=== PATIENT | female | born 1960 | race Caucasian/White ===

== ENCOUNTER → 2020-03-18 10:47 | Outpatient (BNVA) | payer OTHER, SELFPAY | PROVIDERS: PCP Internal Medicine; Visit Provider Physician Assistant Medical | DX: M25.531 Pain in right wrist (principal) | CPT/HCPCS: 99203 ==

== ENCOUNTER → 2020-03-25 09:56 | Outpatient (BNVA) | payer OTHER, SELFPAY | PROVIDERS: PCP Internal Medicine; Visit Provider Physician Assistant Medical | DX: M65.4 Radial styloid tenosynovitis [de Quervain] (principal) | CPT/HCPCS: 99213 ==

== ENCOUNTER → 2020-04-07 09:35 | Outpatient (BNVA) | payer OTHER, SELFPAY | PROVIDERS: PCP Internal Medicine; Visit Provider Physician Assistant Medical | DX: M18.11 Unilateral primary osteoarthritis of first carpometacarpal joint, right hand (principal) | CPT/HCPCS: 73110; 73130; 99213 ==

== ENCOUNTER 2020-04-20 08:30 | Outpatient (RCR) | payer OTHER, SELFPAY ==
--- NOTE | 2020-04-20 09:23 | MHC.OT.DC ---
[address] [phone] F: [phone] Occupational Therapy Discharge Note Provider: JOO ESCUDERO Diagnosis: RIGHT DEQUERVAINS TENOSYNOVITIS Date of Surgery: Date of Evaluation: 03/22/20 Date of Discharge: 04/20/20 Treatments to Date: 11 Cancellations to Date: 0 No Shows to Date: 0 Discharge Status: Recommend MD Follow-up Discharge Summary: Pt seen for right Dequervains tenosynovitis due to strain at work with slow improvement in pain and strength. 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 Recent onset of thumb volar mcpj pain with mild thumb edema, no thickening of flexor tendon and no digit locking in flexion. Today she presents with inc in pain , dec strength and dec in dexterity on the Functional Dexterity Test. Pt to follow up with MD tomorrow. Skilled OT is not indicated at this time Electronically Signed By: Mandie Pagan OT CHT CLT Reviewed/agree with student documentation: N/A Therapist: LUCIEN CALVO OTR/L Please Sign and return to therapist, thank you for your referral.
== END 2020-05-05 07:28 | disposition other institution (70) ==
LOC: HO.OT 08:30
PROVIDERS: PCP Internal Medicine; Visit Provider Physician Assistant Medical
DX: M65.4 Radial styloid tenosynovitis [de Quervain] (principal)
CPT/HCPCS: 97033; 97035; 97110; 97140; 97165

== ENCOUNTER 2020-04-20 16:24 | Outpatient (REF) | payer OTHER, SELFPAY ==
--- NOTE | ~2020-04-20 | MM_ITS ---
EXAMINATION: MM SCREENING DIGITAL BREAST TOMOSYNTHESIS, BILATERAL CLINICAL INFORMATION: Screening. Asymptomatic. The lifetime risk of breast cancer based on the Tyrer-Cuzick Model is 8.5%. COMPARISON: Mammography: April 15, 2019 and studies dating back to March 11, 2013 TECHNIQUE: Digital breast tomosynthesis is performed in both the craniocaudal and mediolateral oblique views along with computer-aided detection (CAD). Synthesized 2D images are generated from the tomosynthesis. FINDINGS: The breasts are heterogeneously dense, which may obscure small masses (ACR BI-RADS breast composition Category c). There are no significant masses, abnormal calcifications, or other abnormalities. MM/MM tomosynthesis screening BI IMPRESSION: There are no significant changes from prior study. ASSESSMENT: BI-RADS 1: Negative RECOMMENDATION: Routine annual mammography screening. This patient's information was entered into a reminder system with a target due date for their next mammogram.
== END 2020-04-20 16:25 | disposition home or self-care (01) ==
LOC: HO.MAMMO 16:24
PROVIDERS: Visit Provider Internal Medicine
DX: Z12.31 Encounter for screening mammogram for malignant neoplasm of breast (principal)
CPT/HCPCS: 77063; 77067

== ENCOUNTER → 2020-04-21 09:07 | Outpatient (BNVA) | payer OTHER, SELFPAY | PROVIDERS: PCP Internal Medicine; Visit Provider Physician Assistant Medical | DX: M18.11 Unilateral primary osteoarthritis of first carpometacarpal joint, right hand (principal); M65.811 Other synovitis and tenosynovitis, right shoulder | CPT/HCPCS: 99213 ==

== ENCOUNTER → 2020-05-02 10:06 | Outpatient (BNVA) | payer OTHER, SELFPAY | PROVIDERS: PCP Internal Medicine; Visit Provider Physician Assistant | DX: S63.8X1D Sprain of other part of right wrist and hand, subsequent encounter (principal); X58.XXXD Exposure to other specified factors, subsequent encounter | CPT/HCPCS: 99213 ==

== ENCOUNTER 2020-05-09 17:12 | Outpatient (REF) | payer OTHER, SELFPAY | END 2020-05-09 17:13 | disposition home or self-care (01) | LOC: HO.HOSX 17:12 | PROVIDERS: Visit Provider Orthopaedic Surgery | DX: Z13.89 Encounter for screening for other disorder (principal) ==

== ENCOUNTER → 2020-05-10 10:49 | Outpatient (BNVA) | payer OTHER, SELFPAY | PROVIDERS: Visit Provider Orthopaedic Surgery | DX: M18.11 Unilateral primary osteoarthritis of first carpometacarpal joint, right hand (principal) | CPT/HCPCS: 20600; 99202; J1020 ==

== ENCOUNTER → 2020-05-16 10:12 | Outpatient (BNVA) | payer OTHER, SELFPAY | PROVIDERS: PCP Internal Medicine; Visit Provider Physician Assistant | DX: M79.644 Pain in right finger(s) (principal) | CPT/HCPCS: 99213 ==

== ENCOUNTER 2020-06-20 17:51 | Outpatient (REF) | payer OTHER, SELFPAY ==
--- NOTE | ~2020-06-20 | XR_ITS ---
EXAMINATION: XR WRIST, RIGHT CLINICAL INFORMATION: Pain right wrist. COMPARISON: None TECHNIQUE: PA, lateral, and oblique views of the right wrist. FINDINGS: The bones and soft tissues are normal. No fracture. Alignment is anatomic with normal joint spaces. No erosions or abnormal soft tissue calcifications. XR/XR wrist RT min 3V IMPRESSION: Unremarkable right wrist exam.
== END 2020-06-20 17:52 | disposition home or self-care (01) ==
LOC: HO.HOSX 17:51
PROVIDERS: Visit Provider Orthopaedic Surgery
DX: M25.531 Pain in right wrist (principal)
CPT/HCPCS: 73110

== ENCOUNTER → 2020-06-21 08:21 | Outpatient (BNVA) | payer OTHER, SELFPAY | PROVIDERS: PCP Internal Medicine; Visit Provider Orthopaedic Surgery | DX: M18.11 Unilateral primary osteoarthritis of first carpometacarpal joint, right hand (principal); R20.0 Anesthesia of skin; R20.2 Paresthesia of skin | CPT/HCPCS: 99212 ==

== ENCOUNTER 2020-07-18 11:58 | Outpatient (REF) | payer OTHER, SELFPAY ==
[2020-07-18 12:05] LABS: MANUAL DIFF FLAG NO
[2020-07-18 12:33] LABS: Basophils Percent Auto 0.2 % (0-2); Eosinophils Absolute Auto 0.4 X10*3/uL (0.0-0.4); Hemoglobin 14.3 g/dl (12.0-16.0); Imm Gran Abs Auto 0.04 X10*3/uL (0.00-0.03); Imm Gran Pct Auto 0.5 % (0.0-0.4); Lymphocytes Absolute Auto 2.5 X10*3/uL (1.2-4.9); Lymphocytes Percent Auto 29.3 % (20-40); Mean Corpuscular HGB Conc 33.3 g/dl (31.0-35.0); Mean Corpuscular Hemoglobin 31.6 pg (27.0-33.0); Mean Corpuscular Volume 95.1 fL (80-98); Mean Platelet Volume 12.9 fL (9.4-12.3); Monocytes Absolute Auto 0.8 X10*3/uL (0.1-1.2); Monocytes Percent Auto 8.7 % (2-11); Neutrophils Absolute Auto 4.9 X10*3/uL (2.0-8.3); Neutrophils Percent Auto 56.3 % (45-73); Platelet Count 239 X10*3/uL (160-400); Red Blood Count 4.52 X10*6/uL (4.20-5.50); Red Cell Distribution Width 12.8 % (11.0-16.0); White Blood Count 8.7 X10*3/uL (4.8-10.8)
[2020-07-18 12:53] LABS: Glucose Urine UA NEG (NEG); Leukocyte Esterase Urine NEG (NEG); Nitrite Urine NEG (NEG); Specific Gravity - Urine 1.025 (1.005-1.025); Urine Blood NEG (NEG); Urine Ketones NEG (NEG); Urine Protein 1+ MG/DL (NEG-TRACE)
[2020-07-18 13:00] LABS: Appearance Urine CLEAR; Color Urine YELLOW
[2020-07-18 13:12] LABS: Estimated Average Glucose 128 mg/dL; Hemoglobin A1c % 6.1 %
[2020-07-18 13:19] LABS: Bacteria Urine 1+ /LPF; Mucus Urine 3+ /LPF; RBC Urine 0-2 /HPF (0); Squamous Epithelial Cell Urine 2+ /LPF; WBC Urine 0 /HPF (0-4)
[2020-07-18 13:28] LABS: Alanine Aminotransferase 21 U/L (0-31); Albumin Level 4.4 g/dL (3.5-5.0); Alkaline Phosphatase 67 U/L (39-117); Anion Gap 16 (12-20); Aspartate Amino Transferase 15 U/L (5-31); Bilirubin Total 0.6 mg/dL (0.0-1.0); Blood Urea Nitrogen 18 mg/dL (9-16); Calcium 9.7 mg/dL (8.4-10.2); Carbon Dioxide 26 mmol/L (22-29); Chloride 104 mmol/L (96-108); Cholesterol 218 mg/dL; Estimated Glomerular Filt Rate > 60; Glucose Fasting 133 mg/dL (60-99); HDL Cholesterol 54 mg/dL; LDL Cholesterol Calculated 150 mg/dl; Potassium 3.7 mmol/L (3.3-5.1); Sodium 142 mmol/L (135-145); Total Protein 7.1 g/dL (6.5-8.0); Triglycerides 74 mg/dL
[2020-07-18 13:40] LABS: TSH reflex Free T4 1.57 uIU/mL (0.32-4.0); Vitamin D 25-OH Total 39.5 ng/mL (>30)
== END 2020-07-18 11:59 | disposition home or self-care (01) ==
LOC: HO.LNP 11:58
PROVIDERS: Visit Provider Internal Medicine
DX: Z00.00 Encounter for general adult medical examination without abnormal findings (principal); E03.9 Hypothyroidism, unspecified; R73.03 Prediabetes; I10 Essential (primary) hypertension; E78.00 Pure hypercholesterolemia, unspecified; E55.9 Vitamin D deficiency, unspecified
CPT/HCPCS: 80053; 80061; 81001; 81003; 82043; 82306; 83036; 84443; 85025

== ENCOUNTER 2020-08-11 08:41 | Outpatient (REF) | payer OTHER, SELFPAY ==
--- NOTE | 2020-08-11 08:44 | EMG_ITS ---
Right median and ulnar motor and sensory studies were performed. Right radial sensory study was performed and paraspinal muscles were tested with a needle. IMPRESSION: [id number] right median neuropathy across carpal tunnel. MD GENEVA Macias/KASSANDRA / [phone]
== END 2020-08-11 08:42 | disposition home or self-care (01) ==
LOC: HO.NEURO 08:41
PROVIDERS: PCP Internal Medicine; Visit Provider Orthopaedic Surgery
DX: R20.0 Anesthesia of skin (principal); R20.2 Paresthesia of skin
CPT/HCPCS: 95886; 95909

== ENCOUNTER → 2020-09-02 13:09 | Outpatient (BNVA) | payer OTHER, SELFPAY | PROVIDERS: PCP Internal Medicine; Visit Provider Physician Assistant Medical ==

== ENCOUNTER → 2020-09-21 13:24 | Outpatient (BNVA) | payer OTHER, SELFPAY | PROVIDERS: Visit Provider Orthopaedic Surgery | DX: G56.01 Carpal tunnel syndrome, right upper limb (principal); M18.11 Unilateral primary osteoarthritis of first carpometacarpal joint, right hand | CPT/HCPCS: 99212 ==

== ENCOUNTER 2020-10-25 09:25 | Day surgery (SDC) | payer OTHER, SELFPAY ==
[2020-10-25 10:00] VITALS: BP 168/77; PULSE 70; RESP 20; TEMP 36.7; O2SAT 97
[2020-10-25 11:45] VITALS: BP 148/77; PULSE 72; RESP 18; TEMP 36.3; O2SAT 95
--- NOTE | 2020-10-25 11:53 | MHC.SHP ---
Pre-Procedural Eval Section A Date of Service: 10/25/20 The patient is an INPATIENT: No Changes since office visit: No Cold of Flu in the past 2 weeks, No New Medical Problems, No Changes in Medication and No Patient answered all questions The History & Physical has been completed within 30 days and I have reviewed it.: Yes Section B Chief Complaint: carpal tinnel Allergies: Allergies Allergy/AdvReac Type Severity Reaction Status Date / Time amoxicillin [AMOXICILLIN] Allergy Severe HIVES/RASH, Verified 09/21/20 13:44 rash/hives ibuprofen Allergy Severe rash Verified 10/25/20 09:45 Sulfa (Sulfonamide Allergy Severe HIVES/RASH, Verified 09/21/20 13:44 Antibiotics) rash/hives [SULFA(SULFONAMIDE ANTIBIOTICS)] codeine [CODEINE] Allergy Mild VOMITING Verified 09/21/20 13:44 Plan I have reviewed the history and physical and performed a pertinent physical examination on my patient. No changes have occurred unless specified.
--- NOTE | 2020-10-25 11:53 | W.PM.OPN ---
Operative Note Operative Note Date of Service: 10/25/20 Narrative: Preop diagnosis: 1. Right Carpal tunnel syndrome Postop diagnosis: same Procedure: 1. Right Carpal tunnel release Surgeon: Michelle Cox MD Anesthesia: local block using 1% lidocaine with epinephrine Findings: Thickened transverse carpal ligament. EBL: Less than 5 mL Specimens: None Complications: None Disposition: Brought to recovery room in stable condition Plan: Follow-up for 7-10 days for wound check and suture removal Indications: The patient is 60 years old, with right carpal tunnel syndrome that has been unresponsive to nonoperative management. The risks and benefits of operative treatment including but not limited to risk of damage to blood vessels, nerves, tendons, infection, persistent pain, persistent symptoms, or possible need for additional surgery were discussed with the patient and the patient wishes to proceed with surgery. Procedure: Once consent was obtained a local block was performed using a combination of 1% lidocaine with epinephrine. The patient was then brought back to the operating suite and placed on the operative table in supine position. A tourniquet was applied to the proximal aspect of the right upper extremity and the limb was prepped and draped in a standard surgical fashion. Once assured that we had a good block, a 1.5 cm longitudinal incision was made centered over the carpal tunnel. The incision was made through the skin to the subcutaneous tissues using a #15 blade. Dissection was made down to the level of the transverse carpal ligament with care being taken to protect the palmar cutaneous nerve. Once the transverse carpal ligament was clearly visualized, a longitudinal incision was made in the transverse carpal ligament 1st using a #15 blade, then using tenotomy scissors under direct visualization. Care was taken to look for and protect the motor branch of the median nerve when seen in this area. Once satisfied with our carpal tunnel release the wound was copiously irrigated with normal saline and hemostasis was obtained with a brief period of local pressure. The skin edges were reapproximated with some 5.0 nylon suture material and a sterile dressing was applied. The patient appears to have tolerated the procedure well and with no complications. All digits were well vascularized at the conclusion of the case.
== END 2020-10-25 12:17 | disposition home or self-care (01) ==
PROVIDERS: PCP Internal Medicine; Visit Provider Orthopaedic Surgery
PROC: (CPT 64721; principal; 2020-10-25 10:50)
DX: G56.01 Carpal tunnel syndrome, right upper limb (principal); M18.11 Unilateral primary osteoarthritis of first carpometacarpal joint, right hand
CPT/HCPCS: 64721

== ENCOUNTER → 2020-11-07 12:27 | Outpatient (BNVA) | payer OTHER, SELFPAY | PROVIDERS: PCP Internal Medicine; Visit Provider Orthopaedic Surgery | DX: Z47.89 Encounter for other orthopedic aftercare (principal); Z86.69 Personal history of other diseases of the nervous system and sense organs | CPT/HCPCS: 99212 ==

== ENCOUNTER 2020-11-25 08:06 | Outpatient (REF) | payer OTHER, SELFPAY ==
--- NOTE | ~2020-11-25 | MM_ITS ---
EXAMINATION: BONE DENSITOMETRY CLINICAL INDICATION: Osteopenia. COMPARISON: Baseline BD dated 02/14/2018. TECHNIQUE: Using a [employer] DXA System (software version: 13.1) manufactured by [employer], dual-energy x-ray absorptiometry was performed of the lumbar spine and left hip. The images are of good technical quality. Summary results are attached. FINDINGS: AP SPINE L1-L4: Current: BMD 1.033 g/cm2, Z-score -0.8, T-score -1.2, osteopenia, 2.2% decrease from baseline (<5% change is not significant). Baseline: BMD 1.056 g/cm2. LEFT FEMUR, NECK: Current: BMD 0.925 g/cm2, Z-score -0.1, T-score -0.8, normal. Baseline: BMD 0.858 g/cm2. LEFT FEMUR, TOTAL: Current: BMD 1.024 g/cm2, Z-score 0.5, T-score 0.1, normal, 9.2% increase from baseline (<5% change is not significant). Baseline: BMD 0.938 g/cm2. IDENTIFIED RISK FACTORS: Menopause, family history (parent hip fracture), hyperthyroid, secondary osteoporosis, Thiazide. HISTORY OF FRACTURE: None listed. MEDICATIONS: Calcium, vitamin D. MM/XR DEXA axial skeleton IMPRESSION: 1. DIAGNOSIS: Osteopenia based on the lowest T-score value of -1.2 in the lumbar spine applying World Health Organization criteria. 2. 10-YEAR FRACTURE RISK PREDICTION, FRAX: Major osteoporotic fracture (clinical spine, forearm, hip or shoulder) 12.3%. Hip fracture 0.3%. 3. Treatment Recommendations: NOF guidelines recommend consideration for treatment in postmenopausal women and men age 50 and older presenting with the following: -A hip or vertebral (clinical or morphometric) fracture. -T-score less than or equal to -2.5 at the femoral neck or spine after appropriate evaluation to exclude secondary causes. -Low bone mass at the hip or spine and a 10-year fracture probability by FRAX of greater than or equal to 3% for hip fracture or greater than or equal to 20% for major osteoporotic fracture based on the [place] adapted WHO algorithm. 4. Other Recommendations: All treatment decisions require clinical judgment and consideration of individual patient factors, including patient preferences, comorbidities, previous drug use, risk factors not captured in the FRAX model (e.g. frailty, falls, vitamin D deficiency, increased bone turnover, interval significant decline in bone density) and possible under or overestimation of fracture risk by FRAX. Additional medical evaluation for secondary cause of low bone mineral density may be appropriate. FUTURE SCAN RECOMMENDATION: People with diagnosed cases of osteoporosis or at high risk for fracture should have regular bone mineral density tests. For patients eligible for Medicare, routine testing is allowed once every 2 years. The testing frequency can be increased to one year for patients who have rapidly progressing disease, those who are receiving or discontinuing medical therapy to restore bone mass, or have additional risk factors.
== END 2020-11-25 08:07 | disposition home or self-care (01) ==
LOC: HO.MAMMO 08:06
PROVIDERS: Visit Provider Internal Medicine
DX: Z13.820 Encounter for screening for osteoporosis (principal); M85.80 Other specified disorders of bone density and structure, unspecified site; Z78.0 Asymptomatic menopausal state; Z87.81 Personal history of (healed) traumatic fracture; Z79.899 Other long term (current) drug therapy
CPT/HCPCS: 77080

== ENCOUNTER → 2020-12-06 11:25 | Outpatient (BNVA) | payer OTHER, SELFPAY | PROVIDERS: Visit Provider Orthopaedic Surgery | DX: G56.01 Carpal tunnel syndrome, right upper limb (principal); M18.11 Unilateral primary osteoarthritis of first carpometacarpal joint, right hand; E03.9 Hypothyroidism, unspecified; Z87.891 Personal history of nicotine dependence | CPT/HCPCS: 99212 ==

== ENCOUNTER → 2021-01-10 11:25 | Outpatient (BNVA) | payer OTHER, SELFPAY | PROVIDERS: PCP Internal Medicine; Visit Provider Orthopaedic Surgery | DX: M18.11 Unilateral primary osteoarthritis of first carpometacarpal joint, right hand (principal); E03.9 Hypothyroidism, unspecified; G56.01 Carpal tunnel syndrome, right upper limb; Z88.6 Allergy status to analgesic agent; Z88.2 Allergy status to sulfonamides; Z88.8 Allergy status to other drugs, medicaments and biological substances; Z87.891 Personal history of nicotine dependence | CPT/HCPCS: 99212 ==

== ENCOUNTER 2021-01-13 11:00 | Outpatient (RCR) | payer OTHER, SELFPAY ==
--- NOTE | 2020-12-12 15:48 | MHC.OT.OEV ---
[address] [phone] F: [phone] Occupational Therapy Evaluation Diagnosis: CARPAL TUNNEL SYNDROME Date of Onset: 02/22/20 Date of Surgery: 10/25/20 Attending Provider: Michelle Benavides Prescribed Treatment: FRANCISCO SEARS Follow Up Appointment: 01/10/21 History of Current Condition: INJURY AT WORK WHERE SHE WAS PACKING ITEMS WITH NEED TO INCREASE PRESSURE/FORCE THROUGH HAND. SEEN IN OUTPATIENT OT FROM MARCH TO APRIL 2020. UNDERWENT R CTR WITH DR BENAVIDES ON 10/25/20. EMG 08/16/20 [id number] right median neuropathy across carpal tunnel. 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 REQUIRED TO LIFT ABOUT 20 POUNDS. HAS BEEN OUT OF WORK SINCE MID- JULY 2020. 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 OCCASIONAL TROUBLE WITH ZIPPERS. PICKING UP SMALLER ITEMS/ OBJECTS. Sleep: MILD DIFFICULTIES Driving: IMPROVING, USING RIGHT HAND MORE. Vision: EYE GLASSES Balance: WNL Pain Assessment Pain Score: 1-7/10 Pain Scale Used: Numeric (0 - 10) Pain Location and Description: 1-2/10 AT REST 4-7/10 WITH USE SHARP, THROBBING THENAR AND HYPOTHENAR EMINENCE OF RIGHT HAND Aggravating Factors: GRIPPING Alleviating Factors: TYLENOL 4-5 HOURS. HAS NOT USED HEAT/ ICE RECENTLY. USED ICE AFTER SURGERY. USING LEFT HAND FOR LIFTING TASKS OR PAINFUL ACTIVITIES. Skin and Soft Tissue Assessment Skin and Soft Tissue: Redness Swelling Scar Tissue Comments: HEALED VOLAR SCAR, EDEMA TO VOLAR PALM Sensory Assessment Temperature: Light Touch: WFL Proprioception: Vibration: Comments: SEMMES JOSSELIN - DIMINISHED LIGHT TOUCH TO VOLAR PALM AT SURGICAL SITE Edema Assessment Upper Extremity: Right Impaired Lower Extremity: Comments: MILD EDEMA TO VOLAR PALM AT SURGICAL SITE Dexterity Assessment Dexterity: Right Impaired Comments: 9 HOLE PEG TEST: RIGHT 33 SECONDS, LEFT 31 SECONDS Special Tests Comments: AROM(PROM) Strength Wrist Flexion: R 50, L 60 Extension: R 50, L 70 Ulnar Deviation: Radial Deviation: Comments: MILD DISCOMFORT WITH ULNAR DEVIATION ON RIGHT Flexion: Extension: Ulnar Deviation: Radial Deviation: Comments: Thumb Thumb CMC Flexion: Thumb MCP Flexion: Thumb IP Flexion: Radial Abduction: Palmar Abduction: Flora (Kapandji 0-10): R 9/10, L 10/10 Comments: Digits Index MCP: PIP: DIP: Long MCP: PIP: DIP: Ring MCP: PIP: DIP: Small MCP: PIP: DIP: Comments: Gross Grasp: R 15, L 58 Lateral Pinch: R 8, L 16 Two-Point Pinch: R 5, L 11 Three-Jaw Vinay: R 5, L 11 Comments: SUBMAX EFFORT RIGHT STRENGTH TESTING; PAIN WITH TWO POINT PINCH Patient Education Primary Language: Paraguayan Sub Prior Required: No Current Knowledge: Understands information with skills for self-management Teaching Method: Demonstration Handouts Verbal Education Needs Identified on Evaluation: ADL's Disease Information Equipment Use Exercise Pain Safety How did patient/family demonstrate learning? Patient demonstrates Patient verbalizes Barriers to Learning: None Readiness for Learning: Accepting Who was educated? Patient Comments: Plan of Care Assessment: CHRISTINE IS 8 WEEKS, 6 DAYS S/P RIGHT CTR WITH DR BENAVIDES. SHE REPORTS A 55% LIMITATION PER THE QUICK DASH ASSESSMENT. SHE REPORTS DIFFICULTIES WITH GRIPPING AND LIFTING, INCLUDING OPENING TIGHT JARS OR MEDICINE BOTTLES. SHE IS COMPENSATING AT TIMES AND USING NON-DOMINANT LEFT HAND FOR LIFTING AND GRIPPING TASKS, INCLUDING HOLDING STEERING WHEEL WHEN DRIVING AND CARRYING LAUNDRY BASKET. ONGOING SKILLED OT IS WARRANTED TO ACHIEVE OPTIMAL FUNCTIONAL LEVEL AND IMPROVE QOL FOR A SUCCESSFUL RETURN TO WORK AND HOBBIES. STG Duration: 3 WEEKS Short Term Goals: IND HEP IND SCAR MOBILIZATION IND EDEMA MANAGEMENT IND DESENSITIZATION STRATEGIES IND JOINT PROTECTION REPORT <4/10 PAIN WITH ADLs AND LIGHT IADLs R WRIST EXTENSION >60 DEGREES LTG Duration: 5 WEEKS Charge Out Clerk Goals: QUICK DASH <30% TOLERATE LIFTING > 20 POUNDS WITH <2/10 PAIN AND PROPER LIFTING TECHNIQUES GRASP > 35 POUNDS IND PROGRESSION OF HEP Frequency and Duration: The patient will be seen 2X/WEEK FOR 5 WEEKS Treatment Plan: Therapeutic Exercise Therapeutic Activity Home Exercise Program Splinting Neuro Re-ed Patient Education Desensitization/Sensory Re-ed Edema Control ADL Training Ultrasound NMES Iontophoresis Paraffin Fluidotherapy MHP Cold Packs Joint Mobilization Soft Tissue Mobilization Kinesiotaping Electronically Signed By: LUCIEN CALVO OTR/Zack Reviewed/agree with student documentation: N/A Therapist: Please sign and return to therapist, Thank you for your referral.
--- NOTE | 2021-02-14 13:27 | MHC.OT.DC ---
[address] [phone] F: [phone] Occupational Therapy Discharge Note Provider: Michelle Cox Diagnosis: CARPAL TUNNEL SYNDROME Date of Surgery: 10/25/20 Date of Evaluation: 12/12/20 Date of Discharge: 02/14/21 Treatments to Date: 7 Cancellations to Date: 1 No Shows to Date: 0 Discharge Status: Achieved Goals Improved Function Independent with HEP Patient Elected to Stop Discharge Summary: MS BEVERLY HAD OVERALL BEEN DOING WELL WITH A DECREASE IN PAIN, FATIGUE AND WRIST ROM. HER STRENGTH WAS IMPROVING AND SHE WAS IND WITH HER HEP. Pt WAS CLEARED TO RETURN TO WORK, WHERE IT REQUIRED LIFTING, MOVING AND PACKING BOXES USING REPETITIVE PINCHING AND GRIPPING. Pt HAS ELECTED TO STOP ADDITIONAL OT SESSIONS AND WILL BE TRANSITIONED TO A HOME BASED PROGRAM AT THIS TIME. D/C OT Electronically Signed By: LUCIEN CALVO OTR/L Reviewed/agree with student documentation: N/A Therapist: Please Sign and return to therapist, thank you for your referral.
== END 2021-02-14 13:25 | disposition home or self-care (01) ==
LOC: HO.OT 11:00
PROVIDERS: Visit Provider Orthopaedic Surgery
DX: G56.01 Carpal tunnel syndrome, right upper limb (principal); M18.11 Unilateral primary osteoarthritis of first carpometacarpal joint, right hand
CPT/HCPCS: 97033; 97035; 97110; 97166

== ENCOUNTER 2021-03-06 10:54 | Emergency (ER) | payer OTHER, MEDICAID, SELFPAY ==
--- NOTE | ~2021-03-06 | XR_ITS ---
EXAMINATION: XR CHEST CLINICAL INFORMATION: Shortness of breath COMPARISON: None TECHNIQUE: Frontal view of the chest was obtained. FINDINGS: No significant abnormality is noted involving the heart, lungs, mediastinum, bony thorax or soft tissues. XR/XR chest 1V IMPRESSION: Unremarkable chest examination.
[2021-03-06 10:57] VITALS: BP 152/80; BP 153/79; PULSE 67; PULSE 72; RESP 18; TEMP 36.9; O2SAT 96; O2SAT 99; BMI 34.5
--- NOTE | 2021-03-06 10:58 | ED.WEAKNESS ---
HPI - Weakness General Chief complaint: Upper Respiratory Symptoms Stated complaint: NAUSEA, NOT FEELING WELL,SOB, COVID EXPOSURE Time Seen by Provider: 03/06/21 10:58 Source: patient Mode of arrival: ambulatory Limitations: no limitations History of Present Illness HPI Narrative: Patient feeling weak and lightheaded for past 3 days, now with Nausea and vomiting. Patient was in contact with COVID positive patient nine days ago. MD Complaint: generalized weakness Onset (ago): day(s) Duration: constant Severity: mild Associated symptoms: nausea/vomiting Related Data Home Medications Medication Instructions Recorded Confirmed cholecalciferol (vitamin D3) 10 10 mcg PO DAILY 05/10/20 mcg (400 unit) capsule hydrochlorothiazide 25 mg tablet 25 mg PO DAILY 05/10/20 levothyroxine 100 mcg tablet 100 mcg PO DAILY 05/10/20 metoprolol succinate 50 mg 50 mg PO DAILY 05/10/20 tablet,extended release 24 hr omeprazole 20 mg capsule,delayed 20 mg PO DAILY 05/10/20 release potassium chloride 10 mEq 10 meq PO DAILY 05/10/20 tablet,extended release Previous Rx's Medication Instructions Recorded hydrocodone 5 mg-acetaminophen 325 1 tab PO Q4-6H PRN #5 tab 10/25/20 mg tablet ondansetron 4 mg disintegrating 4 mg PO Q8H 4 Days #12 tab 03/06/21 tablet Allergies Allergy/AdvReac Type Severity Reaction Status Date / Time amoxicillin [AMOXICILLIN] Allergy Severe HIVES/RASH, Verified 01/10/21 11:53 rash/hives ibuprofen Allergy Severe rash Verified 01/10/21 11:53 Sulfa (Sulfonamide Allergy Severe HIVES/RASH, Verified 01/10/21 11:53 Antibiotics) rash/hives [SULFA(SULFONAMIDE ANTIBIOTICS)] codeine [CODEINE] Allergy Mild VOMITING Verified 01/10/21 11:53 hydrocodone AdvReac Vomiting Verified 01/10/21 11:53 Review of Systems Constitutional: Constitutional: Reports no additional constitutional complaints Eyes: Eyes: Reports no additional eye complaints ENT: Denies dizziness Cardiovascular: Cardiovascular: Reports no additional cardiovascular complaints Respiratory: Respiratory: Reports as per HPI Gastrointestinal: Gastrointestinal: Reports no additional gastrointestinal complaints Genitourinary: Genitourinary: Reports no additional female genitourinary complaints Musculoskeletal: Musculoskeletal: Reports no additional musculoskeletal complaints Integumentary/Breasts: Skin/Breast: Denies rash Neurologic: Reports system reviewed and no additional complaints, except as documented, Denies dizziness and Denies Sensory deficit (Neuro) Psychiatric: Psychiatric: Denies anxiety PMFSH Past Medical History Medical History Hypothyroid Surgical History H/O endoscopy Family History Family History Mother No problems noted. Father No problems noted. 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 Physical Exam Vital Signs: Vital Signs: Last Vital Signs Temp 98.4 F 03/06/21 10:57 Pulse 67 03/06/21 10:57 Resp 18 03/06/21 10:57 BP 153/79 H 03/06/21 10:57 Pulse Ox 99 03/06/21 10:57 BMI result Body Mass Index 34.5 Const: Other: Patient moaning, feeling weak Nutritional Appearance: average body habitus Orientation/consciousness: oriented to person and patient oriented x3 Limitations: no limitations HENMT: Head: Yes normal to inspection Ears: external ears normal General nose exam: Normal external nose present Mouth: Normal oral and palatal mucosa present and oropharynx normal Throat: Yes posterior oropharynx normal Eyes: General: appearance normal, both eyes and all related structures Neck: Other: supple Neck: Yes normal visual inspection Chest: Chest palpation & inspection: normal inspection of the chest Resp: Auscultation: clear to auscultation bilaterally Cardio: Jugular venous distension: no JVD Rate: regular rate Rhythm: regular rhythm Heart sounds: S1 normal heart sound present and S2 normal heart sound present GI: Inspection: Yes normal to inspection Palpation (GI): Soft to palpation, nontender and No hepatosplenomegaly present Auscultation: normal bowel sounds : General: Yes no CVA tenderness Back/Spine/Pelvis: Back: no CVA tenderness Skin: General skin exam: no rashes or lesions noted Neuro: General: oriented to person and patient oriented x3 Cranial nerves: Yes CN's II-XII intact bilaterally Motor exam (neuro): 5/5 motor strength present throughout Sensory Exam: No Sensory deficit (Neuro) Extrem: General: Yes normal to inspection Psych: Appearance: grossly normal Course Reevaluation(s) Reevaluation #1: Patient is covid positive, discussed quarantine with patient to take zofran at home Time: 13:08 MDM - Weakness Lab Data Result diagrams: 03/06/21 11:54 03/06/21 11:54 Labs: Lab Results 03/06/21 03/06/21 03/06/21 Range/Units 11:50 11:54 11:54 WBC 3.4 L (4.8-10.8) X10*3/uL RBC 4.33 (4.20-5.50) X10*6/uL Hgb 14.0 (12.0-16.0) g/dl Hct 40.1 (37.0-47.0) % MCV 92.6 (80.0-98.0) fL MCH 32.3 (27.0-33.0) pg MCHC 34.9 (31.0-35.0) g/dl RDW 12.0 (11.0-16.0) % Plt Count 159 L (160-400) X10*3/uL MPV 12.3 (9.4-12.3) fL Immature Gran % (Auto) 0.3 (0.0-0.4) % Neut % (Auto) 68.6 (45-73) % Lymph % (Auto) 22.1 (20-40) % [place] % (Auto) 8.7 (2-11) % Eos % (Auto) 0.3 (0-4) % Baso % (Auto) 0.0 (0-2) % Lymph # (Auto) 0.7 L (1.2-4.9) X10*3/uL [place] # (Auto) 0.3 (0.1-1.2) X10*3/uL Eos # (Auto) 0.0 (0.0-0.4) X10*3/uL Baso # (Auto) 0.0 (0.0-0.2) X10*3/uL Abs Immat Gran (auto) 0.01 (0.00-0.03) X10*3/uL Absolute Neuts (auto) 2.3 (2.0-8.3) x10*3/uL Absolute Nucleated RBC 0.000 (0.0-0.012) X10*3/uL Nucleated RBC % (auto) 0.0 (0.0-0.2) /100WBC Sodium 138 (135-145) mmol/L Potassium 3.6 (3.3-5.1) mmol/L Chloride 100 (96-108) mmol/L Carbon Dioxide 24 (22-29) mmol/L Anion Gap 18 (12-20) BUN 17 H (9-16) mg/dL Creatinine 0.88 (0.5-1.4) mg/dL Estim Creat Clear Calc 73.4 Estimated GFR > 60 Random Glucose 176 H (60-115) mg/dL Calcium 9.4 (8.4-10.2) mg/dL COVID-19 (ILSA) Positive A (Negative) COVID-19 Clin Com See Note Imaging Data Chest x-ray: Radiologist's impression: FINDINGS: No significant abnormality is noted involving the heart, lungs, mediastinum, bony thorax or soft tissues. XR/XR chest 1V IMPRESSION: Unremarkable chest examination. ? Discharge Plan Discharge Clinical Impression: COVID-19 Patient Disposition: Home, Self-Care Instructions: COVID-19 (Coronavirus Disease 2019) (ED) Prescriptions: New ondansetron 4 mg tablet,disintegrating 4 mg PO Q8H 4 Days Qty: 12 RF: 0 No Action hydrocodone-acetaminophen 5-325 mg tablet 1 tab PO Q4-6H PRN (Reason: pain) Qty: 5 RF: 0 omeprazole 20 mg capsule,delayed release(DR/EC) 20 mg PO DAILY RF: 0 hydrochlorothiazide 25 mg tablet 25 mg PO DAILY RF: 0 levothyroxine 100 mcg tablet 100 mcg PO DAILY RF: 0 metoprolol succinate 50 mg tablet extended release 24 hr 50 mg PO DAILY RF: 0 potassium chloride 10 mEq tablet extended release 10 meq PO DAILY RF: 0 cholecalciferol (vitamin D3) 10 mcg (400 unit) capsule 10 mcg PO DAILY RF: 0 Referrals: Armond Lopez MD [Primary Care Provider] - 10 days
[2021-03-06 11:57] LABS: MANUAL DIFF FLAG NO
[2021-03-06 11:59] LABS: Eosinophils Percent Auto 0.3 % (0-4); Hematocrit 40.1 % (37.0-47.0); Imm Gran Abs Auto 0.01 X10*3/uL (0.00-0.03); Imm Gran Pct Auto 0.3 % (0.0-0.4); Lymphocytes Absolute Auto 0.7 X10*3/uL (1.2-4.9); Lymphocytes Percent Auto 22.1 % (20-40); Mean Corpuscular HGB Conc 34.9 g/dl (31.0-35.0); Mean Corpuscular Hemoglobin 32.3 pg (27.0-33.0); Mean Corpuscular Volume 92.6 fL (80.0-98.0); Mean Platelet Volume 12.3 fL (9.4-12.3); Monocytes Absolute Auto 0.3 X10*3/uL (0.1-1.2); Monocytes Percent Auto 8.7 % (2-11); Neutrophils Absolute Auto 2.3 x10*3/uL (2.0-8.3); Neutrophils Percent Auto 68.6 % (45-73); Platelet Count 159 X10*3/uL (160-400); Red Blood Count 4.33 X10*6/uL (4.20-5.50); White Blood Count 3.4 X10*3/uL (4.8-10.8)
[2021-03-06] MEDS: 0.9 % Sodium Chloride 1,000 ML 999 ML IVCONT ×2 (12:02→12:39)
[2021-03-06] MEDS: ondansetron HCL 4 MG/2 ML VIAL IVPUSH (12:02)
[2021-03-06 12:06] LABS: COVID-19 Test Positive (Negative)
[2021-03-06 12:18] LABS: Anion Gap 18 (12-20); Blood Urea Nitrogen 17 mg/dL (9-16); Calcium 9.4 mg/dL (8.4-10.2); Carbon Dioxide 24 mmol/L (22-29); Chloride 100 mmol/L (96-108); Creatinine Clr Calc Pharmacy 73.4; Estimated Glomerular Filt Rate > 60; Glucose Random 176 mg/dL (60-115); Potassium 3.6 mmol/L (3.3-5.1); Sodium 138 mmol/L (135-145)
== END 2021-03-06 13:45 | disposition home or self-care (01) ==
PROVIDERS: Emergency Provider Emergency Medicine; PCP Internal Medicine
DX: U07.1 COVID-19 (principal); R11.2 Nausea with vomiting, unspecified
CPT/HCPCS: 36415; 71045; 80048; 85025; 87635; 96361; 96374; 99283; 99284; J2405

== ENCOUNTER 2021-03-09 13:03 | Emergency (ER) | payer OTHER, MEDICAID, SELFPAY ==
[2021-03-09 13:10] VITALS: BP 148/98; PULSE 78; O2SAT 99
[2021-03-09 13:17] VITALS: BP 141/65; PULSE 67; RESP 16; TEMP 36.7; O2SAT 98; BMI 32.7
--- NOTE | 2021-03-09 13:49 | ED_ITS ---
HPI - Weakness General Chief complaint: Nausea/Vomiting/Diarrhea Stated complaint: GENERAL WEAKNESS, COVID + Time Seen by Provider: 03/09/21 13:04 Source: patient Mode of arrival: EMS Limitations: no limitations History of Present Illness HPI Narrative: Patient is a 60-year-old female with past medical history including hypertension, hypothyroidism, GERD, who is presenting to the emergency department for evaluation of a fatigue, weakness and poor p.o. intake. Reports 6 days ago she developed sinus congestion cough after exposed to someone with COVID-19 positive. She was evaluated in the emergency department 3 days ago was found to be COVID-19 positive, received IV fluid hydration discharge home with prescription. Currently, complaining of dizziness and she reports that due to her significant fatigue she has been unable to really eat or drink much at home. She is frequently falling asleep, therefore is only able to take a few sips of water or Gatorade before falling asleep and admits to avoiding food intake later in the evening she feels too weak to walk to the bathroom, and she feels too weak to walk to the kitchen during the day. She reports feeling significantly dehydrated. Denies fevers, chills, cough, chest pain, shortness of breath, palpitations. MD Complaint: generalized weakness and lack of energy Onset (ago): day(s) Duration: constant Exacerbating factors: movement and exertion Context: recent illness (COVID-19 infection) Associated symptoms: loss of appetite Related Data Home Medications Medication Instructions Recorded Confirmed cholecalciferol (vitamin D3) 10 10 mcg PO DAILY 05/10/20 mcg (400 unit) capsule hydrochlorothiazide 25 mg tablet 25 mg PO DAILY 05/10/20 levothyroxine 100 mcg tablet 100 mcg PO DAILY 05/10/20 metoprolol succinate 50 mg 50 mg PO DAILY 05/10/20 tablet,extended release 24 hr omeprazole 20 mg capsule,delayed 20 mg PO DAILY 05/10/20 release potassium chloride 10 mEq 10 meq PO DAILY 05/10/20 tablet,extended release Previous Rx's Medication Instructions Recorded hydrocodone 5 mg-acetaminophen 325 1 tab PO Q4-6H PRN #5 tab 10/25/20 mg tablet ondansetron 4 mg disintegrating 4 mg PO Q8H 4 Days #12 tab 03/06/21 tablet Allergies Allergy/AdvReac Type Severity Reaction Status Date / Time amoxicillin Allergy Severe HIVES/RASH, Verified 01/10/21 11:53 [AMOXICILLIN] rash/hives ibuprofen Allergy Severe rash Verified 01/10/21 11:53 Sulfa (Sulfonamide Allergy Severe HIVES/RASH, Verified 01/10/21 11:53 Antibiotics) rash/hives [SULFA(SULFONAMIDE ANTIBIOTICS)] codeine [CODEINE] Allergy Mild VOMITING Verified 01/10/21 11:53 hydrocodone AdvReac Vomiting Verified 01/10/21 11:53 Review of Systems Verdana 4l Review of Systems: Verdana 4d [place] 4Bd Constitutional: + weakness and fatigue. [place] 4d No weight loss, fever, chills [place] 4Bd HEENT: [place] 4d No visual loss, blurred vision, double vision or yellow sclera. No hearing loss, sneezing, congestion, runny nose or sore throat. [place]rialA[place] 4Bd Skin: No rash or itching. Cardiovascular: No chest pain, chest pressure or chest discomfort. No palpitations or pedal edema. Respiratory: No shortness of breath, cough or sputum production. Gastrointestinal: + Decreased appetite. No nausea, vomiting or diarrhea. No abdominal pain or blood in stool. Genitourinary: No burning micturition. No urinary frequency or incontinence. Neurologic: + dizziness. No headache, syncope, unilateral weakness, ataxia, numbness or tingling in the extremities. No change in bowel or bladder control. Musculoskeletal: No muscle pain, back pain, joint pain or stiffness. Hematologic: No bleeding or bruising. Lymphatics: No enlarged lymph nodes. Psychiatric:No depression or anxiety. Endocrine: No polyuria or polydipsia. [facility] Past Medical History Attestation statement: The following information was validated with the patient. Source: old records reviewed Medical History Hypothyroid Surgical History H/O endoscopy Family History Family History Mother No problems noted. Father No problems noted. 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 Blood pressure mildly elevated 141/65. Heart rate normal.? Respiration rate normal. Temperature normal.? Oxygen saturation normal. Appearance: Alert.?Oriented to person, place and time. No acute distress.?Normal affect. Eyes: Pupils equal, round and reactive to light.? ENT: Pharynx normal.?? Neck: Normal inspection.? Neck supple.?? CVS: Heart sounds normal. Normal heart rate and rhythm.? Pulses normal.?? Respiratory: No respiratory distress.? Lung sounds clear to auscultation bilaterally?? Abdomen: Soft and non-tender. Normoactive bowel sounds. No pulsatile mass.?? Skin: Skin warm and dry.? Normal skin color.? Normal skin turgor.?? Extremities: No lower extremity edema.? No calf ttp? Neuro: Moves all extremities spontaneously. Sensation intact bilaterally. No f ocal neuro deficits. Course Course Course Narrative: Patient is a 60-year-old with COVID-19 being evaluated for generalized weakness, fatigue, and poor appetite. Symptoms are most consistent with known COVID-19 infection, however, will obtain CBC and BMP to exclude anemia, dehydration improved acute kidney injury, electrolyte imbalance. 1L IV fluids ordered and patient encouraged oral fluid intake. Currently, patient unwilling to demonstrate ambulation ability and she is feeling too weak, will consider physical therapy evaluation if needed. Disposition pending results Reevaluation(s) Reevaluation #1: CBC and BMP unremarkable. She is afebrile, not tachycardic, ambulating with steady gait, is well-appearing. Tolerating p.o. fluids and food without vomiting. Has been awake the entire time while in the emergency department. Watching television at the time re-examination. Discussed keeping food and drink close by while at home, and perhaps setting an alarm every few hours so that if she is sleeping she may awake to have something to eat and drink. Patient to be discharged home, discussed return precautions, and follow-up with PCP in 1-3 days. All questions answered, patient agrees with plan. Time: 15:33 [facility] - Weakness Medical Records Attestation: I reviewed the patient's medical records. Lab Data Attestation: I reviewed the patient's lab results. Result diagrams: 03/09/21 14:26 03/09/21 14:26 Labs: Lab Results 03/09/21 03/09/21 Range/Units 14:26 14:26 WBC 3.1 L (4.8-10.8) X10*3/uL RBC 4.75 (4.20-5.50) X10*6/uL Hgb 14.8 (12.0-16.0) g/dl Hct 43.1 (37.0-47.0) % MCV 90.7 (80.0-98.0) fL MCH 31.2 (27.0-33.0) pg MCHC 34.3 (31.0-35.0) g/dl RDW 11.9 (11.0-16.0) % Plt Count 177 (160-400) X10*3/uL MPV 11.5 (9.4-12.3) fL Immature Gran % (Auto) 0.3 (0.0-0.4) % Neut % (Auto) 59.3 (45-73) % Lymph % (Auto) 25.5 (20-40) % Woodruff % (Auto) 14.3 H (2-11) % Eos % (Auto) 0.6 (0-4) % Baso % (Auto) 0.0 (0-2) % Lymph # (Auto) 0.8 L (1.2-4.9) X10*3/uL Woodruff # (Auto) 0.5 (0.1-1.2) X10*3/uL Eos # (Auto) 0.0 (0.0-0.4) X10*3/uL Baso # (Auto) 0.0 (0.0-0.2) X10*3/uL Abs Immat Gran (auto) 0.01 (0.00-0.03) X10*3/uL Absolute Neuts (auto) 1.9 L (2.0-8.3) x10*3/uL Absolute Nucleated RBC 0.000 (0.0-0.012) X10*3/uL Nucleated RBC % (auto) 0.0 (0.0-0.2) /100WBC Smear Tech's Comments VERIFIED Sodium 136 (135-145) mmol/L Potassium 3.3 (3.3-5.1) mmol/L Chloride 96 (96-108) mmol/L Carbon Dioxide 31 H (22-29) mmol/L Anion Gap 12 (12-20) BUN 13 (9-16) mg/dL Creatinine 0.87 (0.5-1.4) mg/dL Estim Creat Clear Calc 69.5 Estimated GFR > 60 Random Glucose 118 H (60-115) mg/dL Calcium 9.6 (8.4-10.2) mg/dL Discharge Plan Discharge Clinical Impression: COVID-19 Patient Disposition: Home, Self-Care Instructions: COVID-19 (Coronavirus Disease 2019) (ED) Additional Instructions: Please be sure to remain well hydrated, and eating small frequent meals while at home as we discussed. Please contact your primary care provider to schedule a follow-up visit in 1-3 days. In addition, please return to the emergency department with any new or worsening symptoms or concerns. Prescriptions: No Action hydrocodone-acetaminophen 5-325 mg tablet 1 tab PO Q4-6H PRN (Reason: pain) Qty: 5 0RF ondansetron 4 mg tablet,disintegrating 4 mg PO Q8H 4 Days Qty: 12 0RF omeprazole 20 mg capsule,delayed release(DR/EC) 20 mg PO DAILY 0RF hydrochlorothiazide 25 mg tablet 25 mg PO DAILY 0RF levothyroxine 100 mcg tablet 100 mcg PO DAILY 0RF metoprolol succinate 50 mg tablet extended release 24 hr 50 mg PO DAILY 0RF potassium chloride 10 mEq tablet extended release 10 meq PO DAILY 0RF cholecalciferol (vitamin D3) 10 mcg (400 unit) capsule 10 mcg PO DAILY 0RF Interventions: ED Discharge Assessment Last Done: 03/09/21 16:18
[2021-03-09] MEDS: 0.9 % Sodium Chloride 1,000 ML 999 ML IV (14:30)
[2021-03-09 14:32] VITALS: BP 145/91; PULSE 58; RESP 14; O2SAT 97
[2021-03-09 14:32] LABS: Eosinophils Percent Auto 0.6 % (0-4); Hematocrit 43.1 % (37.0-47.0); Hemoglobin 14.8 g/dl (12.0-16.0); Imm Gran Abs Auto 0.01 X10*3/uL (0.00-0.03); Imm Gran Pct Auto 0.3 % (0.0-0.4); Lymphocytes Absolute Auto 0.8 X10*3/uL (1.2-4.9); Lymphocytes Percent Auto 25.5 % (20-40); MANUAL DIFF FLAG SCAN; Mean Corpuscular HGB Conc 34.3 g/dl (31.0-35.0); Mean Corpuscular Hemoglobin 31.2 pg (27.0-33.0); Mean Corpuscular Volume 90.7 fL (80.0-98.0); Mean Platelet Volume 11.5 fL (9.4-12.3); Monocytes Absolute Auto 0.5 X10*3/uL (0.1-1.2); Monocytes Percent Auto 14.3 % (2-11); Neutrophils Absolute Auto 1.9 x10*3/uL (2.0-8.3); Neutrophils Percent Auto 59.3 % (45-73); Platelet Count 177 X10*3/uL (160-400); Red Blood Count 4.75 X10*6/uL (4.20-5.50); Red Cell Distribution Width 11.9 % (11.0-16.0); SCAN SMEAR FLAG 1; White Blood Count 3.1 X10*3/uL (4.8-10.8)
[2021-03-09 14:44] LABS: Anion Gap 12 (12-20); Blood Urea Nitrogen 13 mg/dL (9-16); Calcium 9.6 mg/dL (8.4-10.2); Carbon Dioxide 31 mmol/L (22-29); Chloride 96 mmol/L (96-108); Creatinine Clr Calc Pharmacy 69.5; Estimated Glomerular Filt Rate > 60; Glucose Random 118 mg/dL (60-115); Potassium 3.3 mmol/L (3.3-5.1); Sodium 136 mmol/L (135-145)
[2021-03-09 14:51] LABS: SLIDE REVIEW VERIFIED
== END 2021-03-09 16:23 | disposition home or self-care (01) ==
PROVIDERS: Nurse Practitioner Family; Emergency Provider Emergency Medicine Emergency Medical Services; PCP Internal Medicine
DX: U07.1 COVID-19 (principal); R42 Dizziness and giddiness; I10 Essential (primary) hypertension
CPT/HCPCS: 36415; 80048; 85025; 96360; 99282; 99284

== ENCOUNTER 2021-03-27 14:24 | Outpatient (REF) | payer OTHER, SELFPAY ==
[2021-03-27 14:27] LABS: MANUAL DIFF FLAG NO
[2021-03-27 14:32] LABS: Basophils Percent Auto 0.2 % (0-2); Eosinophils Absolute Auto 0.3 X10*3/uL (0.0-0.4); Eosinophils Percent Auto 5.2 % (0-4); Hematocrit 38.5 % (37.0-47.0); Hemoglobin 12.9 g/dl (12.0-16.0); Imm Gran Abs Auto 0.01 X10*3/uL (0.00-0.03); Imm Gran Pct Auto 0.2 % (0.0-0.4); Lymphocytes Percent Auto 33.6 % (20-40); Mean Corpuscular HGB Conc 33.5 g/dl (31.0-35.0); Mean Corpuscular Hemoglobin 31.5 pg (27.0-33.0); Mean Corpuscular Volume 93.9 fL (80.0-98.0); Mean Platelet Volume 13.5 fL (9.4-12.3); Monocytes Absolute Auto 0.7 X10*3/uL (0.1-1.2); Monocytes Percent Auto 11.7 % (2-11); Neutrophils Absolute Auto 2.9 x10*3/uL (2.0-8.3); Neutrophils Percent Auto 49.1 % (45-73); Platelet Count 226 X10*3/uL (160-400); Red Cell Distribution Width 12.6 % (11.0-16.0); White Blood Count 5.8 X10*3/uL (4.8-10.8)
== END 2021-03-27 14:25 | disposition home or self-care (01) ==
LOC: HO.LNP 14:24
PROVIDERS: PCP Internal Medicine; Visit Provider Internal Medicine
DX: D70.9 Neutropenia, unspecified (principal)
CPT/HCPCS: 85025

== ENCOUNTER 2021-04-21 16:19 | Outpatient (REF) | payer OTHER, SELFPAY ==
--- NOTE | ~2021-04-21 | MM_ITS ---
EXAMINATION: MM SCREENING DIGITAL BREAST TOMOSYNTHESIS, BILATERAL CLINICAL INFORMATION: Screening. Asymptomatic. The lifetime risk of breast cancer based on the Tyrer-Cuzick Model is 8%. COMPARISON: Mammography: 04/20/2020, 04/15/2019, 04/09/2018 TECHNIQUE: Digital breast tomosynthesis is performed in both the craniocaudal and mediolateral oblique views along with computer-aided detection (CAD). Synthesized 2D images are generated from the tomosynthesis. FINDINGS: There are scattered areas of fibroglandular density (ACR BI-RADS breast composition Category b). There are no significant masses, abnormal calcifications, or other abnormalities. Parenchymal pattern is similar to prior studies. There is no developing density or architectural abnormality. The axilla and skin contours are unremarkable. No significant changes. MM/MM tomosynthesis screening BI IMPRESSION: No mammographic evidence of malignancy. ASSESSMENT: BI-RADS 1: Negative RECOMMENDATION: Routine annual mammography screening. This patient's information was entered into a reminder system with a target due date for their next mammogram.
== END 2021-04-21 16:20 | disposition home or self-care (01) ==
LOC: HO.MAMMO 16:19
PROVIDERS: Visit Provider Internal Medicine
DX: Z12.31 Encounter for screening mammogram for malignant neoplasm of breast (principal)
CPT/HCPCS: 77063; 77067

== ENCOUNTER 2021-07-25 11:21 | Outpatient (REF) | payer OTHER, SELFPAY ==
[2021-07-25 11:29] LABS: MANUAL DIFF FLAG NO
[2021-07-25 12:04] LABS: Appearance Urine HAZY; Color Urine ORANGE; Glucose Urine UA NEG (NEG); Leukocyte Esterase Urine TRACE (NEG); Nitrite Urine NEG (NEG); Urine Blood NEG (NEG); Urine Ketones NEG (NEG); Urine Protein NEG (NEG-TRACE)
[2021-07-25 12:05] LABS: Basophils Percent Auto 0.3 % (0-2); Eosinophils Absolute Auto 0.4 X10*3/uL (0.0-0.4); Hematocrit 41.8 % (37.0-47.0); Hemoglobin 13.9 g/dl (12.0-16.0); Imm Gran Abs Auto 0.02 X10*3/uL (0.00-0.03); Imm Gran Pct Auto 0.3 % (0.0-0.4); Lymphocytes Absolute Auto 2.3 X10*3/uL (1.2-4.9); Lymphocytes Percent Auto 31.9 % (20-40); Mean Corpuscular HGB Conc 33.3 g/dl (31.0-35.0); Mean Corpuscular Hemoglobin 31.2 pg (27.0-33.0); Mean Corpuscular Volume 93.7 fL (80.0-98.0); Mean Platelet Volume 12.9 fL (9.4-12.3); Monocytes Absolute Auto 0.6 X10*3/uL (0.1-1.2); Monocytes Percent Auto 8.8 % (2-11); Neutrophils Absolute Auto 3.9 x10*3/uL (2.0-8.3); Neutrophils Percent Auto 53.7 % (45-73); Platelet Count 265 X10*3/uL (160-400); Red Blood Count 4.46 X10*6/uL (4.20-5.50); Red Cell Distribution Width 12.8 % (11.0-16.0); White Blood Count 7.2 X10*3/uL (4.8-10.8)
[2021-07-25 12:27] LABS: Creatinine Urine 88.41 mg/dL; Microalbum/Creatinine Ratio Ur 6.7 ug/mg cr
[2021-07-25 12:29] LABS: Alanine Aminotransferase 20 U/L (0-31); Albumin Level 4.2 g/dL (3.5-5.0); Alkaline Phosphatase 72 U/L (39-117); Anion Gap 15 (12-20); Aspartate Amino Transferase 14 U/L (5-31); Bilirubin Total 0.4 mg/dL (0.0-1.0); Blood Urea Nitrogen 17 mg/dL (9-16); Calcium 9.4 mg/dL (8.4-10.2); Carbon Dioxide 25 mmol/L (22-29); Chloride 104 mmol/L (96-108); Cholesterol 229 mg/dL; Estimated Glomerular Filt Rate > 60; Glucose Fasting 134 mg/dL (60-99); HDL Cholesterol 51 mg/dL; LDL Cholesterol Calculated 163 mg/dl; Potassium 3.7 mmol/L (3.3-5.1); Sodium 140 mmol/L (135-145); Total Protein 6.8 g/dL (6.5-8.0); Triglycerides 77 mg/dL
[2021-07-25 12:33] LABS: TSH reflex Free T4 0.39 uIU/mL (0.32-4.0); Vitamin D 25-OH Total 45.4 ng/mL (>30)
[2021-07-25 12:50] LABS: RBC Urine 0-2 /HPF (0); WBC Urine 0-2 /HPF (0-4)
[2021-07-25 13:08] LABS: Estimated Average Glucose 126 mg/dL
== END 2021-07-25 11:22 | disposition home or self-care (01) ==
LOC: HO.LNP 11:21
PROVIDERS: Visit Provider Internal Medicine
DX: E03.9 Hypothyroidism, unspecified (principal); R73.09 Other abnormal glucose; E78.00 Pure hypercholesterolemia, unspecified; E55.9 Vitamin D deficiency, unspecified; D70.9 Neutropenia, unspecified
CPT/HCPCS: 80053; 80061; 81001; 82043; 82306; 83036; 84443; 85025

== ENCOUNTER 2021-10-24 06:41 | Emergency (ER) | payer OTHER, SELFPAY ==
[2021-10-24 06:48] VITALS: BP 150/86; PULSE 73; RESP 18; TEMP 36.6; O2SAT 98; BMI 29.5
--- NOTE | 2021-10-24 06:54 | PC.NURSE ---
Dave Patel MD to bedside to administer Oxymetazoline nasal spray to pt. and clamp nose for 15 minutes. Bleeding is under control at this time. Plan to potentially cauterize the blood vessels in nose.
[2021-10-24 06:55] VITALS: BP 150/86; PULSE 80; RESP 18; TEMP 36.6; O2SAT 97
--- NOTE | 2021-10-24 06:56 | ED_ITS ---
History of Present Illness General Chief Complaint: Epistaxis Stated Complaint: nose bleed for 2x hours Time Seen by Provider: 10/24/21 06:55 Source: patient Mode of arrival: ambulatory Limitations: no limitations History of Present Illness Location: Yes left naris Onset/current episode: Yes hour(s) (2) Duration: Yes constant Pertinent past history: Yes hypertension and Yes history of previous nose bleed Context: Yes history of previous nose bleed Treatment prior to arrival: Yes stuff nose with tissue Related Data Home Medications Medication Instructions Recorded Confirmed cholecalciferol (vitamin D3) 10 10 mcg PO DAILY 05/10/20 mcg (400 unit) capsule hydrochlorothiazide 25 mg tablet 25 mg PO DAILY 05/10/20 levothyroxine 100 mcg tablet 100 mcg PO DAILY 05/10/20 metoprolol succinate 50 mg 50 mg PO DAILY 05/10/20 tablet,extended release 24 hr omeprazole 20 mg capsule,delayed 20 mg PO DAILY 05/10/20 release potassium chloride 10 mEq 10 meq PO DAILY 05/10/20 tablet,extended release Previous Rx's Medication Instructions Recorded hydrocodone 5 mg-acetaminophen 325 1 tab PO Q4-6H PRN pain #5 tabs 10/25/20 mg tablet ondansetron 4 mg disintegrating 4 mg PO Q8H 4 days #12 tabs 03/06/21 tablet Allergies Allergy/AdvReac Type Severity Reaction Status Date / Time amoxicillin [AMOXICILLIN] Allergy Severe HIVES/RASH, Verified 01/10/21 11:53 rash/hives ibuprofen Allergy Severe rash Verified 01/10/21 11:53 Sulfa (Sulfonamide Allergy Severe HIVES/RASH, Verified 01/10/21 11:53 Antibiotics) rash/hives [SULFA(SULFONAMIDE ANTIBIOTICS)] codeine [CODEINE] Allergy Mild VOMITING Verified 01/10/21 11:53 hydrocodone AdvReac Vomiting Verified 01/10/21 11:53 Review of Systems Review of Systems: Constitutional : No Fever, No Chills ENT/Mouth : No Ear Pain, No Nasal Congestion, positive nose bleed Eyes: No Eye Pain, No Swelling, No Redness Cardiovascular : No Chest Pain, No SOB Respiratory : No Cough, No Sputum Gastrointestinal : No Nausea, No Vomiting, No Diarrhea Genitourinary : No Dysuria, No Hematuria Musculoskeletal : No joint pain, No Myalgias Skin : No Skin Lesions, No rash Neuro : No Weakness, No Numbness, No headache Psych : No Anxiety/Panic, No Depression Heme/Lymph: positive Bleeding,No Lymphadenopathy All other systems reviewed and are negative [facility] Past Medical History Medical History HTN (hypertension) Hypothyroid Surgical History H/O endoscopy Family History Family History Mother No problems noted. Father No problems noted. 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 Oriented X3. Anxious mild acute distress. Eyes: Pupils equal, round and reactive to light. ENT: Pharynx normal. L nares packed with tissue slight bright ooze noted not brisk, blood noted no clots down throat scant Neck: Normal inspection. Neck supple. CVS: Normal heart rate and rhythm. Pulses normal. Respiratory: No respiratory distress. Breath sounds normal. Abdomen: Soft and nontender. Skin: Skin warm and dry. Normal skin color. Normal skin turgor. Extremities: No lower extremity edema. No calf ttp Neuro: Oriented X 3. No motor deficit. No sensory deficit. Course Course Course Narrative: nose bleed has stopped stable for DC MDM - Epistaxis MDM Narrative Medical decision making narrative: 61 yo female with hx of HTN, hypothyroidism, not on ASA or blood thinners comes in with c/o L sided nose bleed. Has had on and off bleeds this month but never this bad. At this time will try local measures and attempt to cauterize the area . Dispo per results and control. Procedures Epistaxis Control Time Out Performed: Yes Nostril: Yes left Nose prepped with: Yes oxymetazoline Direct inspection: Yes anterior source identified Direct inspection method: Yes nasal speculum Clots removed by: Yes manually Epistaxis treatment: Yes TXA soaked gauze and Yes silver nitrate cautery Results of treatment: Yes bleeding controlled and Yes treatment well tolerated Complications: Yes none Discharge Plan Discharge Clinical Impression: Epistaxis Patient Disposition: Home, Self-Care Instructions: Nosebleed (ED) Additional Instructions: return to ED for any worsening symptoms or concerns no nose blowing for 3 days please use moisturizing saline nasal spray twice a day for the next 7 days (over the counter) no aspirin products for 3 days Prescriptions: No Action hydrocodone-acetaminophen 5-325 mg tablet 1 tab PO Q4-6H PRN (Reason: pain) Qty: 5 0RF ondansetron 4 mg tablet,disintegrating 4 mg PO Q8H 4 Days Qty: 12 0RF omeprazole 20 mg capsule,delayed release(DR/EC) 20 mg PO DAILY hydrochlorothiazide 25 mg tablet 25 mg PO DAILY levothyroxine 100 mcg tablet 100 mcg PO DAILY metoprolol succinate 50 mg tablet extended release 24 hr 50 mg PO DAILY potassium chloride 10 mEq tablet extended release 10 meq PO DAILY cholecalciferol (vitamin D3) 10 mcg (400 unit) capsule 10 mcg PO DAILY Stand Alone Forms: Work/School Release
[2021-10-24] MEDS: Silver Nitrate Applicator STICK..EA. 1 APPL TOPICAL (07:18)
[2021-10-24] MEDS: Tranexamic Acid 1,000 MG/10 ML VIAL 500 MG INTRANASAL (07:18)
== END 2021-10-24 08:03 | disposition home or self-care (01) ==
PROVIDERS: Emergency Provider Emergency Medicine; PCP Internal Medicine
DX: R04.0 Epistaxis (principal); I10 Essential (primary) hypertension; Z87.891 Personal history of nicotine dependence; Z79.899 Other long term (current) drug therapy
CPT/HCPCS: 30901; 99284

== ENCOUNTER 2021-10-29 17:43 | Emergency (ER) | payer OTHER, SELFPAY ==
[2021-10-29 17:45] VITALS: BP 144/76; PULSE 80; RESP 18; TEMP 36.5; O2SAT 97; BMI 29.5
== END 2021-10-29 22:04 | disposition left against medical advice (07) ==
PROVIDERS: Emergency Provider Emergency Medicine; PCP Internal Medicine
DX: R04.0 Epistaxis (principal)
CPT/HCPCS: 99281

== ENCOUNTER 2022-02-06 08:35 | Outpatient (REF) | payer OTHER, SELFPAY ==
--- NOTE | ~2022-02-06 | CT_ITS ---
EXAMINATION: CT MAXILLOFACIAL WITHOUT CONTRAST CLINICAL INFORMATION: Polyp of nasal cavity. Episodic tension-type headaches. COMPARISON: None. TECHNIQUE: Multidetector helical imaging was performed in the axial plane with generation of coronal and sagittal reformatted images. This CT examination was performed using dose optimization techniques as appropriate, variously including the following: *Automated exposure control *Adjustment of mA and/or kV according to patient size (this includes techniques or standardized protocols for targeted exams where dose is matched to indication/reason for exam; i.e. extremities or head) *Use of iterative reconstruction technique DLP: 79 mGy-cm. FINDINGS: The frontal sinuses are clear. The ethmoid air cells are clear. The left sphenoid sinus is clear. A small polypoid opacity is seen within the right inferior sphenoid sinus with opacification of the sphenoethmoidal recess. There is a small mucosal retention cyst along the left maxillary sinus floor. Maxillary sinuses are otherwise clear. The bilateral ethmoidal infundibula are clear. The nasal septum is deviated towards the left anteriorly and towards the right posteriorly. No fluid levels are seen. The ethmoid roofs are symmetric. The lamina papyracea are intact. The carotid impressions are covered with thin bone. No maxillary periapical disease is seen. The mastoid air cells and visualized middle ear cavities are well aerated. The orbits are normal. The TMJs are unremarkable. The imaged portions of the brain demonstrate no acute abnormality. CT/CT sinus wo IV con IMPRESSION: Small polypoid opacity in the right inferior sphenoid sinus with opacification of the sphenoethmoidal recess. Small mucosal retention cyst along the left maxillary sinus floor. Paranasal sinuses are otherwise clear without fluid levels. Nasal septum deviated towards the left anteriorly and towards the right posteriorly.
== END 2022-02-06 08:36 | disposition home or self-care (01) ==
LOC: HO.CT 08:35
PROVIDERS: Visit Provider Internal Medicine
DX: J33.0 Polyp of nasal cavity (principal); G44.219 Episodic tension-type headache, not intractable
CPT/HCPCS: 70486

== ENCOUNTER 2022-05-03 15:38 | Outpatient (REF) | payer OTHER, SELFPAY ==
--- NOTE | ~2022-05-03 | MM_ITS ---
EXAMINATION: MM SCREENING DIGITAL BREAST TOMOSYNTHESIS, BILATERAL CLINICAL INFORMATION: Screening. Asymptomatic. The lifetime risk of breast cancer based on the Tyrer-Cuzick Model is 8.2%. COMPARISON: Mammography: April 21, 2021 and studies dating back to January 26, 2015 TECHNIQUE: Digital breast tomosynthesis is performed in both the craniocaudal and mediolateral oblique views along with computer-aided detection (CAD). Synthesized 2D images are generated from the tomosynthesis. FINDINGS: The breasts are heterogeneously dense, which may obscure small masses (ACR BI-RADS breast composition Category c). There are no new significant masses, abnormal calcifications, or other abnormalities. MM/MM tomosynthesis screening BI IMPRESSION: No significant changes ASSESSMENT: BI-RADS 1: Negative RECOMMENDATION: Routine annual mammography screening. This patient's information was entered into a reminder system with a target due date for their next mammogram.
== END 2022-05-03 15:39 | disposition home or self-care (01) ==
LOC: HO.MAMMO 15:38
PROVIDERS: PCP Internal Medicine; Visit Provider Internal Medicine
DX: Z12.31 Encounter for screening mammogram for malignant neoplasm of breast (principal)
CPT/HCPCS: 77063; 77067

== ENCOUNTER 2022-10-26 11:01 | Outpatient (REF) | payer OTHER, SELFPAY ==
[2022-10-26 11:06] LABS: MANUAL DIFF FLAG NO
[2022-10-26 12:44] LABS: Appearance Urine Clear; Color Urine Yellow; Glucose Urine UA Negative (Negative); Leukocyte Esterase Urine Small (1+) (Negative); Nitrite Urine Negative (Negative); Specific Gravity - Urine 1.015 (1.005-1.025); UMIC TRIGGER UACC YES; Urine Blood Negative (Negative); Urine Ketones Negative (Negative); Urine Protein Negative (Neg-Trace)
[2022-10-26 12:56] LABS: Basophils Percent Auto 0.4 % (0-2); Eosinophils Absolute Auto 0.5 X10*3/uL (0.0-0.4); Eosinophils Percent Auto 7.3 % (0-4); Hematocrit 40.4 % (37.0-47.0); Hemoglobin 13.4 g/dl (12.0-16.0); Imm Gran Abs Auto 0.02 X10*3/uL (0.00-0.03); Imm Gran Pct Auto 0.3 % (0.0-0.4); Lymphocytes Absolute Auto 2.5 X10*3/uL (1.2-4.9); Lymphocytes Percent Auto 36.2 % (20-40); Mean Corpuscular HGB Conc 33.2 g/dl (31.0-35.0); Mean Corpuscular Hemoglobin 31.5 pg (27.0-33.0); Mean Corpuscular Volume 94.8 fL (80.0-98.0); Mean Platelet Volume 13.3 fL (9.4-12.3); Monocytes Absolute Auto 0.8 X10*3/uL (0.1-1.2); Monocytes Percent Auto 11.4 % (2-11); Neutrophils Absolute Auto 3.1 x10*3/uL (2.0-8.3); Neutrophils Percent Auto 44.4 % (45-73); Platelet Count 215 X10*3/uL (160-400); Red Blood Count 4.26 X10*6/uL (4.20-5.50); White Blood Count 6.9 X10*3/uL (4.8-10.8)
[2022-10-26 12:58] LABS: Bacteria Urine None Seen (None Seen); Hyaline Casts Urine 0-2 /LPF (0-2); RBC Urine 0-2 /HPF (0-2); Squamous Epithelial Cell Urine 0-2 /HPF (0-2); UACC Culture Trigger YES; WBC Urine 0-5 /HPF (0-5)
[2022-10-26 14:25] LABS: Alanine Aminotransferase 27 U/L (0-31); Albumin Level 4.1 g/dL (3.5-5.0); Alkaline Phosphatase 58 U/L (39-117); Anion Gap 13 (12-20); Aspartate Amino Transferase 19 U/L (5-31); Bilirubin Total 0.6 mg/dL (0.0-1.0); Blood Urea Nitrogen 13 mg/dL (9-16); Calcium 9.5 mg/dL (8.4-10.2); Carbon Dioxide 28 mmol/L (22-29); Chloride 105 mmol/L (96-108); Cholesterol 202 mg/dL (<200); Estimated Glomerular Filt Rate > 60; Glucose Fasting 134 mg/dL (60-99); HDL Cholesterol 50 mg/dL (>40); LDL Cholesterol Calculated 137 mg/dL (<100); Potassium 3.5 mmol/L (3.3-5.1); Sodium 142 mmol/L (135-145); Total Protein 6.8 g/dL (6.5-8.0); Triglycerides 77 mg/dL (<150); Vitamin D 25-OH Total 59.7 ng/mL (>30)
[2022-10-26 15:04] LABS: Estimated Average Glucose 123 mg/dL; Hemoglobin A1c % 5.9 % (<6.0)
[2022-10-26 15:20] LABS: Creatinine Urine 145.12 mg/dL; Microalbum/Creatinine Ratio Ur 5.5 ug/mg cr (<30)
== END 2022-10-26 11:02 | disposition home or self-care (01) ==
LOC: HO.LNP 11:01
PROVIDERS: Visit Provider Internal Medicine
DX: Z00.00 Encounter for general adult medical examination without abnormal findings (principal); E03.9 Hypothyroidism, unspecified; R73.03 Prediabetes; E78.00 Pure hypercholesterolemia, unspecified; E55.9 Vitamin D deficiency, unspecified; D70.9 Neutropenia, unspecified
CPT/HCPCS: 80053; 80061; 81001; 82043; 82306; 82570; 83036; 85025; 87086

== ENCOUNTER 2022-11-02 11:36 | Outpatient (REF) | payer OTHER, SELFPAY ==
[2022-11-02 14:16] LABS: Free T4 (Free Thyroxine) 1.04 ng/dL (0.71-1.85)
== END 2022-11-02 11:37 | disposition home or self-care (01) ==
LOC: HO.LNP 11:36
PROVIDERS: Visit Provider Internal Medicine
DX: E03.9 Hypothyroidism, unspecified (principal)
CPT/HCPCS: 84439; 84443

== ENCOUNTER 2023-01-31 13:26 | Outpatient (REF) | payer OTHER, SELFPAY ==
[2023-01-31 14:14] LABS: TSH reflex Free T4 0.39 uIU/mL (0.32-4.0)
== END 2023-01-31 13:27 | disposition home or self-care (01) ==
LOC: HO.LNP 13:26
PROVIDERS: Visit Provider Internal Medicine
DX: E03.9 Hypothyroidism, unspecified (principal)
CPT/HCPCS: 84443

== ENCOUNTER 2023-05-09 15:47 | Outpatient (REF) | payer OTHER, SELFPAY | END 2023-05-09 15:48 | disposition home or self-care (01) | LOC: HO.MAMMO 15:47 | PROVIDERS: PCP Internal Medicine; Visit Provider Internal Medicine | DX: Z12.31 Encounter for screening mammogram for malignant neoplasm of breast (principal) | CPT/HCPCS: 77063; 77067 ==

== ENCOUNTER → 2023-05-09 16:00 | Outpatient (BNV) | payer OTHER, SELFPAY | PROVIDERS: PCP Internal Medicine; Visit Provider Radiology Diagnostic Radiology | DX: Z12.31 Encounter for screening mammogram for malignant neoplasm of breast (principal) | CPT/HCPCS: 77063; 77067 ==

== ENCOUNTER 2023-07-20 09:36 | Emergency (ER) | payer OTHER, SELFPAY ==
--- NOTE | ~2023-07-20 | XR_ITS ---
EXAMINATION: XR CHEST CLINICAL INFORMATION: Dizzy COMPARISON: Chest radiograph from 03/06/2021 TECHNIQUE: Frontal view of the chest was obtained. FINDINGS: No focal consolidation. No pneumothorax. Trachea is midline. Cardiac mediastinal silhouette is not enlarged. Aorta demonstrates atherosclerotic calcifications. No large pleural effusion. Osseous structures are intact. Soft tissues are unremarkable. XR/XR chest 1V IMPRESSION: No acute cardiopulmonary process.
--- NOTE | 2023-07-20 09:47 | ED_ITS ---
HPI - General Adult General Chief complaint: Weakness Stated complaint: FEELS OFF Time Seen by Provider: 07/20/23 09:47 History of Present Illness HPI narrative: The patient is a 63-year-old female. 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 She says that when she woke up this morning at around 05:00 she felt normal. 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 While at work she started to feel as if something was not quite right. She felt lightheaded and weak. 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 She then felt worse again. Her blood pressure was checked and it seemed somewhat high. They called an ambulance and she was brought to the hospital. At no point did she have any chest pain or abdominal pain. At no point did she have any shortness of breath. No headache. No visual symptoms. No room spinning. No lateralizing weakness. No difficulty speaking. No fever, sweats, chills. Related Data Home Medications ?Medication ?Instructions ?Recorded ?Confirmed cholecalciferol (vitamin D3) 10 10 mcg PO DAILY 05/10/20 mcg (400 unit) capsule hydrochlorothiazide 25 mg tablet 25 mg PO DAILY 05/10/20 levothyroxine 100 mcg tablet 100 mcg PO DAILY 05/10/20 metoprolol succinate 50 mg 50 mg PO DAILY 05/10/20 tablet,extended release 24 hr omeprazole 20 mg capsule,delayed 20 mg PO DAILY 05/10/20 release potassium chloride 10 mEq 10 meq PO DAILY 05/10/20 tablet,extended release Previous Rx's ?Medication ?Instructions ?Recorded hydrocodone 5 mg-acetaminophen 325 1 tab PO Q4-6H PRN pain #5 tabs 10/25/20 mg tablet ondansetron 4 mg disintegrating 4 mg PO Q8H 4 days #12 tabs 03/06/21 tablet Allergies Allergy/AdvReac Type Severity Reaction Status Date / Time amoxicillin [AMOXICILLIN] Allergy Severe HIVES/RASH, Verified 07/20/23 09:49 rash/hives ibuprofen Allergy Severe rash Verified 07/20/23 09:49 Sulfa (Sulfonamide Allergy Severe HIVES/RASH, Verified 07/20/23 09:49 Antibiotics) rash/hives [SULFA(SULFONAMIDE ANTIBIOTICS)] codeine [CODEINE] Allergy Mild VOMITING Verified 07/20/23 09:49 hydrocodone AdvReac Vomiting Verified 07/20/23 09:49 Review of Systems 2 Review of Systems: Yes all other systems are reviewed and are negative [facility] Past Medical History Medical History HTN (hypertension) Hypothyroid Surgical History H/O endoscopy Family History Family History Mother No problems noted. Father No problems noted. 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 She does not appear in any distress. She does not appear ill. HENMT Other: Face is symmetrical. Mucous membranes moist. Face is unremarkable. Eyes Other: Pupils are round equal, conjunctivae are clear, extraocular movements intact Neck Other: No JVD, neck is supple Resp Effort & Inspection: normal respiratory effort Auscultation: clear to auscultation bilaterally Cardio Rate: regular rate Rhythm: regular rhythm Heart sounds: S1 normal heart sound present and S2 normal heart sound present GI Other: Abdomen is soft and nontender Skin Other: Skin is dry and unremarkable Neuro Other: The patient is awake and alert with a normal mental status. Face is symmetrical. Speech is clear. Eye movements are normal. Strength is symmetrical. No pronator drift. Gait is normal. The patient is neurologically intact. Extrem Other: No swelling or tenderness, no asymmetry, no edema Medications Administered Discontinued Medications Generic Name Dose Route Start Last Admin Trade Name Temitope PRN Reason Stop Dose Admin Sodium Chloride 1,000 mls @ 999 mls/hr 07/20/23 11:45 07/20/23 12:06 Ns IV 07/20/23 12:45 999 mls/hr .Q1H1M ALEXX Administration Medical Decision Making Medical Decision Making [facility] Narrative: The patient presents with a very nonspecific complaint of weakness and lightheadedness that occurred while she was at work. When she is at work she is at a factory assembling defibrillator pads. She sits at a station with a lot of moving parts. She felt unwell follow up doing her work with the moving parts. There was no associated headache. No associated chest pain. No associated shortness of breath. No associated abdominal pain. No associated nausea or vomiting. There was no lateralizing weakness. There was no speech deficit. No facial asymmetry. The patient has an unremarkable, essentially normal EKG. She has no associated chest pain or shortness of breath or other anginal equivalents. She has no stroke findings on exam. Her complaint of feeling lightheaded and simply not quite right is very nonspecific. She was observed and given IV fluids. She had no recurrence of her symptoms. She was ambulatory without difficulty. I did not see an indication for a 2nd troponin (1st troponin undetectable). I think she may be discharged to follow up with the regular doctor or should return to the ER if she feels worse. Lab Data 07/20/23 10:06 07/20/23 10:06 Labs: Lab Results 07/20/23 07/20/23 Range/Units 10:06 12:38 WBC 7.2 (4.8-10.8) X10*3/uL RBC 4.43 (4.20-5.50) X10*6/uL Hgb 14.1 (12.0-16.0) g/dl Hct 41.0 (37.0-47.0) % MCV 92.6 (80.0-98.0) fL MCH 31.8 (27.0-33.0) pg MCHC 34.4 (31.0-35.0) g/dl RDW 12.8 (11.0-16.0) % Plt Count 218 (160-400) X10*3/uL MPV 12.6 H (9.4-12.3) fL Immature Gran % (Auto) 0.3 (0.0-0.4) % Neut % (Auto) 55.3 (45-73) % Lymph % (Auto) 28.9 (20-40) % [place] % (Auto) 9.6 (2-11) % Eos % (Auto) 5.6 H (0-4) % Baso % (Auto) 0.3 (0-2) % Lymph # (Auto) 2.1 (1.2-4.9) X10*3/uL [place] # (Auto) 0.7 (0.1-1.2) X10*3/uL Eos # (Auto) 0.4 (0.0-0.4) X10*3/uL Baso # (Auto) 0.0 (0.0-0.2) X10*3/uL Abs Immat Gran (auto) 0.02 (0.00-0.03) X10*3/uL Absolute Neuts (auto) 4.0 (2.0-8.3) x10*3/uL Absolute Nucleated RBC 0.000 (0.0-0.012) X10*3/uL Nucleated RBC % (auto) 0.0 (0.0-0.2) /100WBC Sodium 141 (135-145) mmol/L Potassium 3.7 (3.3-5.1) mmol/L Chloride 105 (96-108) mmol/L Carbon Dioxide 27 (22-29) mmol/L Anion Gap 13 (12-20) BUN 18 H (9-16) mg/dL Creatinine 0.86 (0.5-1.4) mg/dL Estim Creat Clear Calc 72.8 Estimated GFR > 60 Random Glucose 117 H (60-115) mg/dL Calcium 9.5 (8.4-10.2) mg/dL Total Bilirubin 0.3 (0.0-1.0) mg/dL AST 17 (5-31) U/L ALT 21 (0-31) U/L Alkaline Phosphatase 70 (39-117) U/L Troponin I High Sens < 2.7 (<3.5-17.0) ng/L Total Protein 7.1 (6.5-8.0) g/dL Albumin 4.3 (3.5-5.0) g/dL Urine Color Yellow Urine Appearance Clear Urine pH 7.0 (5.0-9.0) Ur Specific [place] 1.010 (1.005-1.025) Urine Protein Negative (Neg-Trace) mg/dL Urine Glucose (UA) Negative (Negative) mg/dL Urine Ketones Negative (Negative) mg/dL Urine Blood Negative (Negative) Urine Nitrite Negative (Negative) Ur Leukocyte Esterase Negative (Negative) Independent Interpretation I performed an independent interpretation of an: EKG Interpretation: EKG at 10:23 shows normal sinus rhythm at 61 beats per minute. No acute changes. No significant change from previous. Unremarkable EKG. Discharge Plan Discharge Clinical Impression: Light-headedness Patient Disposition: Home, Self-Care Additional Instructions: Your EKG and blood testing today seems very reassuring. I do not have a good explanation for the symptoms you experienced earlier today. Please rest and take it easy. Continue your regular medications. Contact your regular doctor on Saturday morning for a follow up appointment to discuss this episode further. Since it is not clear what might have been causing your symptoms today I would recommended returning to the emergency room if you feel significantly worse again. Prescriptions: No Action hydrocodone-acetaminophen 5-325 mg tablet 1 tab PO Q4-6H PRN (Reason: pain) Qty: 5 0RF ondansetron 4 mg tablet,disintegrating 4 mg PO Q8H 4 Days Qty: 12 0RF omeprazole 20 mg capsule,delayed release(DR/EC) 20 mg PO DAILY hydrochlorothiazide 25 mg tablet 25 mg PO DAILY levothyroxine 100 mcg tablet 100 mcg PO DAILY metoprolol succinate 50 mg tablet extended release 24 hr 50 mg PO DAILY potassium chloride 10 mEq tablet extended release 10 meq PO DAILY cholecalciferol (vitamin D3) 10 mcg (400 unit) capsule 10 mcg PO DAILY Interventions: ED Discharge Assessment Last Done: 07/20/23 13:47 Discharge Date/Time: 07/20/23 13:48 Print Language: Grenadian
[2023-07-20 09:49] VITALS: BP 157/78; BP 187/78; PULSE 60; PULSE 71; RESP 18; TEMP 36.7; O2SAT 98; O2SAT 99; BMI 32.5
--- NOTE | 2023-07-20 09:55 | ECG_ITS ---
Test Reason : DIZZY Blood Pressure : / mmHG Vent. Rate : 061 BPM Atrial Rate : 061 BPM P-R Int : 144 ms QRS Dur : 068 ms QT Int : 450 ms P-R-T Axes : 065 016 068 degrees QTc Int : 453 ms Normal sinus rhythm Normal ECG When compared with ECG of 13-JAN-2018 08:46, No significant change was found Referred By: Chance Ramirez Electronically Signed By:BERNARDO ESCALERA MD
[2023-07-20 10:11] LABS: MANUAL DIFF FLAG NO
[2023-07-20 10:12] LABS: Basophils Percent Auto 0.3 % (0-2); Eosinophils Absolute Auto 0.4 X10*3/uL (0.0-0.4); Eosinophils Percent Auto 5.6 % (0-4); Hemoglobin 14.1 g/dl (12.0-16.0); Imm Gran Abs Auto 0.02 X10*3/uL (0.00-0.03); Imm Gran Pct Auto 0.3 % (0.0-0.4); Lymphocytes Absolute Auto 2.1 X10*3/uL (1.2-4.9); Lymphocytes Percent Auto 28.9 % (20-40); Mean Corpuscular HGB Conc 34.4 g/dl (31.0-35.0); Mean Corpuscular Hemoglobin 31.8 pg (27.0-33.0); Mean Corpuscular Volume 92.6 fL (80.0-98.0); Mean Platelet Volume 12.6 fL (9.4-12.3); Monocytes Absolute Auto 0.7 X10*3/uL (0.1-1.2); Monocytes Percent Auto 9.6 % (2-11); Neutrophils Percent Auto 55.3 % (45-73); Platelet Count 218 X10*3/uL (160-400); Red Blood Count 4.43 X10*6/uL (4.20-5.50); Red Cell Distribution Width 12.8 % (11.0-16.0); White Blood Count 7.2 X10*3/uL (4.8-10.8)
--- NOTE | 2023-07-20 10:25 | PC.NURSE ---
coming in for two episodes of lightheaded and feeling off . states she was at work about to take her morning medications when this occurred. now feels as if this has resolved. IV established by EMS, resting quietly in room. awaiting results of xray and labs a this time.
[2023-07-20 10:28] LABS: Alanine Aminotransferase 21 U/L (0-31); Albumin Level 4.3 g/dL (3.5-5.0); Alkaline Phosphatase 70 U/L (39-117); Anion Gap 13 (12-20); Aspartate Amino Transferase 17 U/L (5-31); Bilirubin Total 0.3 mg/dL (0.0-1.0); Blood Urea Nitrogen 18 mg/dL (9-16); Calcium 9.5 mg/dL (8.4-10.2); Carbon Dioxide 27 mmol/L (22-29); Chloride 105 mmol/L (96-108); Creatinine Clr Calc Pharmacy 72.8; Estimated Glomerular Filt Rate > 60; Glucose Random 117 mg/dL (60-115); Potassium 3.7 mmol/L (3.3-5.1); Sodium 141 mmol/L (135-145); Total Protein 7.1 g/dL (6.5-8.0)
[2023-07-20] MEDS: 0.9 % Sodium Chloride 1,000 ML 999 ML IV (12:06)
[2023-07-20 12:34] VITALS: BP 145/56; PULSE 61; RESP 14; TEMP 36.1; O2SAT 96
[2023-07-20 12:47] LABS: Appearance Urine Clear; Color Urine Yellow; Glucose Urine UA Negative (Negative); Leukocyte Esterase Urine Negative (Negative); Nitrite Urine Negative (Negative); Urine Blood Negative (Negative); Urine Ketones Negative (Negative); Urine Protein Negative (Neg-Trace)
[2023-07-20 13:47] VITALS: BP 141/57; PULSE 60; RESP 16; TEMP 36.5; O2SAT 99
[2023-07-20 15:21] LABS: Troponin-I High Sensitivity < 2.7 ng/L (<3.5-17.0)
[2023-07-20 17:59] LABS: Thyroid Stimulating Hormone 0.52 uIU/mL (0.32-4.0)
== END 2023-07-20 13:48 | disposition home or self-care (01) ==
PROVIDERS: Emergency Provider Emergency Medicine; PCP Internal Medicine
DX: R42 Dizziness and giddiness (principal); I10 Essential (primary) hypertension; Z87.891 Personal history of nicotine dependence; Z79.899 Other long term (current) drug therapy
CPT/HCPCS: 36415; 71045; 80053; 81003; 84443; 84484; 85025; 93005; 96360; 99284; 99285

== ENCOUNTER → 2023-07-20 09:55 | Outpatient (BNV) | payer OTHER, SELFPAY | PROVIDERS: Emergency Provider Emergency Medicine; PCP Internal Medicine; Visit Provider Internal Medicine Cardiovascular Disease | DX: R42 Dizziness and giddiness (principal) | CPT/HCPCS: 93010 ==

== ENCOUNTER 2023-11-04 11:11 | Outpatient (REF) | payer OTHER, SELFPAY ==
[2023-11-04 11:20] LABS: MANUAL DIFF FLAG NO
[2023-11-04 11:54] LABS: Basophils Percent Auto 0.3 % (0-2); Eosinophils Absolute Auto 0.5 X10*3/uL (0.0-0.4); Eosinophils Percent Auto 6.1 % (0-4); Hematocrit 39.6 % (37.0-47.0); Hemoglobin 13.3 g/dl (12.0-16.0); Imm Gran Abs Auto 0.02 X10*3/uL (0.00-0.03); Imm Gran Pct Auto 0.3 % (0.0-0.4); Lymphocytes Absolute Auto 2.3 X10*3/uL (1.2-4.9); Lymphocytes Percent Auto 30.9 % (20-40); Mean Corpuscular HGB Conc 33.6 g/dl (31.0-35.0); Mean Corpuscular Volume 95.2 fL (80.0-98.0); Mean Platelet Volume 13.1 fL (9.4-12.3); Monocytes Absolute Auto 0.8 X10*3/uL (0.1-1.2); Monocytes Percent Auto 11.4 % (2-11); Neutrophils Absolute Auto 3.8 x10*3/uL (2.0-8.3); Platelet Count 243 X10*3/uL (160-400); Red Blood Count 4.16 X10*6/uL (4.20-5.50); Red Cell Distribution Width 13.2 % (11.0-16.0); White Blood Count 7.4 X10*3/uL (4.8-10.8)
[2023-11-04 11:59] LABS: Appearance Urine Clear; Color Urine Yellow; Glucose Urine UA Negative (Negative); Leukocyte Esterase Urine Negative (Negative); Nitrite Urine Negative (Negative); Specific Gravity - Urine 1.025 (1.005-1.025); Urine Blood Negative (Negative); Urine Ketones Negative (Negative); Urine Protein Negative (Neg-Trace)
[2023-11-04 12:06] LABS: Bacteria Urine None Seen (None Seen); Hyaline Casts Urine 0-2 /LPF (0-2); RBC Urine 0-2 /HPF (0-2); Squamous Epithelial Cell Urine 0-2 /HPF (0-2); WBC Urine 0-5 /HPF (0-5)
[2023-11-04 12:17] LABS: Alanine Aminotransferase 25 U/L (0-31); Albumin Level 4.2 g/dL (3.5-5.0); Alkaline Phosphatase 61 U/L (39-117); Anion Gap 14 (12-20); Aspartate Amino Transferase 16 U/L (5-31); Bilirubin Total 0.6 mg/dL (0.0-1.0); Blood Urea Nitrogen 17 mg/dL (9-16); Calcium 9.7 mg/dL (8.4-10.2); Carbon Dioxide 28 mmol/L (22-29); Chloride 105 mmol/L (96-108); Cholesterol 179 mg/dL (<200); Estimated Glomerular Filt Rate > 60; Glucose Fasting 131 mg/dL (60-99); HDL Cholesterol 48 mg/dL (>40); LDL Cholesterol Calculated 115 mg/dL (<100); Potassium 3.7 mmol/L (3.3-5.1); Sodium 143 mmol/L (135-145); Triglycerides 82 mg/dL (<150)
[2023-11-04 12:24] LABS: TSH reflex Free T4 0.35 uIU/mL (0.32-4.0); Vitamin D 25-OH Total 66.1 ng/mL (>30)
== END 2023-11-04 11:12 | disposition home or self-care (01) ==
LOC: HO.LNP 11:11
PROVIDERS: Visit Provider Internal Medicine
DX: Z00.00 Encounter for general adult medical examination without abnormal findings (principal); E03.9 Hypothyroidism, unspecified; I10 Essential (primary) hypertension; E78.00 Pure hypercholesterolemia, unspecified; E55.9 Vitamin D deficiency, unspecified; D70.9 Neutropenia, unspecified
CPT/HCPCS: 80053; 80061; 81001; 82306; 84443; 85025

== ENCOUNTER 2024-03-04 11:15 | Outpatient (REF) | payer BC, SELFPAY ==
--- NOTE | ~2024-03-04 | XR_ITS ---
EXAMINATION: Lumbar spine 4 views. CLINICAL INDICATION: Low back pain. No injury. COMPARISON: None. FINDINGS: There is mild levoscoliosis. Lumbar lordosis is maintained. There is grade 1 anterolisthesis L4-L5. Rest of the vertebral alignment is normal. There is loss of L4-5 and L5-S1 disc heights with mild ventral spondylosis from L3-4 through L5-S1 disc levels. No visible acute fracture, lytic or sclerotic process seen. SI joints are symmetrical and normal. No pars defect on oblique views. The paravertebral soft tissues are normal. XR/XR lumbar spine 4V min IMPRESSION: Mild levoscoliosis with grade 1 anterolisthesis L4 over L5. No aggressive lytic or sclerotic process seen. No visible acute fracture or dislocation seen. Electronically signed by: Tolu Dyer MD 03/04/2024 12:09 PM [facility]
--- OUTSIDE RECORDS SUMMARY | 2024-03-04 12:58 | XMS_ITS ---
Author Organization Armond Lopez MD Address [address] [facility] [address] [place] [phone] Care Team Providers Care Coordinator Of Rehabilitation Services Name Role Phone Armond Lopez Primary Care Provider [phone] REASON FOR VISIT [facility] Encounters Encounter Location Date Provider Diagnosis Armond Lopez MD [address] [place] [address] [place] [phone] 02/24/2024 Armond Lopez PLAN OF TREATMENT Next Appt Details Provider Name:Armond cheung, 03/06/2024 02:15:00 PM, [address] [place] [address], [address], [phone], Provider Name:Armond cheung, 05/11/2024 03:15:00 PM, [address] [place] [address], [address], [phone], Provider Name:Armond cheung, 11/10/2024 07:00:00 AM, [address] [place] [address], [address], [phone], Provider Name:Armond cheung, 11/16/2024 03:30:00 PM, [address] [place] [address], [phone],
--- OUTSIDE RECORDS SUMMARY | 2024-03-04 12:59 | XMS_ITS ---
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 Name Role Phone Armond Lopez Primary Care Provider ALLERGIES Allergen (clinical drug ingredient) Drug/Non Drug Allergy documented on EMR Reaction Allergy Type Onset Date Status ibuprofen Ibuprofen hives Drug Allergy Active amoxicillin amoxicillin (uncoded) not hives but an amoxicillin allergy Allergy Active codeine codeine (uncoded) nauseau Allergy Ac tive Substance with sulfonamide structure and antibacterial mechanism of action (substance) sulfa (uncoded) hives Allergy Active REASON FOR VISIT Sciatica 1 week 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, Patient would like to refill Dexamethasone MEDICATIONS Medication SIG (Take, Route, Frequency, Duration) Notes Start Date End Date Status hydroCHLOROthiazide 25 MG TAKE 1 TABLET EVERY MORNING for 90 Active ProAir RespiClick 108 (90 Base) MCG/ACT 2 puffs as needed Inhalation every 6 hrs for 30 days 01/21/2018 Not-Taking Benadryl Allergy 25 MG 1 tablet as neede d Orally three times a day Not-Taking Levothyroxine Sodium 100 MCG TAKE 1 TABL ET BY MOUTH EVERY MORNING ON EMPTY STOMACH Active dexAMETHasone 4 MG 1 tablet Orally 3 times a day for 7 days 02/14/2024 Active Potassium Chloride ER 10 MEQ TAKE 1 TABL ET BY MOUTH EVERY DAY WITH FOOD for 90 Active Vitamin D 50 MCG (1999 UT) 1 capsule Ora lly Once a day 07/20/2019 Active Metoprolol Succinate ER 50 MG TAKE 1 TABLET DAILY Active Diprolene AF 0.05 % 1 application to affected area Externally Once a day for 30 days 05/30/2017 Active Omeprazole 20 MG TAKE ONE CAPSULE EVERY 12 HOURS( 1 OF THE DOSES AT BEDTIME ) Oral for 30 Active VITAL SIGNS BMI 31.41 kg/m2 02/21/2024 Blood pressure systolic 152 mm Hg 02/20/19 25 Blood pressure diastolic 90 mm Hg 025 Height 64 in 02/21/2024 Weight 183 lbs 02/21/2024 Encounters Encounter Location Date Provider Diagnosis Armond Lopez MD [address] [place] [phone] 02/21/2024 Armond Lopez Sciatica of left side M54.32 ASSESSMENTS Encounter Date Diagnosis Assessment Notes Treatment Notes Treatment Clinical Notes 02/21/2024 Sciatica of left side (ICD-10 - M54.32) PLAN OF TREATMENT Medication Medication Name Sig Start Date Stop Date Notes dexAMETHasone 4 MG 1 tablet Orally 3 ti mes a day for 7 days 02/14/2024 Next Appt Details Provider Name:Armond cheung, 03/06/2024 02:15:00 PM, [address] [place] [address], [phone], Provider Name:Armond cheung, 05/11/2024 03:15:00 PM, [address] [place] [address], [phone], Provider Name:Armond cheung, 11/10/2024 07:00:00 AM, [address] [place] [address], [phone], Provider Name:Armond cheung, 11/16/2024 03:30:00 PM, [address] [place] [address], [phone], Progress Notes * Examination Category Sub-Category Detail Notes General Examination GENERAL APPEARANCE: well dev eloped, well nourished having trouble moving around NEUROLOGIC: hyper reactive dtr's on left and positve str leg raising.. no weakness
--- OUTSIDE RECORDS SUMMARY | 2024-03-04 12:59 | XMS_ITS ---
Author Organization Armond Lopez MD Address [address] [place], [place] [phone] Care Team Providers Care Project Director Name Role Phone Armond Lopez Primary Care [...] sulfa (uncoded) hives Allergy Active REASON FOR REFERRAL Reason SCIATICA OF LEFT MABEL E Diagnosis 1 Sciatica of left mabel e (M54.32) Referral Organization Armond Lopez MD Referring Provider First Name Armond Referring Provider Last Name Jessica Referring Provider Speciality Internal M edicine Referred Provider [facility] Referred Provider Specialty Pain Medicin e General Notes Ivet Odom 0 02/24/2024 09:36:09 AM >appt is in the [facility] office, patient is aware of appt Referral Priority Routine Referral Appointment Date 03/04/2024 REASON FOR VISIT Sciatica MEDICATIONS Medication SIG (Take, Route, Frequency, Duration) Notes Start Date End Date Status hydroCHLOROthiazide 25 MG TAKE 1 TABLET EVERY MORNING for 90 Active Levothyroxine Sodium 100 MCG TAKE 1 TABL ET BY MOUTH EVERY MORNING ON EMPTY STOMACH Active Vitamin D 50 MCG (1999 UT) 1 capsule Ora lly Once a day 07/20/2019 Active dexAMETHasone 4 MG 1 tablet Orally 3 times a day for 7 days 02/14/2024 Active Metoprolol Succinate ER 50 MG TAKE 1 TABLET DAILY Active Diprolene AF 0.05 % 1 application to affected area Externally Once a day for 30 days 05/30/2017 Active Omeprazole 20 MG TAKE ONE CAPSULE EVERY 12 HOURS( 1 OF THE DOSES AT BEDTIME ) Oral for 30 Active Benadryl Allergy 25 MG 1 tablet as neede d Orally three times a day Not-Taking ProAir RespiClick 108 (90 Base) MCG/ACT 2 puffs as needed Inhalation every 6 hrs for 30 days 01/21/2018 Not-Taking Potassium Chloride ER 10 MEQ TAKE 1 TABL ET BY MOUTH EVERY DAY WITH FOOD for 90 Active PROBLEMS Problem Type ICD Code Onset Dates Problem Status W/U Status Risk SNOMED Code Notes Problem Sciatica of left side (M54.32) Active confirmed [id number] VITAL SIGNS BMI 31.58 kg/m2 02/14/2024 Blood pressure systolic 122 mm Hg 02/13/19 25 Blood pressure diastolic 74 mm Hg 025 Height 64 in 02/14/2024 Weight 184 lbs 02/14/2024 weight is up 3 pounds since 11-11-23 Encounters Encounter Location Date Provider Diagnosis Armond Lopez MD [address] [place] [address] [address] [place], [place] [phone] 02/14/2024 Armond Lopez Sciatica of left side M54.32 ASSESSMENTS Encounter Date Diagnosis Assessment Notes Treatment Notes Treatment Clinical Notes 02/14/2024 Sciatica of left side (ICD-10 - M54.32) is intolerant of nsaids/ [facility], patient verbalized understanding of medication and directions for use 02/14/2024 Other THE REFERRAL CAMPO S BEEN FAXED TO [facility] PLAN OF TREATMENT Medication Medication Name Sig Start Date Stop Date Notes dexAMETHasone 4 MG 1 tablet Orally 3 ti mes a day for 7 days 02/14/2024 Treatment Notes Assessment Notes Sciatica of left side is intolerant of n saids/ referral [facility], patient verbalized understanding of medication and directions for use Other THE REFERRAL HAS BEE N FAXED TO [facility] Referrals Referral Date Details 03/04/2024 03/04/2024, SCIATICA OF LEFT SIDE , [facility] Next Appt Details Follow Up: 1 Week, Reason: Provider Name:Armond Shelley ier, 03/06/2024 02:15:00 PM, [address], [address], [place], [phone], Provider Name:Armond Shelley ier, 05/11/2024 03:15:00 PM, [address], [address], [place], [place], [phone], Provider Name:Armond Shelley ier, 11/10/2024 07:00:00 AM, [address], [address], [place], [place], [phone], Provider Name:Armond Shelley ier, 11/16/2024 03:30:00 PM, [address], [address], [place], [place], [phone], Progress Notes * Examination Category Sub-Category Detail Notes General Examination GENERAL APPEARANCE: well dev eloped, well nourished HEAD: normocephalic NEUROLOGIC: dtr's are equal in k nee juerk and normal strength dorsiflexion is normal. straight leg raising is normal SKIN: good turgor Consultation Request Notes Referral Date Referring Provider Referred Provider Not celeste 02/17/2024 Armond Lopez, [facility] SCIATICA OF LEFT SIDE
== END 2024-03-04 11:16 | disposition home or self-care (01) ==
LOC: HO.XRAY 11:15
PROVIDERS: PCP Internal Medicine; Visit Provider Physician Assistant
DX: M54.16 Radiculopathy, lumbar region (principal)
CPT/HCPCS: 72110

== ENCOUNTER → 2024-03-04 11:35 | Outpatient (BNV) | payer BC, SELFPAY | PROVIDERS: PCP Internal Medicine; Visit Provider Radiology Diagnostic Radiology | DX: M54.50 Low back pain, unspecified (principal) | CPT/HCPCS: 72110 ==

== ENCOUNTER 2024-05-11 15:47 | Outpatient (REF) | payer BC, SELFPAY ==
--- OUTSIDE RECORDS SUMMARY | 2024-05-11 17:41 | XMS_ITS ---
Author Organization Armond Lopez MD Address [address] [place], [place] [address] Care Team Providers Care Printing Machine Mechanic Name Role Phone Armond Lopez Primary Care Provider [phone] Allergies Allergen (clinical drug ingredient) Drug/Non Drug Allergy documented on EMR Reaction Allergy Type Onset Date Status ibuprofen Ibuprofen hives Drug Allergy Active amoxicillin amoxicillin (uncoded) not hives but an amoxicillin allergy Allergy Active codeine codeine (uncoded) nauseau Allergy Ac tive Substance with sulfonamide structure and antibacterial mechanism of action (substance) sulfa (uncoded) hives Allergy Active REASON FOR VISIT 4 week Medications Medication SIG (Take, Route, Frequency, Duration) Notes Start Date End Date Status Potassium Chloride ER 10 MEQ TAKE 1 TABL ET BY MOUTH EVERY DAY WITH FOOD for 90 Active Vitamin D 50 MCG (1999) 1 capsule Ora lly Once a day 07/20/2019 Active Omeprazole 20 MG TAKE ONE CAPSULE EVERY 12 HOURS( 1 OF THE DOSES AT BEDTIME ) Oral for 30 Active Diprolene AF 0.05 % 1 application to affected area Externally Once a day for 30 days 05/30/2017 Active Benadryl Allergy 25 MG 1 tablet as neede d Orally three times a day Not-Taking Levothyroxine Sodium 100 MCG TAKE 1 TABL ET BY MOUTH EVERY DAY IN THE MORNING ON EMPTY STOMACH for 90 Active dexAMETHasone 4 MG 1 tablet Orally 3 times a day for 7 days 02/14/2024 Not-Taking Metoprolol Succinate ER 50 MG TAKE 1 TABLET DAILY Active hydroCHLOROthiazide 25 MG TAKE 1 TABLET EVERY MORNING for 90 Active ProAir RespiClick 108 (90 Base) MCG/ACT 2 puffs as needed Inhalation every 6 hrs for 30 days 01/21/2018 Not-Taking Vital Signs Blood pressure systolic 132 mm Hg 04/06/19 25 Blood pressure diastolic 80 mm Hg 025 Height 64 in 04/06/2024 Weight 190 lbs 04/06/2024 BMI 32.61 kg/m2 04/06/2024 weight is up 5 pounds since Encounters Encounter Location Date Provider Diagnosis Armond Lopez MD [address] [place] [phone] 04/06/2024 Armond Lopez Sciatica of left side M54.32 Assessments Encounter Date Diagnosis (ICD Code) Assessment Notes Treatment Notes Treatment Clinical Notes Section Notes 04/06/2024 Sciatica of left side (ICD-10 - M54.32) was given gabapentin and was afraid to take it. hopefully will be injected next week/ clearly not able to work at this time and will need to be out at least another week Plan Of Treatment Treatment Notes Assessment Notes Sciatica of left side was given gabapent in and was afraid to take it. hopefully will be injected next week/ clearly not able to work at this time and will need to be out at least another week Next Appt Details Follow Up: 4 Weeks, Reason: Provider Name:Armond cheung, 11/10/2024 07:00:00 AM, [address] [place] [address], [place] [address], [place], [place], [phone], Provider Name:Armond cheung, 11/16/2024 03:30:00 PM, [address] [place] [address], [place] [address], [place], [place], [phone], Progress Notes * Davonte ROGERSOB:1960 ( 63 yo F)Acc No.[id number]:04/06/2024 Progress Notes Patient:?SUELea GUILLAUME Provider:?Armond Lopez MD :1960???Age:63 Y???Sex:Female D ate:04/06/2024 Address:[address] [place] [address] , [address], [id number] Subjective: * Chief Complaints: * ???4 week * HPI: ???Symptom(s):?patient is a 63 yo female here for 4 week follow up visit, going to therapy. not getting any better.. getting worse. pain moves around leg. foot flop not occurring. having meeting with physciatrist next week. * ROS:?General/Constitutional:?Denies?Chills.?Denies?Fatigue.?Denies?Fever.?Denies?Headache.?ENT:?Patient denies?decreased sense of smell, any loss of taste, sore throat.?Denies?Sore throat.?Respiratory:?Denies?Cough.?Denies?Shortness of breath at rest.?Denies?Shortness of breath with exertion.?Gastrointestinal:?Denies?Diarrhea.?Denies?Nausea.?Musculoskeletal:?Patient denies?muscle aches.?Peripheral Vascular:?Patient denies?red and blue toes.? * Medical History:? * Surgical History:? * Hospitalization/Major Diagno stic Procedure:? * Medications:?TakingOmeprazol e 20 MG Capsule Delayed Release TAKE ONE CAPSULE EVERY 12 HOURS( 1 OF THE DOSES AT BEDTIME ) Oral Diprolene AF 0.05 % Cream 1 application to affected area Externally Once a day Potassium Chloride ER 10 MEQ Tablet Extended Release TAKE 1 TABLET BY MOUTH EVERY DAY WITH FOOD Vitamin D 50 MCG (1999 UT) Capsule 1 capsule Orally Once a day Metoprolol Succinate ER 50 MG Tablet Extended Release 24 Hour TAKE 1 TABLET DAILY hydroCHLOROthiazide 25 MG Tablet TAKE 1 TABLET EVERY MORNING Levothyroxine Sodium 100 MCG Tablet TAKE 1 TABLET BY MOUTH EVERY DAY IN THE MORNING ON EMPTY STOMACH Taking Omeprazole 20 MG Capsule Delayed Release TAKE ONE CAPSULE EVERY 12 HOURS( 1 OF THE DOSES AT BEDTIME ) Oral Taking Diprolene AF 0.05 % Cream 1 application to affected area Externally Once a day Taking Potassium Chloride ER 10 MEQ Tablet Extended Release TAKE 1 TABLET BY MOUTH EVERY DAY WITH FOOD Taking Vitamin D 50 MCG (2000 UT) Capsule 1 capsule Orally Once a day Taking Metoprolol Succinate ER 50 MG Tablet Extended Release 24 Hour TAKE 1 TABLET DAILY Taking hydroCHLOROthiazide 25 MG Tablet TAKE 1 TABLET EVERY MORNING Taking Levothyroxine Sodium 100 MCG Tablet TAKE 1 TABLET BY MOUTH EVERY DAY IN THE MORNING ON EMPTY STOMACH Not-Taking/PRNdexAMETHasone 4 MG Tablet 1 tablet Orally 3 times a day ProAir RespiClick 108 (90 Base) MCG/ACT Aerosol Powder Breath Activated 2 puffs as needed Inhalation every 6 hrs Benadryl Allergy 25 MG Tablet 1 tablet as needed Orally three times a day Medication List reviewed and reconciled with the patientNot- Taking/PRN dexAMETHasone 4 MG Tablet 1 tablet Orally 3 times a day Not-Taking/PRN ProAir RespiClick 108 (90 Base) MCG/ACT Aerosol Powder Breath Activated 2 puffs as needed Inhalation every 6 hrs Not-Taking/PRN Benadryl Allergy 25 MG Tablet 1 tablet as needed Orally three times a day Medication List reviewed and reconciled with the patient * Allergies:?sulfa: hivescodei ne: nauseauamoxicillin: not hives but an amoxicillin allergyIbuprofen: hivesyes[Allergies Verified] Objective: * Vitals:?Ht: 64, Wt: 190, BMI :32.61, BP:132/80, Wt-k.18. weight is up 5 pounds since. * Examination: ???General Examination: ?GENERAL APPEARANCE:?alert, well hydrated, in no distress.?SKIN:?good turgor.?NEUROLOGIC:?abnormal with normal dtr's in legs and no weakness on dorsiflexion. has 1/6 strength on extension of leg. has positive str leg raising at 30degrees.? Assessment: * Assessment: 1.?Sciatica of left side - M 54.32 (Primary)??? Plan: * Treatment: * Procedure Codes:? * Follow Up:?4 Weeks * * Sign off status: Completed true * Provider:?Armond Lopez MD Date:?0 04/06/2024 Generated for Umm east/Butch/Vidyaitting on:?05/11/2024 05:40 PM EDT History and Physical Notes * HPI (History of Present Illness) Category Sub-Category Detail Notes Category Not es Symptom(s) patient is a 63 yo female here for 4 week follow up visit, going to therapy. not getting any better.. getting worse. pain moves around leg. foot flop not occurring. having meeting with physciatrist next week. Examination Category Sub-Category Detail Notes Category Not es General Examination GENERAL APPEARANCE: alert, w ell hydrated, in no distress NEUROLOGIC: abnormal with normal dtr's in legs and no weakness on dorsiflexion. has 1/6 strength on extension of leg. has positive str leg raising at 30degrees SKIN: good turgor
--- OUTSIDE RECORDS SUMMARY | 2024-05-11 17:41 | XMS_ITS ---
Author Organization Armond Lopez MD Address [address] [place], [place] [id number] Care Team Providers Care Small Machine Bindery Operator Name Role Phone Armond Lopez Primary Care Provider [phone] Allergies Allergen (clinical drug ingredient) Drug/Non Drug Allergy documented on EMR Reaction Allergy Type Onset Date Status ibuprofen Ibuprofen hives Drug Allergy Active amoxicillin amoxicillin (uncoded) not hives but an amoxicillin allergy Allergy Active codeine codeine (uncoded) nauseau Allergy Ac tive Substance with sulfonamide structure and antibacterial mechanism of action (substance) sulfa (uncoded) hives Allergy Active REASON FOR VISIT 6 MO F/U Audio [phone], c/o productive cough, runny congestion x 3 days did not test for Covid Medications Medication SIG (Take, Route, Frequency, Duration) Notes Start Date End Date Status hydroCHLOROthiazide 25 MG TAKE 1 TABLET EVERY MORNING for 90 Active Levothyroxine Sodium 100 MCG TAKE 1 TABL ET BY MOUTH EVERY DAY IN THE MORNING ON EMPTY STOMACH for 90 Active Vitamin D 50 MCG [...] d Orally three times a day Not-Taking Gabapentin 100 MG 2 caps at HS Orally Once a day Active dexAMETHasone 4 MG 1 tablet Orally 3 times a day for 7 days 02/14/2024 Not-Taking ProAir RespiClick 108 (90 Base) MCG/ACT 2 puffs as needed Inhalation every 6 hrs for 30 days 01/21/2018 Not-Taking Potassium Chloride ER 10 MEQ TAKE 1 TABL ET BY MOUTH EVERY DAY WITH FOOD for 90 Active Encounters Encounter Location Date Provider Diagnosis Armond Lopez MD [address] [place] [phone] 05/08/2024 Armond Lopez Lumbar disc disease with radiculopathy M51.16 and URI (upper respiratory infection) J06.9 Assessments Encounter Date Diagnosis (ICD Code) Assessment Notes Treatment Notes Treatment Clinical Notes Section Notes 05/08/2024 Lumbar disc disease with radiculopathy (ICD-10 - M51.16) need results of mri at [facility] 05/08/2024 URI (upper respiratory infection) (ICD-10 - J06.9) sounds like she has a cold. no need for any treatment 05/08/2024 Other RESULTS REQUESTED FOR MED RECORDS @ [facility] Plan Of Treatment Treatment Notes Assessment Notes Lumbar disc disease with radiculopathy n eed results of mri at [facility] URI (upper respiratory infection) sounds like she has a cold. no need for any treatment Other RESULTS REQUESTED FO R MED RECORDS @ [facility] Next Appt Details Follow Up: 6 Weeks, Reason: Provider Name:Armond cheung, 11/10/2024 07:00:00 AM, [address] [place] [address], [address], [phone], Provider Name:Armond cheung, 11/16/2024 03:30:00 PM, [address] [place] [address], [address], [phone], Progress Notes * Davonte ROGERSOB:1960 ( 63 yo F)Acc No.[id number]:05/08/2024 Patient:?Lea ROGERS Provider:?Armond Lopez MD :1960???Age:63 Y???Sex:Female D ate:05/08/2024 Address:[address] [place] [address] , [address], [id number] Subjective: * Chief Complaints: * ???1. 6 MO F/U Audio [phone]. 2. c/o productive cough, runny congestion x 3 days did not test for Covid. * HPI: ???Symptom(s):?Telehealth?Location of provider rendering services:?[address], [address],?Location of patient:?at address listed in demographics for today's visit,?Patient identification confirmed using:?Name, ,?Telehealth method:?Telephone only. Patient not visible to care provider.,?Consent:?Patient verbally consented to treatment, Patient verbally consented to billing insurance company, Patient informed of any privacy concerns related to method of visit,?Total time spend talking with patient (minutes)?18.?patient is a 63 yo female here for 6 month audio telehealth visit,? follow up visit/ has a cold and not very sick. back not doing well. made appt for injection. going to be end of may. still out of work. using heating pad and taking gabapentin. mostly pain in leg. * ROS:?General/Constitutional:?Denies?Chills.?Denies?Fatigue.?Denies?Fever.?Denies?Headache.?ENT:?Denies?Sore throat.?Respiratory:?Admits?Cough.?Denies?Shortness of breath at rest.?Denies?Shortness of breath with exertion.?Admits?Sputum production.?Gastrointestinal:?Denies?Diarrhea.?Denies?Nausea.? * Medical History:?03/31/2013 - Discussed colonoscopy and pap smear is going to do them 2015 and 2018 discussed again, 03/07/2018 - Colonoscopy by Dr. Peguero repeat due 02/2023, 03/07/2018 - Endo by Dr. Peguero, Can take aspirin. * Medications:?Taking Gabapent in 100 MG Capsule 2 caps at HS Orally Once a day , Taking Omeprazole 20 MG Capsule Delayed Release TAKE ONE CAPSULE EVERY 12 HOURS( 1 OF THE DOSES AT BEDTIME ) Oral , Taking Diprolene AF 0.05 % Cream 1 application to affected area Externally Once a day , Taking Vitamin D 50 MCG (2000 UT) Capsule 1 capsule Orally Once a day , Taking Metoprolol Succinate ER 50 MG Tablet Extended Release 24 Hour TAKE 1 TABLET DAILY , Taking hydroCHLOROthiazide 25 MG Tablet TAKE 1 TABLET EVERY MORNING , Taking Levothyroxine Sodium 100 MCG Tablet TAKE 1 TABLET BY MOUTH EVERY DAY IN THE MORNING ON EMPTY STOMACH , Taking Potassium Chloride ER 10 MEQ Tablet Extended Release TAKE 1 TABLET BY MOUTH EVERY DAY WITH FOOD , Not- Taking/PRN dexAMETHasone 4 MG Tablet 1 tablet Orally 3 times a day , Not-Taking/PRN ProAir RespiClick 108 (90 Base) MCG/ACT Aerosol Powder Breath Activated 2 puffs as needed Inhalation every 6 hrs , Not-Taking/PRN Benadryl Allergy 25 MG Tablet 1 tablet as needed Orally three times a day , Medication List reviewed and reconciled with the patient * Allergies:?sulfa: hives, cod eine: nauseau, amoxicillin: not hives but an amoxicillin allergy, Ibuprofen: hives. Objective: * Vitals:? Assessment: * Assessment: 1.?Lumbar disc disease with radiculopathy - M51.16???2.?URI (upper respiratory infection) - J06.9??? Plan: * Treatment: 2.?URI (upper respiratory in fection)? Notes: sounds like she has a cold. no need for any treatment?? 3.?Others? Notes: RESULTS REQUESTED FOR MED RECORDS @ [facility]?? * Follow Up:?6 Weeks * * The named appointment provid er may or may not be the originator of this progress note, and it is not deemed complete until electronically signed by the appointment provider. Sign off status: Pending * Provider:?Armond Lopez MD Date:?0 05/08/2024 Generated for Umm east/Butch/Alysha on:?05/11/2024 05:40 PM EDT History and Physical Notes * HPI (History of Present Illness) Category Sub-Category Detail Notes Category Not es Symptom(s) Telehealth [facility] ider rendering services:: [address], [address] patient is a 63 yo female here for 6 month audio telehealth visit, follow up visit/ has a cold and not very sick. back not doing well. made appt for injection. going to be end of may. still out of work. using heating pad and taking gabapentin. mostly pain in leg. Location of patient:: at address listed in demographics for today's visit Patient identification confirmed using:: Name, Telehealth method:: Telephone only. Nazia ent not visible to care provider. Consent:: Patient verbally c onsented to treatment, Patient verbally consented to billing insurance company, Patient informed of any privacy concerns related to method of visit Total time spend talking with patient (m inutes): 18
--- OUTSIDE RECORDS SUMMARY | 2024-05-11 17:41 | XMS_ITS ---
Author Organization Armond Lopez MD Address [address] [place] [phone] Care Team Providers Care Press Clippings Cutter And Paster Name Role Phone Armond Lopez Primary Care Provider [phone] REASON FOR VISIT RF Potassium Medications Medication SIG (Take, Route, Frequency, Duration) Notes Start Date End Date Status Potassium Chloride ER 10 MEQ TAKE 1 TABLET BY MOUTH EVERY DAY WITH FOOD for 90 Activ e Encounters Encounter Location Date Provider Diagnosis Armond Lopez MD [address] [facility] [address] [place] [phone] 04/16/2024 Armond Lopez Plan Of Treatment Medication Medication Name Sig Start Date Stop Date Notes Potassium Chloride ER 10 MEQ TAKE 1 TABL ET BY MOUTH EVERY DAY WITH FOOD for 90 Next Appt Details Provider Name:Armond cheung, 11/10/2024 07:00:00 AM, [address] [facility], [address] [place] [address], [phone], Provider Name:Armond cheung, 11/16/2024 03:30:00 PM, [address] [place] [address], [address] [place] [address], [phone], Progress Notes * Yohannes ROGERS:1960 ( 63 yo F)Acc No.[id number]:04/16/2024 Patient:?Lea ROGERS :1960???Age:63 Y???Sex:Female Address:[address] [place] [address] , [address], [place] [address] * Refills? Refill Potassium Chloride ER Tablet Extended Release, 10 MEQ, 90 Tablet, TAKE 1 TABLET BY MOUTH EVERY DAY WITH FOOD, 90, Refills=4 * true * Date:? Generated for Umm east/Butch/eTransmitting on:?05/11/2024 05:40 PM EDT
== END 2024-05-11 15:48 | disposition home or self-care (01) ==
LOC: HO.MAMMO 15:47
PROVIDERS: PCP Internal Medicine; Visit Provider Internal Medicine
DX: Z12.31 Encounter for screening mammogram for malignant neoplasm of breast (principal)
CPT/HCPCS: 77063; 77067

== ENCOUNTER → 2024-05-11 16:00 | Outpatient (BNV) | payer BC, SELFPAY | PROVIDERS: PCP Internal Medicine; Visit Provider Internal Medicine | DX: Z12.31 Encounter for screening mammogram for malignant neoplasm of breast (principal) | CPT/HCPCS: 77063; 77067 ==

== ENCOUNTER 2024-06-10 09:46 | Outpatient (REF) | payer BC, SELFPAY ==
--- NOTE | ~2024-06-10 | US_ITS ---
EXAMINATION: MM DIAGNOSTIC DIGITAL BREAST TOMOSYNTHESIS, RIGHT Right limited ultrasound. CLINICAL INFORMATION: Call back from screening for asymmetry in the low axillary upper outer right breast. COMPARISON: Mammography: [facility] on PACS. TECHNIQUE: Digital breast tomosynthesis is performed in both the craniocaudal and mediolateral oblique views along with computer-aided detection (CAD). Synthesized 2D images are generated from the tomosynthesis. FINDINGS: There are scattered areas of fibroglandular density (ACR BI-RADS breast composition Category b). Oval mass in the low axillary region appears as a probable normal-appearing intramammary lymph node. There are no significant masses, abnormal calcifications, or other abnormalities. Targeted color Doppler ultrasound scanning in the upper outer breast from 8-12 o'clock demonstrates a normal-appearing intramammary lymph node at 10:00 10 cm from the nipple which correlates with the mammographic asymmetry and is benign. US/US breast RT limited mamm only IMPRESSION: Normal low axillary upper outer quadrant intramammary lymph node. Benign. ASSESSMENT: BI-RADS BI-RADS 2 - Benign Findings RECOMMENDATION: 1 year F/U Results were provided to the patient at time of visit by the technologist. This patient's information was entered into a reminder system with a target due date for their next mammogram. Electronically signed by: Roula Urena DO 06/10/2024 12:37 PM EDT
== END 2024-06-10 09:47 | disposition home or self-care (01) ==
LOC: HO.MAMMO 09:46
PROVIDERS: PCP Internal Medicine; Visit Provider Internal Medicine
DX: N64.89 Other specified disorders of breast (principal)
CPT/HCPCS: 76642; 77061; 77065

== ENCOUNTER → 2024-06-10 10:00 | Outpatient (BNV) | payer BC, SELFPAY | PROVIDERS: PCP Internal Medicine; Visit Provider Internal Medicine | DX: R92.8 Other abnormal and inconclusive findings on diagnostic imaging of breast (principal) | CPT/HCPCS: 76642; 77061; 77065 ==

== ENCOUNTER 2024-06-22 09:58 | Outpatient (AMB) | payer BC, SELFPAY ==
[2024-06-22 10:12] VITALS: BMI 32.6
--- NOTE | 2024-06-22 10:12 | HO.SPINEOV ---
Vital Signs 06/22/24 10:12 Height 5 ft 4 in Weight 190 lb BMI 32.6 Intake Visit Reasons: LBP Intake Note: Ms. Rogers is here today c/o low back pain. Silver Buffer Required: No Allergies amoxicillin [AMOXICILLIN] Allergy (Severe, Verified 07/20/23 09:49) HIVES/RASH, rash/hives ibuprofen Allergy (Severe, Verified 06/22/24 10:12) rash Sulfa (Sulfonamide Antibiotics) [SULFA(SULFONAMIDE ANTIBIOTICS)] Allergy (Severe, Verified 06/22/24 10:12) HIVES/RASH, rash/hives codeine [CODEINE] Allergy (Mild, Verified 07/20/23 09:49) VOMITING hydrocodone Adverse Reaction (Verified 06/22/24 10:12) Vomiting Physical Exam Vital Signs: BMI result Body Mass Index 32.6 Assessment & Plan Assessment & Plan (1) Lumbar radiculopathy: Code(s): M54.16 - Radiculopathy, lumbar region Category: Medical Plan Dear KENA Melendez, Thank you for referring Lea to our office today. She is a pleasant 64-year-old female who comes in today with a chief complaint of low back pain and shooting pains into her left lower extremity. She states that this began without inciting incident around of 2023. She reports that her pain 1st began as left leg pain, then eventually began to include severe low back pain about 1-2 months after the leg pain began. When describing her leg pain she runs her hand across her low back down her left posterior buttocks over the left lateral thigh across the top of the left knee and down the anterior tibialis terminating near the inside of her left foot. She reports some weakness of her left lower extremity and feels she can not engage full strength on this side. She reports numbness / tingling /burning which accompany the pain. She states that her severity varies in pain throughout the day, but usually is about an 8-9/10. She reports that her pain is now to the point where it wakes her up throughout the night. She has to sleep in her recliner she can not tolerate lying flat in bed to try and sleep. 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 She has tried to utilize a plethora of qfmo-joj-wxdvken medications including Tylenol and NSAIDs to help mitigate the pain. She is currently taking tramadol daily to help relieve some of the pain. She has attempted physical therapy but states that it only caused her additional pain. She reports she has a history of previous cortisone injections with our colleagues at [email or web address]. she had a left-sided L5 transforaminal epidural steroid injections and reported complete relief for pain for 2 days after the injection. Unfortunately her pain subsequently returned. PMH: Hypothyroidism, vitamin-D deficiency, high blood pressure, GERD. Social hx: The patient does not smoke, reports no substance use. Medications: see [employer] list, no blood thinners or pulmonary medications. Allergies: amoxicillin, ibuprofen, sulfa, codeine, hydrocodone. Physical exam: The patient has 4/5 strength with left-sided plantar flexion, knee flexion, and knee extension, and iliopsoas testing. Her left-sided dorsiflexion and EHL is 5/5. The rest of her strength is 5/5 in the upper and lower extremities. She ambulates with a notably antalgic gait favoring the right hand side. She needs to brace herself on the chair and the examination table in order to get up. She reports diffuse hypoesthesia over the left lower extremity compared to the right. Her reflexes remain 2+ intact. (+) Left-sided straight leg raise. (-) Snider's, (-) clonus. Imaging review: MRI of the lumbar spine completed at [facility] 04/20/24 shows a grade 1 spondylolisthesis of L4-5 with significant disc degeneration and severe bilateral foraminal stenosis. There is also a notable disc bulge at L4-5 which does appear to be contacting the foramen and causing some degree of central canal effacement superior to the endplate at L4. Impression: Lea is a pleasant 64-year-old female who comes in today with a chief complaint of low back pain and shooting pain to her left lower extremity. The pain she describes in her left lower extremity is in a fairly classic left-sided L4 dermatomal distribution. Her imaging shows a posterior disc bulge at L4-5, likely contributing to her severe left leg pain. There is also a notable spondylolisthesis at L4-5. In cases such as Lea's, typically we try to treat our patient's symptomatically. One train of thought would be to address her disc herniation only, and attempt a microlumbar diskectomy at L4-5, however the data shows that attempting decompression at the level of the listhesis significantly increases re-operation rate, and leads to poor patient reported outcome measures postoperatively. Therefore, I am more inclined to consider recommending minimally invasive lumbar fusion at L4-5. We extensively discussed both possibilities during this encounter today. I would like to send the patient for a set of dynamic lumbar spine x-rays to ensure that her listhesis is not worsening with movement. I will review her case with Dr. Peterson later this week and call her with a updated surgical recommendation. Thank you for allowing us to care for your patient. The total time spent with this visit with this patient was 45 minutes reviewing history, physical exam, mri imaging review, and implementation of treatment plan or further diagnostic testing Dorian Peterson MD,PhD [facility] Orders: Orders XR lumbar spine 4V min Today M54.16 - Radiculopathy, lumbar region Coding Level of Care Code New Pt Level 4 (46952) Diagnoses Lumbar radiculopathy M54.16
--- OUTSIDE RECORDS SUMMARY | 2024-06-22 10:29 | XMS_ITS ---
Author Organization Armond Lopez MD Address [address] [place], [place] [id number] Care Team Providers Care Verification Specialist Name Role Phone Armond Lopez Primary Care Provider Allergies Allergen (clinical drug ingredient) Drug/Non Drug Allergy documented on EMR Reaction Allergy Type Onset Date Status ibuprofen Ibuprofen hives Drug Allergy Active amoxicillin amoxicillin (uncoded) not hives but an amoxicillin allergy Allergy Active codeine codeine (uncoded) nauseau Allergy Ac tive Substance with sulfonamide structure and antibacterial mechanism of action (substance) sulfa (uncoded) hives Allergy Active REASON FOR VISIT needs letter for her [facility] Medications Medication SIG (Take, Route, Frequency, Duration) Notes Start Date End Date Status ProAir RespiClick 108 (90 Base) MCG/ACT 2 puffs as needed Inhalation every 6 hrs for 30 days 01/21/2018 Not-Taking Benadryl Allergy 25 MG 1 tablet as neede d Orally three times a day Not-Taking Diprolene AF 0.05 % 1 application to affected area Externally Once a day for 30 days 05/30/2017 Active Gabapentin 100 MG 2 caps at HS Orally Once a day Not-Taking Omeprazole 20 MG TAKE ONE CAPSULE EVERY 12 HOURS( 1 OF THE DOSES AT BEDTIME ) Oral for 30 Active Metoprolol Succinate ER 50 MG TAKE 1 TABLET DAILY Active hydroCHLOROthiazide 25 MG TAKE 1 TABLET EVERY MORNING for 90 Active Levothyroxine Sodium 100 MCG TAKE 1 TABL ET BY MOUTH EVERY DAY IN THE MORNING ON EMPTY STOMACH for 90 Active Potassium Chloride ER 10 MEQ TAKE 1 TABL ET BY MOUTH EVERY DAY WITH FOOD for 90 Active dexAMETHasone 4 MG 1 tablet Orally 3 times a day for 7 days 02/14/2024 Not-Taking Vitamin D 50 MCG (1999) 1 capsule Ora lly Once a day 07/20/2019 Active Problems Problem Type SNOMED Code ICD Code Onset Dates Problem Status W/U Status Risk Notes Problem Disorder of lumbar disc (327211976) Lumbar disc disease (M51.9) Active confirmed Vital Signs Blood pressure systolic 128 mm Hg 05/29/19 25 Blood pressure diastolic 80 mm Hg 025 Height 64 in 05/28/2024 Weight 192 lbs 05/28/2024 BMI 32.95 kg/m2 05/28/2024 weight is up 2 pounds since 04-06-24 Encounters Encounter Location Date Provider Diagnosis Armond Lopez MD [address] [place], [place] [id number] 05/28/2024 Armond Lopez Psoriasis L40.9 and Lumbar disc disease M51.9 Assessments Encounter Date Diagnosis (ICD Code) Assessment Notes Treatment Notes Treatment Clinical Notes Section Notes 05/28/2024 Psoriasis (ICD-10 - L40.9) stable, will cntonue current regiment 05/28/2024 Lumbar disc disease (ICD-10 - M51.9) is going to get an injectio at [facility] 06/01 and wants an extension of her fmla. / needs extension from 04/13 until june 22 Plan Of Treatment Medication Medication Name Sig Start Date Stop Date Notes Diprolene AF 0.05 % 1 application to aff ected area Externally Once a day for 30 days 05/30/2017 Treatment Notes Assessment Notes Psoriasis stable, will cntonue current regiment Lumbar disc disease is going to get an i njectio at [facility] 06/01 and wants an extension of her fmla. / needs extension from 04/13 until june 22 Next Appt Details Follow Up: 4 Weeks, Reason: Provider Name:Armond cheung, 07/24/2024 10:45:00 AM, [address], [address], [place], [place], [id number], Provider Name:Armond Shelley ier, 11/10/2024 07:00:00 AM, [address], [address], [place], [id number], Provider Name:Armond Shelley ier, 11/16/2024 03:30:00 PM, [address], [address], [place], [id number], Progress Notes * Davonte ROGERSOB:1960 ( 64 yo F)Acc No.[id number]:05/28/2024 Progress Notes Patient:?Lea ROGERS Provider:?Armond Lopez MD :1960???Age:64 Y???Sex:Female D ate:05/28/2024 Address:[address] [place] [address], , [facility] Subjective: * Chief Complaints: * ???needs letter for her [facility] * HPI: ???Symptom(s):?patient is a 64 yo female here for follow up. mostly needs? paper work./ left leg and knee hurts. spends most of the day sitting in recliner. hurts in thigh and knee and sometimes to her foot. * ROS:?General/Constitutional:?Denies?Chills.?Denies?Fatigue.?Denies?Fever.?Denies?Headache.?ENT:?Denies?Sore throat.?Respiratory:?Denies?Cough.?Denies?Shortness of breath at rest.?Denies?Shortness of breath with exertion.?Gastrointestinal:?Denies?Diarrhea.?Denies?Nausea.? * Medical History:? * Surgical History:? * Hospitalization/Major Diagno stic Procedure:? * Medications:?TakingOmeprazol e 20 MG Capsule Delayed Release TAKE ONE CAPSULE EVERY 12 HOURS( 1 OF THE DOSES AT BEDTIME ) Oral Diprolene AF 0.05 % Cream 1 application to affected area Externally Once a day Vitamin D 50 MCG (1999 UT) Capsule 1 capsule Orally Once a day Metoprolol Succinate ER 50 MG Tablet Extended Release 24 Hour TAKE 1 TABLET DAILY hydroCHLOROthiazide 25 MG Tablet TAKE 1 TABLET EVERY MORNING Levothyroxine Sodium 100 MCG Tablet TAKE 1 TABLET BY MOUTH EVERY DAY IN THE MORNING ON EMPTY STOMACH Potassium Chloride ER 10 MEQ Tablet Extended Release TAKE 1 TABLET BY MOUTH EVERY DAY WITH FOOD Taking Omeprazole 20 MG Capsule Delayed Release TAKE ONE CAPSULE EVERY 12 HOURS( 1 OF THE DOSES AT BEDTIME ) Oral Taking Diprolene AF 0.05 % Cream 1 application to affected area Externally Once a day Taking Vitamin D 50 MCG (1999 UT) Capsule 1 capsule Orally Once a day Taking Metoprolol Succinate ER 50 MG Tablet Extended Release 24 Hour TAKE 1 TABLET DAILY Taking hydroCHLOROthiazide 25 MG Tablet TAKE 1 TABLET EVERY MORNING Taking Levothyroxine Sodium 100 MCG Tablet TAKE 1 TABLET BY MOUTH EVERY DAY IN THE MORNING ON EMPTY STOMACH Taking Potassium Chloride ER 10 MEQ Tablet Extended Release TAKE 1 TABLET BY MOUTH EVERY DAY WITH FOOD Not-Taking/PRNGabapentin 100 MG Capsule 2 caps at HS Orally Once a day dexAMETHasone 4 MG Tablet 1 tablet Orally 3 times a day ProAir RespiClick 108 (90 Base) MCG/ACT Aerosol Powder Breath Activated 2 puffs as needed Inhalation every 6 hrs Benadryl Allergy 25 MG Tablet 1 tablet as needed Orally three times a day Medication List reviewed and reconciled with the patientNot-Taking/PRN Gabapentin 100 MG Capsule 2 caps at HS Orally Once a day Not-Taking/PRN dexAMETHasone 4 MG Tablet 1 tablet Orally [...] hivesyes[Allergies Verified] Objective: * Vitals:?Ht: 64, Wt: 192, BMI :32.95, BP:128/80, Wt-k.09. weight is up 2 pounds since 04-06-24. * Examination: ???General Examination: ?GENERAL APPEARANCE:?alert, well hydrated, in no distress.?HEAD:?normocephalic.?SKIN:?good turgor.?HEART:?no murmurs, rubs, gallops, regular rate and rhythm.?LUNGS:?no wheezes, rales, rhonchi, good air movement, clear to auscultation bilaterally.?NEUROLOGIC:?normal dtr's? in lower extremeites but 50%dorsiflexion and postive straight legs.? Assessment: * Assessment: 1.?Lumbar disc disease - M51 .9 (Primary)???2.?Psoriasis - L40.9??? Plan: * Treatment: 2.?Psoriasis? Refill Diprolene AF Cream, 0.05 %, 1 application to affected area, Externally, Once a day, 30 days, 60, Refills 3.?? Notes: stable, will cntonue current regiment?? * Procedure Codes:? * Follow Up:?4 Weeks * * Sign off status: Completed true * Provider:?Armond Lopez MD Date:?0 05/28/2024 Generated for Umm east/Butch/Vidyaitting on:?06/22/2024 10:29 AM EDT History and Physical Notes * HPI (History of Present Illness) Category Sub-Category Detail Notes Category Not es Symptom(s) patient is a 64 yo female here for follow up. mostly needs paper work./ left leg and knee hurts. spends most of the day sitting in recliner. hurts in thigh and knee and sometimes to her foot. Examination Category Sub-Category Detail Notes Category Not es General Examination GENERAL APPEARANCE: alert, w ell hydrated, in no distress HEAD: normocephalic HEART: no murmurs, rubs, ga llops, regular rate and rhythm LUNGS: no wheezes, rales, r honchi, good air movement, clear to auscultation bilaterally NEUROLOGIC: normal dtr's in lowe r extremeites but 50%dorsiflexion and postive straight legs SKIN: good turgor
--- OUTSIDE RECORDS SUMMARY | 2024-06-22 10:30 | XMS_ITS | Patient Health Record ---
Author Organization Armond Lopez MD Address [address] [place], [place] [id number] Care Team Providers Care [employer]orer [employer] Name Role Phone Armond Lopez Primary Care [...] action (substance) sulfa (uncoded) hives Allergy Active Results Component Value Reference Range Notes Hemoglobin A1c Reviewed date:11/11/2023 04:14:17 PM Interpretation: Performing Lab: Notes/Report: Hemoglobin A1c 6.0 Complete Blood Count Auto Di ff Reviewed date:11/04/2023 12:36:56 PM Interpretation: Performing Lab:[facility], [address] [place] [phone] Notes/Report: White Blood Count 7.4 4.8-10.8 X10*3/uL Red Blood Count 4.16 4.20-5.50 X10*6/uL Hemoglobin 13.3 12.0-16.0 g/dl Hematocrit 39.6 37.0-47.0 % Mean Corpuscular Volume 95.2 80.0-98.0 fL Mean Corpuscular Hemoglobin 32.0 27.0-33.0 pg Mean Corpuscular HGB Conc 33.6 31.0-35.0 g/dl Red Cell Distribution Width 13.2 11.0-16.0 % Platelet Count 243 160-400 X10*3/uL Mean Platelet Volume 13.1 9.4-12.3 fL Neutrophils Percent Auto 51.0 45-73 % Imm Gran Pct Auto 0.3 0.0-0.4 % Lymphocytes Percent Auto 30.9 20-40 % Monocytes Percent Auto 11.4 2-11 % Eosinophils Percent Auto 6.1 0-4 % Basophils Percent Auto 0.3 0-2 % NRBC Pct Auto 0.0 0.0-0.2 /100WBC Neutrophils Absolute Auto 3.8 2.0-8.3 x10*3/uL Imm Gran Abs Auto 0.02 0.00-0.03 X10*3/uL Lymphocytes Absolute Auto 2.3 1.2-4.9 X10*3/uL Monocytes Absolute Auto 0.8 0.1-1.2 X10*3/uL Eosinophils Absolute Auto 0.5 0.0-0.4 X10*3/uL Basophils Absolute Auto 0.0 0.0-0.2 X10*3/uL NRBC Abs Auto 0.000 0.0-0.012 X10*3/uL Comprehensive [place]. Panel Fa st Reviewed date:11/04/2023 12:57:12 PM Interpretation: Performing Lab:[facility], [address] [place] [phone] Notes/Report: Sodium 143 135-145 mmol/L Potassium 3.7 3.3-5.1 mmol/L Chloride 105 96-108 mmol/L Carbon Dioxide 28 22-29 mmol/L Anion Gap 14 12-20 Blood Urea Nitrogen 17 9-16 mg/dL Creatinine 0.86 0.5-1.4 mg/dL Estimated Glomerular Filt Rate > 60 NOTE: For -[place] individuals, multiply the result by 1.210. Chronic Kidney Disease: Estimated GFR < 60 mL/min/1.73m2 Severe Kidney Disease: Estimated GFR < 15 mL/min/1.73m2 Glucose Fasting 131 60-99 mg/dL A fasting glucose of 126 mg/dl or greater on more than one occasion is considered diagnostic of diabetes. Calcium 9.7 8.4-10.2 mg/dL Bilirubin Total 0.6 0.0-1.0 mg/dL Aspartate Amino Transferase 16 5-31 U/L Alanine Aminotransferase 25 0-31 U/L Total Protein 7.0 6.5-8.0 g/dL Albumin Level 4.2 3.5-5.0 g/dL Alkaline Phosphatase 61 39-117 U/L Lipid Panel Reviewed date:11/04/2023 12:36:30 PM Interpretation: Performing Lab:[address] [phone] Notes/Report: Triglycerides 82 <150 mg/dL Desirable Triglyceride: less than 150 mg/dL Borderline High Triglyceride 150-199 mg/dL High Triglyceride: 200-499 mg/dL Very High Triglyceride: greater than or equal to 5OO mg/dL Cholesterol 179 <200 mg/dL Desirable Cholesterol: less than 200 mg/dL Borderline High Cholesterol: 200-239 mg/dL High Cholesterol: greater than 239 mg/dL LDL Cholesterol Calculated 115 <100 mg/dL Desirable LDL: less than 100 mg/dL Near Optimal/Above Optimal LDL: 110-129 mg/dL Borderline High LDL: 130-159 mg/dL High LDL: 160-189 mg/dL Very High LDL: greater than or equal to 190 mg/dL HDL Cholesterol 48 >40 mg/dL Desirable HDL: greater than 40 mg/dL Note: This HDL assay may give artificially low results in patients with liver disease. Vitamin D 25-OH Total Reviewed date:11/04/2023 12:36:18 PM Interpretation: Performing Lab:[address] [phone] Notes/Report: Vitamin D 25-OH Total 66.1 >30 ng/mL Health Based Reference Values* < 20 ng/mL Deficient 20-30 ng/mL Insufficient > 30 ng/mL Sufficient *Debbie CHOU. N Engl J Med. 2007;357:266-280 Care must be taken in interpreting Vitamin D results from different laboratories and methodologies. Published data demonstrated that results from patients undergoing hemodialysis may show a negative bias when tested with various automated 25-OH vitamin D assays when compared to LC-MS/MS. When testing samples from patients whose predominant form of Vitamin D is Vitamin D2, such as patients receiving Vitamin D2 supplementation, results that are subtherapeutic should be confirmed with another method such as LC-MS/MS. TSH reflex Free T4 Reviewed date:11/04/2023 12:37:05 PM Interpretation: Performing Lab:[address] [phone] Notes/Report: TSH reflex Free T4 0.35 0.32-4.0 uIU/mL UA ClnCatch+Micro w/rflx Cul t Reviewed date:11/04/2023 12:46:51 PM Interpretation: Performing Lab:[facility], [address] [place] [phone] Notes/Report: Urine, Clean Catch Color Urine Yellow Appearance Urine Clear PH 6.0 5.0-9.0 Glucose Urine UA Negative Negative mg/dL Urine Blood Negative Negative Specific [place] - Urine 1.025 1.005-1.025 Urine Protein Negative Neg-Trace mg/dL Urine Ketones Negative Negative mg/dL Nitrite Urine Negative Negative Leukocyte Esterase Urine Negative Negative RBC Urine 0-2 0-2 /HPF WBC Urine 0-5 0-5 /HPF Squamous Epithelial Cell Urine 0-2 0-2 /HPF Bacteria Urine None Seen None Seen Hyaline Casts Urine 0-2 0-2 /LPF UA CC w/rflx Micro + Cult Reviewed date:07/21/2023 08:02:47 AM Interpretation: Performing Lab:[facility], [address] [place] [phone] Notes/Report: [id number] Urine, Clean Catch Color Urine Yellow Appearance Urine Clear PH 7.0 5.0-9.0 Glucose Urine UA Negative Negative mg/dL Urine Blood Negative Negative Specific [place] - Urine 1.010 1.005-1.025 Urine Protein Negative Neg-Trace mg/dL Urine Ketones Negative Negative mg/dL Nitrite Urine Negative Negative Leukocyte Esterase Urine Negative Negative XR chest 1V Reviewed date:07/22/2023 03:12:55 PM Interpretation: Performing Lab: Notes/Report: [address] [address] XRay Report Signed Patient: Lea Rogers MR#: [id number] 8 : 1960 Acct:[id number] Age/Sex: 63 / F ADM Date: 07/20/23 Loc: .ED Attending Dr: Ordering Physician: Chance Ramirez MD Date of Service: 07/20/23 Procedure(s): XR chest 1V Accession Number(s): [id number] cc: Armond Lopez MD; Chance Ramirez MD EXAMINATION: XR CHEST CLINICAL INFORMATION: Dizzy COMPARISON: Chest radiograph from 03/06/2021 TECHNIQUE: Frontal view of the chest was obtained. FINDINGS: No focal consolidation. No pneumothorax. Trachea is midline. Cardiac mediastinal silhouette is not enlarged. Aorta demonstrates atherosclerotic calcifications. No large pleural effusion. Osseous structures are intact. Soft tissues are unremarkable. XR/XR chest 1V IMPRESSION: No acute cardiopulmonary process. Dictated By: Mustapha Garner MD Signed By: <Electronically signed by Mustapha Garner MD in OV> 07/20/23 1124 DD/ 1015 TD/TT: Store Stock Help: [place] [address] XRay Report Signed Patient: Lea Rogers MR#: [id number] 8 : 1960 Acct:[id number] Age/Sex: 63 / F ADM Date: 07/20/23 Loc: .ED Attending Dr: Ordering Physician: Chance Ramirez MD Date of Service: 07/20/23 Procedure(s): XR sharon st 1V Accession Number(s): [id number] cc: Armond Lopez MD; Chance Ramirez MD EXAMINATION: XR CHEST CLINICAL INFORMATION: Dizzy COMPARISON: Chest radiograph fro m 03/06/2021 TECHNIQUE: Frontal view of the chest was obtained. FINDINGS: No focal consolidati on. No pneumothorax. Trachea is midline. Cardiac mediastinal silhouet te is not enlarged. Aorta demonstrates atherosclerotic calcifications. No large pleural effusion. Osseous structures are intac t. Soft tissues are unremarkable. XR/XR chest 1V IMPRESSION: No acute cardiopulmonary process. Dictated By: Sa shena Garner MD Signed By: <Electronically signed by Mustapha Garner MD in OV> 07/20/23 1124 DD/ 1015 TD/TT: Store Stock Help: Carmen Norman date:11/04/2023 12:37:13 PM Interpretation: Performing Lab:[facility], [address] [place] [phone] Notes/Report: Hold Gold See Note Specimen held untested for 24 hours; Call to request Chemistry testing. XR lumbar spine 4V min Reviewed date:03/05/2024 05:39:32 PM Interpretation: Performing Lab: Notes/Report: [address] [place] [address] XRay Report Signed Patient: Lea Rogers MR#: [id number] 8 : 1960 Acct:[id number] Age/Sex: 63 / F ADM Date: 03/04/24 Loc: HO.XRAY Attending Dr: Howard ESCUDERO Ordering Physician: Howard Hernandez Date of Service: 03/04/24 Procedure(s): XR lumbar spine 4V min Accession Number(s): [id number] cc: Armond Lopez MD; Howard Hernandez EXAMINATION: Lumbar spine 4 views. CLINICAL INDICATION: Low back pain. No injury. COMPARISON: None. FINDINGS: There is mild levoscoliosis. Lumbar lordosis is maintained. There is grade 1 anterolisthesis L4-L5. Rest of the vertebral alignment is normal. There is loss of L4-5 and L5-S1 disc heights with mild ventral spondylosis from L3-4 through L5-S1 disc levels. No visible acute fracture, lytic or sclerotic process seen. SI joints are symmetrical and normal. No pars defect on oblique views. The paravertebral soft tissues are normal. XR/XR lumbar spine 4V min IMPRESSION: Mild levoscoliosis with grade 1 anterolisthesis L4 over L5. No aggressive lytic or sclerotic process seen. No visible acute fracture or dislocation seen. Electronically signed by: Tolu Dyer MD 03/04/2024 12:09 PM [facility] Dictated By: Tolu Dyer MD Signed By: <Electronically signed by Tolu Dyer MD in OV> 03/04/24 1209 DD/ 1135 TD/TT: 03/04/24 1153 Store Stock Help: [facility] [address] [place] [address] XRay Report Signed Patient: Lea Rogers MR#: [id number] 8 : 1960 Acct:[id number] Age/Sex: 63 / F ADM Date: 03/04/24 Loc: HO.XRAY Attending Dr: Lucien ESCUDERO Ordering Physician: Howard Hernandez Date of Service: 03/04/24 Procedure(s): XR lum bar spine 4V min Accession Number(s): [id number] cc: Armond Lopez MD; Howard Hernandez EXAMINATION: Lumbar spine 4 views. CLINICAL INDICATION: Low back pain. No injury. COMPARISON: None. FINDINGS: There is m ild levoscoliosis. Lumbar lordosis is maintained. There is grade 1 anterolisthesis L4-L5. Rest of the vertebral alignment is normal. There is loss of L4-5 and L5-S1 disc heights with mild ventral spondylosis from L3-4 through L5-S1 disc levels. No visible acute fracture, lyti c or sclerotic process seen. SI joints are symmetrical and norm al. No pars defect on oblique views. The paravertebral soft tissues are normal. XR/XR lumbar spine 4V min IMPRESSION: Mild levoscoliosis with grade 1 anterolisthesis L4 over L5. No aggressive lytic or sclerotic process seen. No visible acute fracture or dislocat ion seen. Electronically anastacia d by: Tolu Dyer MD 03/04/2024 12:09 PM [facility] Dictated By: Tolu Dyer MD Signed By: <Electronically signed by Tolu Dyer MD in OV> 03/04/24 1209 DD/ 1135 TD/TT: 03/04/24 1153 Store Stock Help: TAYLOR WHITE tomosynthesis screening B I Reviewed date:05/18/2024 05:30:53 PM Interpretation: Performing Lab: Notes/Report: [facility] [place] [address] Mammography Report Signed Patient: Lea Rogers MR#: [id number] 8 : 1960 Acct:[id number] Age/Sex: 63 / F ADM Date: 05/11/24 Loc: HO.MAMMO Attending Dr: Armond Lopez MD Ordering Physician: Armond Lopez MD Results: 0In complete: Needs Additional Imaging Evaluation Date of Service: 05/11/24 Follow Up: Additional Imagi ng Procedure(s): MM tomosynthesis screening BI Accession Number(s): [id number] cc: Armond Lopez MD EXAMINATION: MM SCREENING DIGITAL BREAST TOMOSYNTHESIS, BILATERAL CLINICAL INFORMATION: Screening. Asymptomatic. COMPARISON: Mammography: Comparison is made with available priors TECHNIQUE: Digital breast mammography with tomosynthesis is performed in both the craniocaudal and mediolateral oblique views along with computer-aided detection (CAD). FINDINGS: The breasts are heterogeneously dense, which may obscure small masses (ACR BI-RADS breast composition Category c). Left: There are no significant masses, abnormal calcifications, or other abnormalities. Right: Asymmetry superior breast posterior depth on MLO view. No suspicious calcifications or other abnormal findings. MM/MM tomosynthesis screening BI IMPRESSION: Additional imaging is recommended ASSESSMENT: BI-RADS BI-RADS 0 - Incomplete: Needs additional Imaging. RECOMMENDATION: 1. Additional views of the right breast. 2. Targeted ultrasound if warranted after review of the additional views. 3. Radiology department staff will contact the patient for additional imaging. Additional Imaging required This examination should not preclude the clinical evaluation of a suspicious palpable abnormality. This patient's information was entered into a reminder system with a target due date for their next mammogram. Electronically signed by: Roula Urena DO 05/17/2024 01:12 PM EDT Dictated By: Roula Urena DO Signed By: <Electronically signed by Roula Urena DO in OV> 05/17/24 1312 DD/ 1600 TD/TT: 05/11/24 1612 Store Stock Help: [facility] [address] [place] [address] Dr. [place], [place] [id number] Mammography Report Signed Patient: Lea Rogers MR#: [id number] 8 : 1960 Acct:[id number] Age/Sex: 63 / F ADM Date: 05/11/24 Loc: HO.MAMMO Attending Dr: Armond Lopez MD Ordering Physician: Armond Lopez MD Results: 0In complete: Needs Additional Imaging Evaluation Date of Service: 05/11/24 Follow Up: Additional Imagi ng Procedure(s): MM tomosynthesis screening BI Accession Number(s): [id number] cc: Armond Lopez MD EXAMINATION: MM SCREENING DIGITAL BREAST TOMOSYNTHESIS, BILATERAL CLINICAL INFORMATION: Screening. Asymptomatic. COMPARISON: Mammography: Compari son is made with available priors TECHNIQUE: Digital breast mammography with tomosynthesis is performed in both the craniocaudal and mediolateral oblique views along with computer-aided detection (CAD). FINDINGS: The breasts are heterogeneously dense, which may obscure small masses (ACR BI-RADS breast composition Category c). Left: There are no significant masses, abnormal calcifications, or other abnormalities. Right: Asymmetry superior breast posterior depth on MLO view. No suspicious calcifications or other abnormal findings. MM/MM tomosynthesis screening BI IMPRESSION: Additional imaging i s recommended ASSESSMENT: BI-RADS BI-RADS 0 - Incomplete: Needs additional Imaging. RECOMMENDATION: 1. Additional views of the right breast. 2. Targeted ultrasou nd if warranted after review of the additional views. 3. Radiology departm ent staff will contact the patient for additional imaging. Additional Imaging required This examination aldair uld not preclude the clinical evaluation of a suspicious palpable abnormality. This patient's information was entered into a reminder system with a target due date for their next mammogram. Electronically anastacia d by: Roula Urena DO 05/17/2024 01:12 PM EDT Dictated By: Roula Urena DO Signed By: <Electronically signed by Roula Urena DO in OV> 05/17/24 1312 DD/ 1600 TD/TT: 05/11/24 1612 Store Stock Help: CINDY tomosynthelico added views R Reviewed date:06/10/2024 05:15:19 PM Interpretation: Performing Lab: Notes/Report: [place] [facility] [address] [place] [address] Mammography Report Signed Patient: Lea Rogers MR#: [id number] 8 : 1960 Acct:[id number] Age/Sex: 64 / F ADM Date: 06/10/24 Loc: HO.MAMMO Attending Dr: Armond Lopez MD Ordering Physician: Armond Lopez MD Results: 2Be nign Findings Date of Service: 06/10/24 Follow Up: 1 Year From Orig ina Mammogram Procedure(s): MM tomosynthesis added views R Accession Number(s): [id number] cc: Armond Lopez MD EXAMINATION: MM DIAGNOSTIC DIGITAL BREAST TOMOSYNTHESIS, RIGHT Right limited ultrasound. CLINICAL INFORMATION: Call back from screening for asymmetry in the low axillary upper outer right breast. COMPARISON: Mammography: Priors on PACS. TECHNIQUE: Digital breast tomosynthesis is performed in both the craniocaudal and mediolateral oblique views along with computer-aided detection (CAD). Synthesized 2D images are generated from the tomosynthesis. FINDINGS: There are scattered areas of fibroglandular density (ACR BI-RADS breast composition Category b). Oval mass in the low axillary region appears as a probable normal-appearing intramammary lymph node. There are no significant masses, abnormal calcifications, or other abnormalities. Targeted color Doppler ultrasound scanning in the upper outer breast from 8-12 o'clock demonstrates a normal-appearing intramammary lymph node at 10:00 10 cm from the nipple which correlates with the mammographic asymmetry and is benign. MM/MM tomosynthesis added views R IMPRESSION: Normal low axillary upper outer quadrant intramammary lymph node. Benign. ASSESSMENT: BI-RADS BI-RADS 2 - Benign Findings RECOMMENDATION: 1 year F/U Results were provided to the patient at time of visit by the technologist. This patient's information was entered into a reminder system with a target due date for their next mammogram. Electronically signed by: Roula Urena DO 06/10/2024 12:37 PM EDT Dictated By: Roula Urena DO Signed By: <Electronically signed by Roula Urena DO in OV> 06/10/24 1237 DD/ 1000 TD/TT: 06/10/24 1028 Store Stock Help: [facility] [address] [place] [address] Mammography Report Signed Patient: Lea Rogers MR#: [id number] 8 : 1960 Acct:[id number] Age/Sex: 64 / F ADM Date: 06/10/24 Loc: HO.MAMMO Attending Dr: Armond Lopez MD Ordering Physician: Armond Lopez MD Results: 2Be nign Findings Date of Service: 06/10/24 Follow Up: 1 Year From Orig ina Mammogram Procedure(s): MM tomosynthesis added views R Accession Number(s): [id number] cc: Armond Lopez MD EXAMINATION: MM DIAGNOSTIC DIGITA L BREAST TOMOSYNTHESIS, RIGHT Right limited ultrasound. CLINICAL INFORMATION: Call back from screening for asymmetry in the low axillary upper outer right breast. COMPARISON: Mammography: Priors on PACS. TECHNIQUE: Digital breast tomosynthesis is performed in both the craniocaudal and mediolateral oblique views along with computer-aided detection (CAD). Synthesized 2D image s are generated from the tomosynthesis. FINDINGS: There are scattered areas of fibroglandular density (ACR BI-RADS breast composition Category b). Oval mass in the low axillary region appears as a probable normal-appearing intramammary lymph node. There are no significant masses, abnormal calcifications, or other abnormalities. Targeted color Doppl er ultrasound scanning in the upper outer breast from 8-12 o'clock demonstrates a normal-appearing intramammary lymph node at 10:00 10 cm from the nipple which correlates with the mammographic asymmet ry and is benign. MM/MM tomosynthesis added views R IMPRESSION: Normal low axillary upper outer quadrant intramammary lymph node. Benign. ASSESSMENT: BI-RADS BI-RADS 2 - Benign Findings RECOMMENDATION: 1 year F/U Results were provide d to the patient at time of visit by the technologist. This patient's information was entered into a reminder system with a target due date for their next mammogram. Electronically anastacia d by: Roula Urena DO 06/10/2024 12:37 PM EDT RP Dictated By: Roula Urena DO Signed By: <Electronically signed by Roula Urena DO in OV> 06/10/24 1237 DD/ 1000 TD/TT: 06/10/24 1028 Store Stock Help: US breast RT limited mamm on ly Reviewed date:06/10/2024 05:15:39 PM Interpretation: Performing Lab: Notes/Report: [facility] [place], [place] [address] Ultrasound Report Signed Patient: Lea Rogers MR#: [id number] 8 : 1960 Acct:[id number] Age/Sex: 64 / F ADM Date: 06/10/24 Loc: HO.MAMMO Attending Dr: Armond Lopez MD Ordering Physician: Armond Lopez MD Date of Service: 06/10/24 Procedure(s): US breast RT limited mamm only Accession Number(s): [id number] cc: Armond Lopez MD EXAMINATION: MM DIAGNOSTIC DIGITAL BREAST TOMOSYNTHESIS, RIGHT Right limited ultrasound. CLINICAL INFORMATION: Call back from screening for asymmetry in the low axillary upper outer right breast. COMPARISON: Mammography: [facility] on PACS. TECHNIQUE: Digital breast tomosynthesis is performed in both the craniocaudal and mediolateral oblique views along with computer-aided detection (CAD). Synthesized 2D images are generated from the tomosynthesis. FINDINGS: There are scattered areas of fibroglandular density (ACR BI-RADS breast composition Category b). Oval mass in the low axillary region appears as a probable normal-appearing intramammary lymph node. There are no significant masses, abnormal calcifications, or other abnormalities. Targeted color Doppler ultrasound scanning in the upper outer breast from 8-12 o'clock demonstrates a normal-appearing intramammary lymph node at 10:00 10 cm from the nipple which correlates with the mammographic asymmetry and is benign. US/US breast RT limited mamm only IMPRESSION: Normal low axillary upper outer quadrant intramammary lymph node. Benign. ASSESSMENT: BI-RADS BI-RADS 2 - Benign Findings RECOMMENDATION: 1 year F/U Results were provided to the patient at time of visit by the technologist. This patient's information was entered into a reminder system with a target due date for their next mammogram. Electronically signed by: Roula Urena DO 06/10/2024 12:37 PM EDT Dictated By: Roula Urena DO Signed By: <Electronically signed by Roula Urena DO in OV> 06/10/24 1237 DD/ 1030 TD/TT: 06/10/24 1057 Store Stock Help: [facility] [address] [place] [address] Ultrasound Report Signed Patient: Lea Rogers MR#: [id number] 8 : 1960 Acct:[id number] Age/Sex: 64 / F ADM Date: 06/10/24 Loc: HO.MAMMO Attending Dr: Armond Lopez MD Ordering Physician: Armond Lopez MD Date of Service: 06/10/24 Procedure(s): US dickson ast RT limited mamm only Accession Number(s): [id number] cc: Armond Lopez MD EXAMINATION: MM DIAGNOSTIC DIGITA L BREAST TOMOSYNTHESIS, RIGHT Right limited ultrasound. CLINICAL INFORMATION: Call back from screening for asymmetry in the low axillary upper outer right breast. COMPARISON: Mammography: Priors on PACS. TECHNIQUE: Digital breast tomosynthesis is performed in both the craniocaudal and mediolateral oblique views along with computer-aided detection (CAD). Synthesized 2D image s are generated from the tomosynthesis. FINDINGS: There are scattered areas of fibroglandular density (ACR BI-RADS breast composition Category b). Oval mass in the low axillary region appears as a probable normal-appearing intramammary lymph node. There are no significant masses, abnormal calcifications, or other abnormalities. Targeted color Doppl er ultrasound scanning in the upper outer breast from 8-12 o'clock demonstrates a normal-appearing intramammary lymph node at 10:00 10 cm from the nipple which correlates with the mammographic asymmet ry and is benign. US/US breast RT limited mamm only IMPRESSION: Normal low axillary upper outer quadrant intramammary lymph node. Benign. ASSESSMENT: BI-RADS BI-RADS 2 - Benign Findings RECOMMENDATION: 1 year F/U Results were provide d to the patient at time of visit by the technologist. This patient's information was entered into a reminder system with a target due date for their next mammogram. Electronically anastacia d by: Roula Urena DO 06/10/2024 12:37 PM EDT RP Dictated By: Roula Urena DO Signed By: <Electronically signed by oRula Urena DO in OV> 06/10/24 1237 DD/ 1030 TD/TT: 06/10/24 1057 Store Stock Help: Reason For Referral Reason SCIATICA OF LEFT ANDREA E Diagnosis 1 Sciatica of left andrea e (M54.32) Referral Organization Armond Lopez MD Referring Provider First Name Armond Referring Provider Last Name Jessica Referring Provider Speciality Internal M edicine Referred Provider [facility] Referred Provider Specialty Pain Medicin e General Notes Ivet Odom 0 02/24/2024 09:36:09 AM >appt is in the [facility] office, patient is aware of anatGisela Patti A 03/12/2024 08:18:42 AM >office note recd Referral Priority Routine Referral Appointment Date 03/04/2024 Medications Medication SIG (Take, Route, Frequency, Duration) Notes Start Date End Date Status Diprolene AF 0.05 % 1 application to affected area Externally Once a day for 30 days 05/30/2017 Active Gabapentin 100 MG 2 caps at HS Orally Once a day Not-Taking Metoprolol Succinate ER 50 MG TAKE 1 TABLET DAILY for 90 Active ProAir RespiClick 108 (90 Base) MCG/ACT 2 puffs as needed Inhalation every 6 hrs for 30 days 01/21/2018 Not-Taking dexAMETHasone 4 MG 1 tablet Orally 3 times a day for 7 days 02/14/2024 Not-Taking traMADol HCl 50 MG 1 tablet as needed Orally three times a day for 10 days 06/19/2024 Active Omeprazole 20 MG TAKE ONE CAPSULE EVERY 12 HOURS( 1 OF THE DOSES AT BEDTIME ) Oral for 30 Active Tylenol 8 Hour 650 MG 2 tablets as neede d Orally every 8 hrs Active Benadryl Allergy 25 MG 1 tablet as neede d Orally three times a day Not-Taking hydroCHLOROthiazide 25 MG TAKE 1 TABLET EVERY MORNING for 90 Active Vitamin D 50 MCG (1999 UT) 1 capsule Ora lly Once a day 07/20/2019 Active Potassium Chloride ER 10 MEQ TAKE 1 TABL ET BY MOUTH EVERY DAY WITH FOOD for 90 Active Levothyroxine Sodium 100 MCG TAKE 1 TABL ET BY MOUTH EVERY DAY IN THE MORNING ON EMPTY STOMACH for 90 Active Immunizations Vaccine Route Administration Date Status Comme nts DECLINED, FLU Unknown 07/15/2012 Administered DECLINED, FLU Unknown 03/31/2013 Administered DECLINED, FLU Unknown 12/29/2013 Refused Flu Vaccine Unknown 04/18/2015 Refused Fluarix Quadrivalent Unknown 05/14/2016 Refused PPSV23 (Pnemovax) Unknown 05/20/2017 Refused Fluarix Quadrivalent Unknown 12/31/2017 Refused Shingrix Unknown 12/31/2017 Refused Fluarix Quadrivalent Unknown 10/20/2018 Refused Covid Vaccine Unknown 07/25/2020 Refused Social History Tobacco Use: Social History Observation Description Date Details (start date - stop date) Former Smoker NA - NA Tobacco Use/Smoking Question Answer Notes Patient is a former smoker How long has it been since y ou last smoked? > 10 years Additional Findings: Tobacco Non-User Fo rmer smoker, currently using no form of tobacco Alcohol Screen Question Answer Notes Did you have a drink containing alcohol in the p ast year? No Points 0 Interpretation Negative Problems Problem Type SNOMED Code ICD Code Onset Dates Problem Status W/U Status Risk Notes Problem Neutropenia (D70.9) Active confirmed Problem 65502344 Vitamin D deficiency (E55.9) Active confirmed Problem Disorder of lumbar disc (248388870) Lumbar disc disease (M51.9) Active confirmed Problem 97150953 Essential hypertension (I10) Active confirmed Problem 1830506 Psoriasis (L40.9) Active confirmed Problem 348977407 Acquired hypothyroidism (E03.9) Active confirmed Problem 1537338 Prediabetes (R73.09) Active confirmed Problem 080811116965111 Sciatica of left side (M54.32) Active confirmed Problem 56532279 Atherosclerosis (I70.90) Active confirmed Problem 847087482 Elevated LDL cholesterol level (E78.00) Active confirmed Problem 080159963 Osteopenia determined by x-ray (M85.80) Active confirmed Problem 963681966 BMI 31.0-31.9,adult (Z68.31) Active confirmed Problem 00859674 Chronic allergic rhinitis (J30.9) Active confirmed Vital Signs Blood pressure diastolic 70 mm Hg 06/19/2024 cheri ght is up 3 pounds since 05-28-24 Height 64 in 06/19/2024 weight is up 3 pounds since 05-28-24 Blood pressure systolic 132 mm Hg 06/19/2024 weig ht is up 3 pounds since 05-28-24 Weight 195 lbs 06/19/2024 weight is up 3 pounds since 05-28-24 BMI 33.47 kg/m2 06/19/2024 weight is up 3 pounds since 05-28-24 Encounters Encounter Location Date Provider Diagnosis Armodn Lopez MD [address] [place] [address] [id number] 11/04/2023 Armond Lopez Blood tests for rout ine general physical examination Z00.00 ; Acquired hypothyroidism E03.9 ; Essential hypertension I10 ; Elevated LDL cholesterol level E78.00 ; Vitamin D deficiency E55.9 and Neutropenia D70.9 Armond Lopez MD [address] [place] [address] [id number] 06/19/2024 Armond Lopez Lumbar disc disease with radiculopathy M51.16 Armond Lopez MD [address] [place] [address] [id number] 07/29/2023 Armond Lopez Atherosclerosis I70. 90 ; Light-headed feeling R42 and Chronic allergic rhinitis J30.9 Armond Lopez MD [address] [place] [address] [id number] 11/11/2023 Armond Lopez Prediabetes R73.09 ; Annual physical exam Z00.00 ; Essential hypertension I10 ; Acquired hypothyroidism E03.9 ; Elevated LDL cholesterol level E78.00 ; Vitamin D deficiency E55.9 and Depression screening Z13.31 Armond Lopez MD [address] [place] [address] [id number] 02/14/2024 Armond Lopez Sciatica of left andrea e M54.32 Armond Lopez MD [address] [place] [address] [id number] 02/21/2024 Armond Lopez Sciatica of left andrea e M54.32 Armond Lopez MD [address] [place] [address] [id number] 03/06/2024 Armond Lopez Sciatica of left andrea e M54.32 Armond Lopez MD [address] [place] [address] [id number] 04/06/2024 Armond Lopez Sciatica of left andrea e M54.32 Armond Lopez MD [address] [place] [address] [id number] 05/08/2024 Armond Lopez Lumbar disc disease with radiculopathy M51.16 and URI (upper respiratory infection) J06.9 Armond Lopez MD [address] [place] [address] [id number] 05/28/2024 Armond Lopez Psoriasis L40.9 and Lumbar disc disease M51.9 Armond Lopez MD [address] [place] [address] [id number] 07/22/2023 Armond Lopez MD [address] [place] [address] [id number] 02/24/2024 Armond Lopez MD [address] [place] [address] [id number] 03/09/2024 Armond Lopez Acquired hypothyroid ism E03.9 Armond Lopez MD [address] [place] [address] [id number] 04/16/2024 Armond Lopez MD [address] [place] [address] [id number] 05/26/2024 Armond Lopez Assessments Encounter Date Diagnosis (ICD Code) Assessment Notes Treatment Notes Treatment Clinical Notes Section Notes 11/04/2023 Blood tests for routine general physical examination (ICD-10 - Z00.00) 11/04/2023 Acquired hypothyroidism (ICD-10 - E03.9) 06/19/2024 Lumbar disc disease with radiculopathy (ICD-10 - M51.16) seems most likely will need surgery is going to see surgeon, patient verbalized understanding of medication and directions for use 07/29/2023 Atherosclerosis (ICD-10 - I70.90) have explained the need for statins. she is going to think about it 07/29/2023 Light-headed feeling (ICD-10 - R42) was evaluated in the er and nothing appeared. felt she was not there 11/11/2023 Prediabetes (ICD-10 - R73.09) stable, no need for medication at this time, will contiue to monitor 11/11/2023 Annual physical exam (ICD-10 - Z00.00) labs reviewed and discussed with patient 02/14/2024 Sciatica of left side (ICD-10 - M54.32) is intolerant of nsaids/ referral to [facility], patient verbalized understanding of medication and directions for use 02/21/2024 Sciatica of left side (ICD-10 - M54.32) 03/06/2024 Sciatica of left side (ICD-10 - M54.32) is going to [facility] for physical therapy and follow up with doctor in month 04/06/2024 Sciatica of left side (ICD-10 - M54.32) was given gabapentin and was afraid to take it. hopefully will be injected next week/ clearly not able to work at this time and will need to be out at least another week 05/08/2024 Lumbar disc disease with radiculopathy (ICD-10 - M51.16) need results of mri at [facility] 05/08/2024 URI (upper respiratory infection) (ICD-10 - J06.9) sounds like she has a cold. no need for any treatment 05/28/2024 Psoriasis (ICD-10 - L40.9) stable, will cntonue current regiment 05/28/2024 Lumbar disc disease (ICD-10 - M51.9) is going to get an injectio at [facility] 06/01 and wants an extension of her fmla. / needs extension from 04/13 until june 22 03/09/2024 Acquired hypothyroidism (ICD-10 - E03.9) 11/04/2023 Essential hypertension (ICD-10 - I10) 07/29/2023 Chronic allergic rhinitis (ICD-10 - J30.9) had taken benedryl daily and did not make her sick 11/11/2023 Essential hypertension (ICD-10 - I10) will continue current regiment 11/04/2023 Elevated LDL cholesterol level (ICD-10 - E78.00) 11/11/2023 Acquired hypothyroidism (ICD-10 - E03.9) tsh in control, will cntinue current regiment 11/04/2023 Vitamin D deficiency (ICD-10 - E55.9) 11/11/2023 Elevated LDL cholesterol level (ICD-10 - E78.00) 11/04/2023 Neutropenia (ICD-10 - D70.9) 11/11/2023 Vitamin D deficiency (ICD-10 - E55.9) doing well with good level, will continue current regiment 11/11/2023 Depression screening (ICD-10 - Z13.31) negative screen 02/14/2024 Other THE REFERRAL CAMPO S [facility] TO [facility] 05/08/2024 Other RESULTS REQUEST ED FOR MED RECORDS @ [facility] Plan Of Treatment Pending Test Test Name Order Date Electrocardiogram (EKG) 05/30/2017 Electrocardiogram (EKG) 07/17/2018 Urinalysis 07/18/2020 XR DEXA axial skeleton 07/25/2020 Next Appt Details Provider Name:Armond Shelley ier, 07/24/2024 10:45:00 AM, [address] [place] [address], [address], [phone], Provider Name:Armond Shelley ier, 11/10/2024 07:00:00 AM, [address] [place] [address], [address], [phone], Provider Name:Armond Shelley ier, 11/16/2024 03:30:00 PM, [address] [place] [address], [address], [phone], Insurance Providers Payer Name Payer Address Payer Phone Subscriber Number Group Number Insured Name Patient Relationship to Insured Coverage Start Date Coverage End Date [employer] [address] [place], [place] [id number] [phone] [id number] Lea Rogers Self - patient is the insured Medical (General) History Medical History History ICD Code 03/31/2013 - Discussed colono scopy and pap smear is going to do them 2015 and 2017 discussed again 03/07/2018 - Colonoscopy by Dr. Peguero re peat due 02/202303/07/2018 - Endo by Dr. Peguero can take aspirin
--- OUTSIDE RECORDS SUMMARY | 2024-06-22 10:30 | XMS_ITS ---
Author Organization Armond Lopez MD Address [address] [place] [address] [place] [phone] Care Team Providers Care Supervisor Television Chassis Repair Name Role Phone Armond Lopez Primary Care Provider REASON FOR VISIT FMLA letter Encounters Encounter Location Date Provider Diagnosis Armond Lopez MD [address] [place] [address] [place] [address] [phone] 05/26/2024 Armond Lopez Plan Of Treatment Next Appt Details Provider Name:Armond cheung, 07/24/2024 10:45:00 AM, [address] [place] [address], [address], [phone], Provider Name:Armond cheung, 11/10/2024 07:00:00 AM, [address] [place] [address], [address], [phone], Provider Name:Armond cheung, 11/16/2024 03:30:00 PM, [address] [place] [address], [address], [phone], Progress Notes * Davonte ROGERSOB:1960 ( 64 yo F)Acc No.[id number]:05/26/2024 Patient:?SUE, Lea :1960???Age:64 Y???Sex:Female Address:[address] [place] [address] , , [place] [address] * true * Date:? Generated for Umm east/Butch/eTransmitting on:?06/22/2024 10:30 AM EDT
--- OUTSIDE RECORDS SUMMARY | 2024-06-22 10:30 | XMS_ITS ---
Author Organization Armond Lopez MD Address [address] [place], [place] [id number] Care Team Providers Care Distance Education Coordinator Name Role Phone Armond Lopez Primary Care Provider [phone] Allergies Allergen (clinical drug ingredient) Drug/Non Drug [...] Duration) Notes Start Date End Date Status Omeprazole 20 MG TAKE ONE CAPSULE EVERY 12 HOURS( 1 OF THE DOSES AT BEDTIME ) Oral for 30 Active hydroCHLOROthiazide 25 MG TAKE 1 TABLET [...] MORNING ON EMPTY STOMACH for 90 Active traMADol HCl 50 MG 1 tablet as needed Orally three times a day for 10 days 06/19/2024 Active Tylenol 8 Hour 650 MG 2 [...] a day for 7 days 02/14/2024 Not-Taking Diprolene AF 0.05 % 1 application to affected area Externally Once a day for 30 days 05/30/2017 Active Gabapentin 100 MG 2 caps at HS Orally Once a day Not-Taking Metoprolol Succinate ER 50 MG TAKE 1 TABLET DAILY for 90 Active Vital Signs Blood pressure systolic 132 mm Hg 06/20/19 25 Blood pressure diastolic 70 mm Hg 025 Height 64 in 06/19/2024 Weight 195 lbs 06/19/2024 BMI 33.47 kg/m2 06/19/2024 weight is up 3 pounds since 05-28-24 Encounters Encounter Location Date Provider Diagnosis Armond Lopez MD [address] [place] [address] [phone] 06/19/2024 Armond Lopez Lumbar disc disease with radiculopathy M51.16 Assessments Encounter Date Diagnosis (ICD Code) Assessment Notes Treatment Notes Treatment Clinical Notes Section Notes 06/19/2024 Lumbar disc disease with radiculopathy (ICD-10 - M51.16) seems most likely will need surgery is going to see surgeon, patient verbalized understanding of medication and directions for use Plan Of Treatment Medication Medication Name Sig Start Date Stop Date Notes traMADol HCl 50 MG 1 tablet as needed O rally three times a day for 10 days 06/19/2024 Treatment Notes Assessment Notes Lumbar disc disease with radiculopathy s eems most likely will need surgery is going to see surgeon, patient verbalized understanding of medication and directions for use Next Appt Details Follow Up: 4 Weeks, Reason: Provider Name:Armond cheung, 07/24/2024 10:45:00 AM, [address] [place] [address], [place] [address], [place], [place], [phone], Provider Name:Armond cheung, 11/10/2024 07:00:00 AM, [address] [place] [address], [place] [address], [place], [place], [phone], Provider Name:Armond Eriberto Shelley ier, 11/16/2024 03:30:00 PM, [address], [address], [place], [place], [phone], Progress Notes * Davonte ROGERSOB:1960 ( 64 yo F)Acc No.[id number]:06/19/2024 Progress Notes Patient:?Lea ROGERS Provider:?Armond Lopez MD :1960???Age:64 Y???Sex:Female D ate:06/19/2024 Address:[address] [place] [address] , [address], [id number] Subjective: * Chief Complaints: * ???1. 4 week. * HPI: ???Symptom(s):?patient is a 64 yo female here for 4 week follow up visit/ had injection and it didn't help. they are going to do another injection. has consult with dr parsons. in 3 days. next injection 08/01/ / wants some stronger pain meds. juancarlos koehler made her vomit. pain still severe. pain is in leg left and muscle spasms in quads. * ROS:?General/Constitutional:?Denies?Chills.?Denies?Fatigue.?Denies?Fever.?Denies?Headache.?ENT:?Denies?Sore throat.?Respiratory:?Denies?Cough.?Denies?Shortness of breath at rest.?Denies?Shortness of breath with exertion.?Gastrointestinal:?Denies?Diarrhea.?Denies?Nausea.?having difficulty with getting in and out of car. * Medical History:?03/31/2013 - Discussed colonoscopy and pap smear is going to do them 2015 and 2018 discussed again, 03/07/2018 - Colonoscopy by Dr. Peguero repeat due 02/2023, 03/07/2018 - Endo by Dr. Peguero, Can take aspirin. * Medications:?Taking Tylenol 8 Hour 650 MG Tablet Extended Release 2 tablets as needed Orally every 8 hrs , Taking Omeprazole 20 MG Capsule Delayed Release TAKE ONE CAPSULE EVERY 12 HOURS( 1 OF THE DOSES AT BEDTIME ) Oral , Taking Vitamin D 50 MCG (2000 UT) Capsule 1 capsule Orally Once a day , Taking hydroCHLOROthiazide 25 MG Tablet TAKE 1 TABLET EVERY MORNING , Taking Levothyroxine Sodium 100 MCG Tablet TAKE 1 TABLET BY MOUTH EVERY DAY IN THE MORNING ON EMPTY STOMACH , Taking Potassium Chloride ER 10 MEQ Tablet Extended Release TAKE 1 TABLET BY MOUTH EVERY DAY WITH FOOD , Taking Diprolene AF 0.05 % Cream 1 application to affected area Externally Once a day , Taking Metoprolol Succinate ER 50 MG Tablet Extended Release 24 Hour TAKE 1 TABLET DAILY , Not-Taking/PRN Gabapentin 100 MG Capsule 2 caps at HS Orally Once a day , Not-Taking/PRN dexAMETHasone 4 MG Tablet 1 tablet [...] an amoxicillin allergy, Ibuprofen: hives. Objective: * Vitals:?Ht: 64, Wt: 195, BMI :33.47, BP:132/70, Wt-k.45. weight is up 3 pounds since 05-28-24. * Examination: ???General Examination: ?GENERAL APPEARANCE:?alert, well hydrated, in no distress.?HEAD:?normocephalic.?SKIN:?good turgor.?HEART:?no murmurs, rubs, gallops, regular rate and rhythm.?LUNGS:?no wheezes, rales, rhonchi, good air movement, clear to auscultation bilaterally.?NEUROLOGIC:?dtr's normal, abnormal with 50% loss of dorsiflexion. with positve straight leg both legs.? Assessment: * Assessment: 1.?Lumbar disc disease with radiculopathy - M51.16 (Primary)??? Plan: * Treatment: * Follow Up:?4 Weeks * * The named appointment provid er may or may not be the originator of this progress note, and it is not deemed complete until electronically signed by the appointment provider. Sign off status: Pending * Provider:?Armond Lopez MD Date:?0 06/19/2024 Generated for Umm east/Butch/Vidyaitting on:?06/22/2024 10:30 AM EDT History and Physical Notes * HPI (History of Present Illness) Category Sub-Category Detail Notes Category Not es Symptom(s) patient is a 64 yo female here for 4 week follow up visit/ had injection and it didn't help. they are going to do another injection. has consult with dr parsons. in 3 days. next injection 08/01/ / wants some stronger pain meds. hydro codone made her vomit. pain still severe. pain is in leg left and muscle spasms in quads. Examination Category Sub-Category Detail Notes Category Not es General Examination GENERAL APPEARANCE: alert, w ell hydrated, in no distress HEAD: normocephalic HEART: no murmurs, rubs, ga llops, regular rate and rhythm LUNGS: no wheezes, rales, r honchi, good air movement, clear to auscultation bilaterally NEUROLOGIC: dtr's normal, abnorm al with 50% loss of dorsiflexion. with positve straight leg both legs SKIN: good turgor
== END 2024-06-22 11:22 | disposition home or self-care (01) ==
LOC: HO.HNS 10:04
PROVIDERS: PCP Internal Medicine; Referring Provider Physician Assistant; Visit Provider Physician Assistant
DX: M54.16 Radiculopathy, lumbar region (principal)
CPT/HCPCS: 99204

== ENCOUNTER 2024-06-22 09:58 | Outpatient (REF) | payer BC, SELFPAY ==
--- NOTE | ~2024-06-22 | XR_ITS ---
EXAMINATION: XR LUMBOSACRAL SPINE CLINICAL INFORMATION: M54.16 - Radiculopathy, lumbar region COMPARISON: 03/04/2024. TECHNIQUE: 4 views of the lumbar spine, inclusive of flexion and extension views, were obtained. FINDINGS: Normal bone mineralization. Mild levoconvex scoliosis, apex at L3. Normal lordosis. No fracture, compression deformity, or suspicious bone lesion. There is a 3 mm degenerative appearing retrolisthesis of L3 on L4, a 5 mm degenerative appearing anterolisthesis of L4 on L5. There is normal facet alignment. There are degenerative facet changes left greater than right spanning L3-S1. On flexion exam, there is no change in the subtle subluxations. On extension exam, there is no change in the subtle subluxations. There is no evidence of instability. Soft tissues demonstrate minimal vascular calcifications. Moderate degenerative changes in the SI joints bilaterally. XR/XR lumbar spine 4V min IMPRESSION: 1. Mild to moderate spondylosis with mild levoconvex scoliosis. 2. No evidence of instability on flexion and extension views. Electronically signed by: Tony Menjivar MD 06/22/2024 12:38 PM EDT
== END 2024-06-22 09:59 | disposition home or self-care (01) ==
LOC: HO.HOSX 09:58
PROVIDERS: PCP Internal Medicine; Referring Provider Physician Assistant; Visit Provider Physician Assistant
DX: M54.16 Radiculopathy, lumbar region (principal)
CPT/HCPCS: 72110

== ENCOUNTER → 2024-06-22 10:58 | Outpatient (BNV) | payer BC, SELFPAY | PROVIDERS: PCP Internal Medicine; Referring Provider Physician Assistant; Visit Provider Radiology Diagnostic Radiology | DX: M54.50 Low back pain, unspecified (principal) | CPT/HCPCS: 72110 ==

== ENCOUNTER 2024-07-14 06:04 | Inpatient (IN) | payer BC, SELFPAY ==
[2024-07-09 09:58] VITALS: BP 171/75; PULSE 82; RESP 16; O2SAT 96; BMI 33.0
[2024-07-09 12:16] LABS: Hematocrit 38.7 % (37.0-47.0); Hemoglobin 13.2 g/dl (12.0-16.0); Mean Corpuscular HGB Conc 34.1 g/dl (31.0-35.0); Mean Corpuscular Hemoglobin 31.6 pg (27.0-33.0); Mean Corpuscular Volume 92.6 fL (80.0-98.0); Platelet Count 222 X10*3/uL (160-400); Red Blood Count 4.18 X10*6/uL (4.20-5.50); Red Cell Distribution Width 12.6 % (11.0-16.0); White Blood Count 7.7 X10*3/uL (4.8-10.8)
[2024-07-09 13:12] LABS: Anion Gap 13 (12-20); Blood Urea Nitrogen 17 mg/dL (9-16); Calcium 9.8 mg/dL (8.4-10.2); Carbon Dioxide 28 mmol/L (22-29); Chloride 104 mmol/L (96-108); Creatinine Clr Calc Pharmacy 77.9; Estimated Glomerular Filt Rate > 60; Glucose Random 117 mg/dL (60-115); Potassium 3.9 mmol/L (3.3-5.1); Sodium 141 mmol/L (135-145)
[2024-07-14] VITALS (22 sets, daily range): BP systolic 103–167; BP diastolic 50–80; PULSE 57–86; RESP 12–22; TEMP 36.2–36.8; O2SAT 96–100; BMI 33.3; BMI 36.0
--- NOTE | ~2024-07-14 | FL_ITS ---
EXAMINATION: FL GUIDANCE ONLY HISTORY: L4-5 OLIF COMPARISON: Correlation is made to plain films of the lumbar spine dated 06/22/2024. TECHNIQUE: Fluoroscopy time: 1 minute, 21 seconds. Cumulative Dose: 22.17 mGy. DAP: 14.58 mGym2 Images: 6. FINDINGS: Fluoroscopic spot films of the lumbar spine demonstrate posterior fusion of L4 and L5 with pedicle screws, spinal stabilization rods, and an intervertebral spacer. FL/FL guidance in OR IMPRESSION: Fluoroscopy during procedure. Please see procedure report for additional information. Electronically signed by: Stanley Shelby MD 07/14/2024 10:37 AM EDT
[2024-07-14] MEDS: methocarbamoL 750 MG TABLET PO (06:56)
[2024-07-14] MEDS: Lactated Ringers 1,000 ML 100 ML IVCONT (06:56)
--- NOTE | 2024-07-14 06:56 | MHC.SHP ---
Pre-Procedural Eval Section A - 24 Hr Update-Section A only Date of Service: 07/14/24 The patient is an INPATIENT: No Changes since office visit: No Cold of Flu in the past 2 weeks, No New Medical Problems, No Changes in Medication and No Patient answered all questions The patient has been examined within 24 hours of the surgical procedure. The History & Physical has been completed within 30 days and I have reviewed it.: No Section B - Complete if H&P > 30 days Chief Complaint: s/p L4-5 OLIF Allergies: Allergies Allergy/AdvReac Type Severity Reaction Status Date / Time amoxicillin [AMOXICILLIN] Allergy Severe HIVES/RASH, Verified 07/09/24 10:25 facial swelling codeine [CODEINE] Allergy Severe Nausea, Verified 07/09/24 10:25 vomitting ibuprofen Allergy Severe rash Verified 06/22/24 10:12 Sulfa (Sulfonamide Allergy Severe HIVES/RASH Verified 07/09/24 10:25 Antibiotics) [SULFA(SULFONAMIDE ANTIBIOTICS)] hydrocodone AdvReac Severe Nausea, Verified 07/09/24 10:25 vomiting Review of Systems Sugical H&P ROS: Negative: Constitution, Cardiovascular, Respiratory, Neurological, Psychiatric, Hem-Onc, Allergic/Immunologic, Gastrointestinal, Genitourinary, Musculoskeletal, Integumentary, Endocrine and Eyes/Ears/Nose/Throat Exam Surgical H&P Exam: Normal: HEENT, Normal: Heart, Normal: Lungs, Normal: Extremities, Normal: Abdomen, Normal: Skin and Normal: Neurological (awake, alert,oriented x 3 ) Plan Diagnosis/Plan: Unchanged L4-5 Oblique lumbar interbody fusion Time Spent With Patient Time: Total time managing care of this patient today _6___ minutes.
[2024-07-14] MEDS: Gabapentin 300 MG CAPSULE PO (07:00)
[2024-07-14] MEDS: vancomycin HCL 1,500 MG in 0.9 % Sodium Chloride 500 ML 333.33 MG IV (07:04)
--- NOTE | 2024-07-14 07:19 | P.CONAN_ITS ---
Documented by User: Armida Enriquez NP 07/13/24 09:38 HPI - Anesthesia Eval Consult details Narrative: 64yo F for L4-5 Oblique Lumbar Interbody Fusion, 07/14/24 Hx of recurrent epitaxis - none for years before bad one in 2021, cauturized GERD: prn ppi d/t dietary choice ~ 2 x weekly PMFSH Active Problems Active Problems: All Active Problems Lumbar radiculopathy (Acute) COVID-19 (Acute) COVID-19 (Acute) Carpal tunnel syndrome of right wrist (Acute) Numbness and tingling in both hands (Acute) Arthritis of carpometacarpal (CMC) joint of right thumb (Acute) Tendinitis of thumb (Acute) Past Medical History Medical History (Updated 07/09/24 @ 10:40 by Tejal Fraser RN) Hx of epistaxis (10/2021) Arthritis Back pain Pre-diabetes Personal history of COVID-19 (02/2021) GERD (gastroesophageal reflux disease) Situational anxiety HTN (hypertension) Hypothyroid Family History Family History Mother No problems noted. Father No problems noted. Family history of problems with anesthesia: No Surgical History Surgical History (Updated 07/09/24 @ 09:57 by Tejal Fraser RN) Hx of colonoscopy (2018) History of esophagogastroduodenoscopy (EGD) (2017) History of carpal tunnel surgery of right wrist (2020) History of Problems with Anesthesia: No (Never rec'd GA) Social History Social History (Updated 07/09/24 @ 10:26 by Tejal Fraser RN) Household Members: None Housing: Other Housing Other:: mobile home Are you a primary critical care nurse to a significant other at home: No Do you presently have visiting nurse or other home services: No Alcohol intake: never Patient Tobacco Use Status: Former Tobacco user Tobacco use type: Cigarette Use of substances other than those prescribed or required for medical reasons: No Have you been hit, kicked, punched, or otherwise hurt by someone within the past year? 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 Allergies Allergy/AdvReac Type Severity Reaction Status Date / Time amoxicillin [AMOXICILLIN] Allergy Severe HIVES/RASH, Verified 07/09/24 10:25 facial swelling codeine [CODEINE] Allergy Severe Nausea, Verified 07/09/24 10:25 vomitting ibuprofen Allergy Severe rash Verified 06/22/24 10:12 Sulfa (Sulfonamide Allergy Severe HIVES/RASH Verified 07/09/24 10:25 Antibiotics) [SULFA(SULFONAMIDE ANTIBIOTICS)] hydrocodone AdvReac Severe Nausea, Verified 07/09/24 10:25 vomiting Home Medications ?Medication ?Instructions ?Recorded ?Confirmed ?Last Taken ?Type hydrochlorothiazide 25 mg tablet 25 mg PO DAILY 05/10/20 07/09/24 10/25/20 08:30 History levothyroxine 100 mcg tablet 100 mcg PO DAILY 05/10/20 07/09/24 10/25/20 08:30 History metoprolol succinate 50 mg 50 mg PO DAILY 05/10/20 07/09/24 10/25/20 08:30 History tablet,extended release 24 hr omeprazole 20 mg capsule,delayed 20 mg PO DAILY PRN Acid Reflux 05/10/20 07/09/24 10/25/20 08:30 History release potassium chloride 10 mEq 10 meq PO DAILY 05/10/20 07/09/24 10/25/20 08:30 History tablet,extended release acetaminophen 500 mg tablet 1,000 mg PO QID PRN Pain 07/09/24 07/09/24 Unknown History aspirin-caffeine 500 mg-32.5 mg 1 tab PO TID PRN Pain 07/09/24 07/09/24 07/08/24 History tablet (Magalis Back and Body) cholecalciferol (vitamin D3) 50 50 mcg PO DAILY 07/09/24 07/09/24 Unknown History mcg (2,000 unit) capsule (Vitamin D3) flaxseed oil 1,000 mg capsule 1,000 mg PO DAILY 07/09/24 07/09/24 07/04/24 History tramadol 50 mg tablet 50 mg PO Q8H PRN Pain 07/09/24 07/09/24 Unknown History Exam Height,Weight and Vital Signs: Height 5 ft 4 in Weight 87.09 kg Last Vital Signs Pulse 82 07/09/24 09:58 Resp 16 07/09/24 09:58 BP 171/75 H 07/09/24 09:58 Pulse Ox 96 07/09/24 09:58 O2 Del Method Room Air 07/09/24 09:58 Pertinent Lab Results Pertinent Lab Results: Lab Results 07/09/24 07/09/24 Range/Units 11:17 11:34 WBC 7.7 (4.8-10.8) X10*3/uL RBC 4.18 L (4.20-5.50) X10*6/uL Hgb 13.2 (12.0-16.0) g/dl Hct 38.7 (37.0-47.0) % MCV 92.6 (80.0-98.0) fL MCH 31.6 (27.0-33.0) pg MCHC 34.1 (31.0-35.0) g/dl RDW 12.6 (11.0-16.0) % Plt Count 222 (160-400) X10*3/uL MPV 13.0 H (9.4-12.3) fL Absolute Nucleated RBC 0.000 (0.0-0.012) X10*3/uL Nucleated RBC % (auto) 0.0 (0.0-0.2) /100WBC Sodium 141 (135-145) mmol/L Potassium 3.9 (3.3-5.1) mmol/L Chloride 104 (96-108) mmol/L Carbon Dioxide 28 (22-29) mmol/L Anion Gap 13 (12-20) BUN 17 H (9-16) mg/dL Creatinine 0.80 (0.5-1.4) mg/dL Estim Creat Clear Calc 77.9 Estimated GFR > 60 Random Glucose 117 H (60-115) mg/dL Calcium 9.8 (8.4-10.2) mg/dL Blood Type O Positive Antibody Screen NEGATIVE Narrative Narrative: EKG 07/2023 Vent. Rate : 061 BPM Atrial Rate : 061 BPM P-R Int : 144 ms QRS Dur : 068 ms QT Int : 450 ms P-R-T Axes : 065 016 068 degrees QTc Int : 453 ms Normal sinus rhythm Normal ECG When compared with ECG of 13-JAN-2018 08:46, No significant change was found Airway Loose/Missing/Broken Teeth: Yes (side molars, right upper bridge, crowned molar) Heart: RRR Lungs: CTAB Assessment and Plan Assessment Anesthesia Assessment: Anesthesia Plan Discussed and PAT Visit Final Anesthetic Review Family History of Problems with Anesthesia: No History of Problems with Anesthesia: No (Never rec'd GA) Documented by User: Annika Ho, 07/14/24 07:22 [facility] Past Medical History Medical History (Updated 07/09/24 @ 10:40 by Tejal Fraser RN) Hx of epistaxis (10/2021) Arthritis Back pain Pre-diabetes Personal history of COVID-19 (02/2021) GERD (gastroesophageal reflux disease) Situational anxiety HTN (hypertension) Hypothyroid Family History Family History Mother No problems noted. Father No problems noted. Family history of problems with anesthesia: No Surgical History Surgical History (Updated 07/09/24 @ 09:57 by Tejal Fraser RN) Hx of colonoscopy (2018) History of esophagogastroduodenoscopy (EGD) (2017) History of carpal tunnel surgery of right wrist (2020) History of Problems with Anesthesia: No (never had GA) Social History Social History (Updated 07/09/24 @ 10:26 by Tejal Fraser RN) Household Members: None Housing: Other Housing Other:: mobile home Are you a primary critical care nurse to a significant other at home: No Do you presently have visiting nurse or other home services: No Alcohol intake: never Patient Tobacco Use Status: Former Tobacco user Tobacco use type: Cigarette Use of substances other than those prescribed or required for medical reasons: No Have you been hit, kicked, punched, or otherwise hurt by someone within the past year? 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 Allergies Allergy/AdvReac Type Severity Reaction Status Date / Time amoxicillin [AMOXICILLIN] Allergy Severe HIVES/RASH, Verified 07/09/24 10:25 facial swelling codeine [CODEINE] Allergy Severe Nausea, Verified 07/09/24 10:25 vomitting ibuprofen Allergy Severe rash Verified 06/22/24 10:12 Sulfa (Sulfonamide Allergy Severe HIVES/RASH Verified 07/09/24 10:25 Antibiotics) [SULFA(SULFONAMIDE ANTIBIOTICS)] hydrocodone AdvReac Severe Nausea, Verified 07/09/24 10:25 vomiting Home Medications ?Medication ?Instructions ?Recorded ?Confirmed ?Last Taken ?Type hydrochlorothiazide 25 mg tablet 25 mg PO DAILY 05/10/20 07/09/24 10/25/20 08:30 History levothyroxine 100 mcg tablet 100 mcg PO DAILY 05/10/20 07/09/24 10/25/20 08:30 H istory metoprolol succinate 50 mg 50 mg PO DAILY 05/10/20 07/09/24 10/25/20 08:30 History tablet,extended release 24 hr omeprazole 20 mg capsule,delayed 20 mg PO DAILY PRN Acid Reflux 05/10/20 07/09/24 10/25/20 08:30 History release potassium chloride 10 mEq 10 meq PO DAILY 05/10/20 07/09/24 10/25/20 08:30 History tablet,extended release acetaminophen 500 mg tablet 1,000 mg PO QID PRN Pain 07/09/24 07/09/24 Unknown History aspirin-caffeine 500 mg-32.5 mg 1 tab PO TID PRN Pain 07/09/24 07/09/24 07/08/24 History tablet (Magalis Back and Body) cholecalciferol (vitamin D3) 50 50 mcg PO DAILY 07/09/24 07/09/24 Unknown History mcg (2,000 unit) capsule (Vitamin D3) flaxseed oil 1,000 mg capsule 1,000 mg PO DAILY 07/09/24 07/09/24 07/04/24 History tramadol 50 mg tablet 50 mg PO Q8H PRN Pain 07/09/24 07/09/24 Unknown History Exam Exam Date and Time: 07/14/24 0720 Height,Weight and Vital Signs: Height 5 ft 4 in Weight 87.09 kg Last Vital Signs Pulse 82 07/09/24 09:58 Resp 16 07/09/24 09:58 BP 171/75 H 07/09/24 09:58 Pulse Ox 96 07/09/24 09:58 O2 Del Method Room Air 07/09/24 09:58 Vital Signs Pulse Rate 82 07/09/24 09:58 Respiratory Rate 16 07/09/24 09:58 Blood Pressure 171/75 H 07/09/24 09:58 Pulse Oximetry 96 07/09/24 09:58 Oxygen Delivery Method Room Air 07/09/24 09:58 Temperature 98.2 F 07/14/24 06:26 Pulse Rate 73 07/14/24 06:26 Respiratory Rate 14 07/14/24 06:26 Blood Pressure 167/80 H 07/14/24 06:26 Pulse Oximetry 98 07/14/24 06:26 Oxygen Delivery Method Room Air 07/14/24 06:26 Airway Mallampati Class: III (small mouth opening) TM Dist: <=3cm Neck ROM: Full Loose/Missing/Broken Teeth: No (patient denies any loose or broken teeth) Heart: S1S2 Assessment and Plan Assessment Anesthesia Assessment: Anesthesia Plan Discussed and Chart Reviewed Final Anesthetic Review Family History of Problems with Anesthesia: No History of Problems with Anesthesia: No (never had GA) NPO: Yes ASA Class: II Final Preanesthetic Review: No Changes in Pt Med Stat, Meds/Allgs Chart Reviewed, Consent Obtained/Reviewed and Anes Risks/Benef Reviewed Patient Risk: Low Procedure Risk: Intermediate Anesthetic Plan Anesthetic Plan: GA and Agree w/ Assess. and Plan Disposition: Standard PACU
--- NOTE | 2024-07-14 07:51 | PHA.MEDREC ---
Pharmacy Consult ? Medication Reconciliation Pharmacy has completed the medication reconciliation.
--- NOTE | 2024-07-14 09:24 | W.PM.OPN ---
Operative Note Operative Note Date of Service: 07/14/24 Narrative: Preop Diagnosis: 1.) Lumbar spondylolisthesis L4-5 Procedure: 1) L4-5 discectomy, arthrodesis and implantation cage through an anterolateral, retroperitoneal approach 2) L4-5 posterior instrumented fusion 3) allograft 4) Injection of 10 cc of Exparel at the transverse process for a muscular erector spinae block and additional Exparel in paravertebral tissue for postop management Consent Informed Consent was obtained for this operation. I have explained the nature, purpose and benefits of the operation. I have discussed the risks and benefit of the operation including possible complications or adverse events with patient/family. Alternative(s) were discussed with the patient with their relative benefits and risks as well as the consequences of not accepting the operation were included in obtaining consent. Surgeon: MAYRA STRANGE MD, PHD Procedure Assisted By: jakob Ivy Description of Procedure This patient is suffering from a L4-5 lumbar spondylolisthesis with back pain and neurogenic claudication symptoms. The patient was offered an oblique lumbar interbody fusion L4-5. The procedure and complications were explained. The patient was consented. The patient was brought to the operating room and endotracheally intubated. The patient was turned in a lateral position with the left side up. Prep and drape was done followed by timeout. A small incision was made in the left lower abdominal quadrant. The muscle fascia was opened after which the 3 muscle layer was split to enter the retroperitoneal space. Dilators were docked in the anterior one third of the L4-5 disc space followed by a retractor. The retractor was opened. The L4-5 disc space was exposed. An annulotomy was done after which an elevator Hannon was used to release the disc material from its endplates and to perforate the contralateral side. A partial discectomy was done. An 8 mm and 10 mm with 6 degree lordosis height trial implant was inserted. The discectomy was completed. The endplates were prepared. An 10 x 45 mm with 6 degree lordosis 4 web cage filled with allograft was inserted into the disc space under fluoroscopic guidance. This resulted in correction of the spondylolisthesis and indirect decompression of the nervous structures.. The retractor was removed. Hemostasis was done. The incision was closed in 2 layers. Steri-Strips used to approximate incision. An OpSite with Tegaderm was used to cover the incision. This marked first part of the procedure. The patient was turned prone on the Alex spine table. 2C arms were installed for fluoroscopy. Prep and drape was done followed by a second timeout. Injection of 10 cc of Exparel at the bilateral L5 transverse processi for a muscular erector spinae block. Two paramedian incisions were made lateral from the L4 and L5 pedicles. The muscle fascia was opened after which the muscle layer was split bluntly to expose the posterolateral gutter. The following steps were taken. A pediguard tap was used to create a transpedicular trajectory into the vertebral body. A K wire was placed. A specially designed instrument was advanced over the K wire to decorticate the posterolateral gutter in preparation for the posterolateral fusion. A pedicle screw was advanced over the K wire and the K wire was removed. The steps were done for the bilateral L4 and L5 pedicles. A total of 4 screws were placed with a diameter of 6.5 x 40 mm. Pedicle screws were connected with 45 mm cary bilaterally and locked down with locking caps. The extension towers were removed. The posterolateral gutter was filled with allograft to complete the posterolateral L4-5 fusion Hemostasis was done and the incision was closed in 2 layers. Steri-Strips were used to approximate the incision. An OpSite with tegaderm was used to cover the incision. All sponge and needle counts were correct. Patient was extubated and transferred in stable is to recovery room. Anesthesia: General Estimated Blood Loss (ml): 50 Duration of Surgery: 1 hour 35 Complications: None Postoperative Plan: Admit to inpatient for clinical observation
[2024-07-14] MEDS: ondansetron HCL 4 MG/2 ML VIAL IVPUSH ×2 (10:50→16:07)
[2024-07-14] MEDS: HYDROmorphone HCl 0.5 MG/0.5 ML SYRINGE IVPUSH ×2 (10:50→12:35)
[2024-07-14] MEDS: Haloperidol Lactate 5 MG/ML VIAL 1 MG IVPUSH (12:29)
[2024-07-14] MEDS: Potassium Chloride ER 10 MEQ TABLET.ER PO (15:22)
[2024-07-14] MEDS: 0.9 % Sodium Chloride 1,000 ML 75 ML IVCONT (15:22)
[2024-07-14] MEDS: Acetaminophen 1,000 MG/100 ML PIGGYBACK 400 MG IV ×2 (15:22→21:26)
[2024-07-14] MEDS: HYDROmorphone HCl 1 MG/ML SYRINGE IVPUSH (16:15)
[2024-07-14] MEDS: Docusate Sodium 100 MG CAPSULE PO (19:40)
[2024-07-14] MEDS: vancomycin HCL 1,000 MG in 0.9 % Sodium Chloride 250 ML 270 MG IV (19:40)
[2024-07-14] MEDS: oxyCODONE HCl Immed Release 5 MG TABLET 10 MG PO (21:27)
[2024-07-15] MEDS: HYDROmorphone HCl 1 MG/ML SYRINGE IVPUSH ×2 (03:26→13:44)
[2024-07-15] MEDS: Acetaminophen 1,000 MG/100 ML PIGGYBACK 400 MG IV ×4 (03:27→22:01)
[2024-07-15 04:00] VITALS: BP 110/59; PULSE 77; RESP 18; TEMP 37.1; O2SAT 93
[2024-07-15] MEDS: Omeprazole 20 MG CAPSULE.DR PO (06:24)
[2024-07-15] MEDS: 0.9 % Sodium Chloride 1,000 ML 75 ML IVCONT (06:24)
[2024-07-15] MEDS: Levothyroxine Sodium 100 MCG TABLET PO (06:24)
[2024-07-15 07:44] VITALS: BP 116/56; PULSE 76; RESP 18; TEMP 36.4; O2SAT 96
[2024-07-15 08:07] VITALS: BP 116/56; PULSE 76
[2024-07-15] MEDS: Metoprolol Succinate ER 50 MG TAB.ER.24H PO (08:07)
[2024-07-15 08:08] VITALS: BP 116/56
[2024-07-15] MEDS: Docusate Sodium 100 MG CAPSULE PO ×2 (08:08→22:02)
[2024-07-15] MEDS: Potassium Chloride ER 10 MEQ TABLET.ER PO (08:08)
[2024-07-15] MEDS: Cholecalciferol (Vitamin D3) 25 MCG TABLET 50 MCG PO (08:08)
[2024-07-15] MEDS: hydroCHLOROthiazide 25 MG TABLET PO (08:08)
[2024-07-15] MEDS: oxyCODONE HCl Immed Release 5 MG TABLET 10 MG PO ×4 (08:23→22:01)
--- NOTE | 2024-07-15 09:00 | HO.NEUROPN_ITS ---
Neurosurgery Operative Note Date of Service: 07/15/24 Narrative: POD: 1 Procedure: L4-5 OLIF Lea is a pleasant 64 year old female who underwent L4-[address] Peterson yesterday. She is still reporting quite a bit of low back pain, and states that she has been having a difficult time getting up to ambulate. Thankfully, she reports that her preoperative symptoms of left lower extremity pain seem to have resolved. She is responding well to her current medication regimen, and has been up out of bed to void. She is tolerating her current diet. She was seen by Physical therapy, who reported the patient will likely need a walker at the time of discharge. Afebrile, vital signs stable. Full strength 5/5 bilateral LE's. Back dressings have some staining without signs of hematoma. No active sanguineous drainage. Area is dry. Plan: The patient was evaluated alongside the attending neurosurgeon Dr. Peterson, who would like to keep the patient admitted to the hospital until tomorrow for further evaluation, pain management, and physical therapy. Dorian Peterson MD,PhD [facility]
--- NOTE | 2024-07-15 09:41 | HO.POSTANES ---
Post Anesthesia Evaluation Post Anesthesia Evaluation Date of Service: 07/15/24 Vital Signs: Vital Signs Temp Pulse Resp BP Pulse Ox O2 Del Method 07/15/24 08:08 116/56 L 07/15/24 08:07 76 116/56 L 07/15/24 07:44 97.5 F 76 18 116/56 L 96 Room Air 07/15/24 04:00 98.7 F 77 18 110/59 L 93 Room Air Anesthesia: General Endotracheal-GETA Mental Status: Awake Pain Control: Satisfactory Nausea/Vomiting: None Hydration: Adequate Anesthesia-Related Issues: No Anes. Related Issues
--- NOTE | 2024-07-15 13:40 | MHC.CM.PN ---
PT LIVES ALONE HAD NO PREVIOUS SERVICES PHYSICAL THERAPY RECOMMENDED HOME W/MARS PT HAS A RIDE HOME DC PLAN HOME WITH NS
[2024-07-15 15:17] VITALS: BP 114/58; PULSE 76; RESP 18; TEMP 37.1; O2SAT 92
[2024-07-15 19:23] VITALS: BP 114/59; PULSE 73; RESP 18; TEMP 36.8; O2SAT 94
[2024-07-16] MEDS: HYDROmorphone HCl 1 MG/ML SYRINGE IVPUSH (01:17)
[2024-07-16] MEDS: Acetaminophen 1,000 MG/100 ML PIGGYBACK 400 MG IV ×2 (03:51→09:27)
[2024-07-16 04:00] VITALS: BP 142/65; PULSE 77; RESP 18; TEMP 36.4; O2SAT 92
[2024-07-16] MEDS: Levothyroxine Sodium 100 MCG TABLET PO (06:00)
[2024-07-16] MEDS: Omeprazole 20 MG CAPSULE.DR PO (06:00)
[2024-07-16 06:07] VITALS: BP 179/77; PULSE 82; RESP 20; TEMP 36.4; O2SAT 94
[2024-07-16 06:32] VITALS: BP 171/75; PULSE 80; RESP 18; TEMP 36.6; O2SAT 93
--- NOTE | 2024-07-16 06:34 | PC.NURSE ---
Patient states not feeling well, weakness and feeling hot. VS taken frequently , BP slightly elevated 172/75, rest WNL. Dr Alfred at bedside to evaluate. Labs ordered. Patient states had similar episodes at home. Dressing to back intact, visible small amt of old staining. Small dressing to LLQ intact with scant stainig. Repet BP 163/73. Patient encouraged to take deep breaths and try to relax since has history of anxiety. Will cont to monitor. O2 SAT 93 percent on RA, patient asking to apply O2. 2 L via NC applied for comfort.
[2024-07-16 06:46] VITALS: BP 155/60; PULSE 72; RESP 18; O2SAT 93
[2024-07-16 07:49] LABS: Glucose, Whole Blood 129 mg/dL (60-115)
[2024-07-16 07:51] VITALS: BP 167/73; PULSE 80; RESP 17; TEMP 36.4; O2SAT 96
[2024-07-16 08:26] LABS: MANUAL DIFF FLAG NO
[2024-07-16 08:28] LABS: Basophils Percent Auto 0.2 % (0-2); Eosinophils Absolute Auto 0.1 X10*3/uL (0.0-0.4); Eosinophils Percent Auto 1.1 % (0-4); Hematocrit 33.7 % (37.0-47.0); Hemoglobin 11.6 g/dl (12.0-16.0); Imm Gran Abs Auto 0.07 X10*3/uL (0.00-0.03); Imm Gran Pct Auto 0.6 % (0.0-0.4); Lymphocytes Absolute Auto 1.4 X10*3/uL (1.2-4.9); Lymphocytes Percent Auto 12.4 % (20-40); Mean Corpuscular HGB Conc 34.4 g/dl (31.0-35.0); Mean Corpuscular Hemoglobin 31.9 pg (27.0-33.0); Mean Corpuscular Volume 92.6 fL (80.0-98.0); Mean Platelet Volume 12.8 fL (9.4-12.3); Monocytes Absolute Auto 1.2 X10*3/uL (0.1-1.2); Monocytes Percent Auto 10.5 % (2-11); Neutrophils Absolute Auto 8.6 x10*3/uL (2.0-8.3); Neutrophils Percent Auto 75.2 % (45-73); Platelet Count 170 X10*3/uL (160-400); Red Blood Count 3.64 X10*6/uL (4.20-5.50); White Blood Count 11.4 X10*3/uL (4.8-10.8)
[2024-07-16 08:50] LABS: Alanine Aminotransferase 31 U/L (0-31); Albumin Level 3.7 g/dL (3.5-5.0); Alkaline Phosphatase 51 U/L (39-117); Anion Gap 11 (12-20); Aspartate Amino Transferase 38 U/L (5-31); Bilirubin Total 0.4 mg/dL (0.0-1.0); Blood Urea Nitrogen 12 mg/dL (9-16); Calcium 9.1 mg/dL (8.4-10.2); Carbon Dioxide 28 mmol/L (22-29); Chloride 105 mmol/L (96-108); Creatinine Clr Calc Pharmacy 89.4; Estimated Glomerular Filt Rate > 60; Glucose Random 139 mg/dL (60-115); Potassium 3.4 mmol/L (3.3-5.1); Sodium 141 mmol/L (135-145); Total Protein 6.2 g/dL (6.5-8.0)
[2024-07-16] MEDS: ondansetron HCL 4 MG/2 ML VIAL IVPUSH (09:27)
[2024-07-16] MEDS: Docusate Sodium 100 MG CAPSULE PO (09:36)
[2024-07-16] MEDS: Cholecalciferol (Vitamin D3) 25 MCG TABLET 50 MCG PO (09:36)
[2024-07-16] MEDS: Potassium Chloride ER 10 MEQ TABLET.ER PO (09:36)
[2024-07-16] MEDS: hydroCHLOROthiazide 25 MG TABLET PO (09:36)
[2024-07-16] MEDS: Metoprolol Succinate ER 50 MG TAB.ER.24H PO (09:37)
[2024-07-16] MEDS: 0.9 % Sodium Chloride 1,000 ML 999 ML IV (10:47)
--- NOTE | 2024-07-16 13:06 | HO.NEURO.PN ---
Neurosurgery Operative Note Date of Service: 07/16/24 Narrative: POD: 2 Procedure: L4-5 OLIF Lea is a pleasant 64 year old female who underwent L4-[address] Peterson 2 days ago. She was seen sitting upright in her bedside chair watching T.V. She reports that overall her low back pain is better than it was yesterday. She continues to report no issues with her left lower extremity. She has been up out of bed multiple times with PT, and is voiding independently. She is tolerating her current diet. PT and case management have evaluated her and are recommending home with health services. They also asked that we provide an Rx for a walker. Afebrile, vital signs stable. Full strength 5/5 bilateral LE's. Back dressings have some staining without signs of hematoma. No active sanguineous drainage. Area is dry. Plan: The patient meets medical criteria to be discharged home. This was discussed with the attending neurosurgeon Dr. Peterson who is in agreement. I will complete a F2F for the patient for home PT. I also provided with a paper Rx for a walker to be filled at discharge at a [facility] pharmacy. I will send in an Rx of Oxycodone to [facility] pharmacy. Dorian Peterson MD,PhD [facility]
[2024-07-16 13:09] LABS: Appearance Urine Clear; Color Urine Yellow; Glucose Urine UA Negative (Negative); Leukocyte Esterase Urine Negative (Negative); Nitrite Urine Negative (Negative); PH 6.5 (5.0-9.0); Urine Blood Negative (Negative); Urine Ketones Negative (Negative); Urine Protein Negative (Neg-Trace)
--- NOTE | 2024-07-16 13:12 | PM.DS ---
DS: Providers Provider Date of Service: 07/16/24 Date of admission: 07/14/24 06:04 Date of discharge: 07/16/24 Primary care physician: Armond Lopez MD DS: Summary Time Attestation Discharge Coordination Time (in mins): 33 Quality: Safe Use of Opioids Does Pt have an Active Cancer Diagnosis on the Problem List?: No Quality: Stroke Does the patient have a stroke diagnosis?: No Physical Exam Vital Signs: Vital Signs: Last Vital Signs Temp 97.5 F 07/16/24 07:51 Pulse 80 07/16/24 07:51 Resp 17 07/16/24 07:51 BP 167/73 H 07/16/24 07:51 Pulse Ox 96 07/16/24 07:51 O2 Del Method Nasal Cannula 07/16/24 07:51 O2 Flow Rate 2 07/16/24 07:51 BMI result Body Mass Index 36.0 DS: Data Data Completed and Pending Labs on day of discharge: Laboratory Results - last 24 hr 07/16/24 07/16/24 07/16/24 07:45 08:11 12:50 WBC 11.4 H RBC 3.64 L Hgb 11.6 L Hct 33.7 L MCV 92.6 MCH 31.9 MCHC 34.4 RDW 13.0 Plt Count 170 MPV 12.8 H Immature Gran % (Auto) 0.6 H Neut % (Auto) 75.2 H Lymph % (Auto) 12.4 L [place] % (Auto) 10.5 Eos % (Auto) 1.1 Baso % (Auto) 0.2 Lymph # (Auto) 1.4 [place] # (Auto) 1.2 Eos # (Auto) 0.1 Baso # (Auto) 0.0 Abs Immat Gran (auto) 0.07 H Absolute Neuts (auto) 8.6 H Absolute Nucleated RBC 0.000 Nucleated RBC % (auto) 0.0 Sodium 141 Potassium 3.4 Chloride 105 Carbon Dioxide 28 Anion Gap 11 L BUN 12 Creatinine 0.73 Estim Creat Clear Calc 89.4 Estimated GFR > 60 POC Glucose 129 H Random Glucose 139 H Calcium 9.1 D Total Bilirubin 0.4 AST 38 H ALT 31 Alkaline Phosphatase 51 Total Protein 6.2 L Albumin 3.7 Urine Color Yellow Urine Appearance Clear Urine pH 6.5 Ur Specific [place] 1.010 Urine Protein Negative Urine Glucose (UA) Negative Urine Ketones Negative Urine Blood Negative Urine Nitrite Negative Ur Leukocyte Esterase Negative Discharge Plan Discharge Anticipated Discharge Date/Time: 07/16/24 13:13 Patient Disposition: Home Health Service Discharge Diagnosis: s/p L4-5 OLIF Referrals: Armond Lopez MD [Primary Care Provider] - 1 Week Discharge Medications: New oxycodone 5 mg tablet See Rx Instructions .ROUTE .COMPLEX PRN (Reason: pain) Qty: 30 0RF Rx Instructions: Take 1-2 tabs by mouth every 4 hours. Partial Fill upon patient request. Continued cholecalciferol (vitamin D3) [Vitamin D3] 50 mcg (2,000 unit) Capsule 50 mcg PO DAILY acetaminophen 500 mg Tablet 1,000 mg PO QID PRN (Reason: Pain) flaxseed oil 1,000 mg Capsule 1,000 mg PO DAILY Rx Instructions: administer with a meal Magalis Back and Body 500-32.5 mg Tablet 1 tab PO TID PRN (Reason: Pain) omeprazole 20 mg capsule,delayed release(DR/EC) 20 mg PO DAILY PRN (Reason: Acid Reflux) hydrochlorothiazide 25 mg tablet 25 mg PO DAILY levothyroxine 100 mcg tablet 100 mcg PO DAILY metoprolol succinate 50 mg tablet extended release 24 hr 50 mg PO DAILY potassium chloride 10 mEq tablet extended release 10 meq PO DAILY Held tramadol 50 mg Tablet 50 mg PO Q8H PRN (Reason: Pain) Hold Instructions: Resume on 08/15/24. May continue when Oxycodone Rx is complete Discharge Orders: Discharge Order (Routine); Ordered 07/16/24 Ordered By: Dorian Minor Diet: Advance to usual diet Activity on Discharge: As tolerated Stand Alone Forms: Patient Portal Discharge page Print Language: Canadian Activity Restrictions/Additional Instructions: After your spinal surgery we ask you to observe the following restrictions/guidelines: Activity: It is normal to feel some discomfort as you increase your activity, but that will improve with time. We ask you avoid heavy lifting or acitivities that cause pain. As a general rule, 8lbs is a safe limit for lifting right after surgery. Walk as much as you feel comfortable but not to exhaustion. You will feel extra tired the first few days after surgery. Stay well hydrated. It is OK to walk up and down stairs You may return to driving when you are off narcotics (such as vicodin, oxycodone, dilaudid, etc), and you are back to normal functional capacity. If you have any concerns please check with office before driving. Return to work is specific to each patient and each surgery, so please speak with your doctor/PA at first follow up. Please bring paperwork such as FMLA at that time if you need it filled out. Medications: We recommend you take 1,000mg Tylenol every 8 hours for the first few weeks after surgery, if you do not have any liver issues and can tolerate this medication. Do not exceed 4,000mg daily. We will give you a short supply of narcotics after surgery (usually one weeks worth). If you need more please call the office but do not use more than prescribed. You will need to give our office 48 hours notice if you need narcotics refilled and we do not fill narcotics on weekends or evenings. If you are on a narcotic, it is a good idea to take a stool softener such as colace or senna to avoid constipation If you take blood thinner such as aspirin, Plavix, Coumadin, Effient, Eliquis etc for conditions such as Afib, DVT, Pulmonary embolus, coronary disease, stents etc please speak with your surgeon about specific details as to when you can resume these medications. You can resume NSAIDs on post op day 1 (eg: Motrin, Naproxen, etc). Follow up: Please call the office, , after surgery to arrange a 3 week follow up for wound check. Wound Care: You may remove your dressing on the first day after surgery. ?You may ?leave open to air. Please do not remove the steri strips underneath. they will fall off on their own in one week. IT IS NORMAL FOR THE WOUND TO OOZE OR BE BLOODY FOR A FEW DAYS AFTER SURGERY. ?IF THIS HAPPENS JUST PLACE NEW DRESSING OVER IT TO AVOID STAINING CLOTHES. You may shower on post op day # 1 We ask that you do not let the water soak the wound. If it does get wet, just towel dry lightly. Please do not scrub your incision or place any type of chemical/ointment on the wound. No tub baths, pools or jacuzzis for one month. If you have any leaking or redness from your wound, or fevers, please call the office. Care Plan Goals: Return to normal activity as tolerated Health Concerns: None Plan of Treatment: Follow-up in clinic in 2-3 weeks Assessment: POD: 2 Procedure: L4-5 OLIF Lea is a pleasant 64 year old female who underwent L4-[address] Peterson 2 days ago. She was seen sitting upright in her bedside chair watching T.V. She reports that overall her low back pain is better than it was yesterday. She continues to report no issues with her left lower extremity. She has been up out of bed multiple times with PT, and is voiding independently. She is tolerating her current diet. PT and case management have evaluated her and are recommending home with health services. They also asked that we provide an Rx for a walker. Afebrile, vital signs stable. Full strength 5/5 bilateral LE's. Back dressings have some staining without signs of hematoma. No active sanguineous drainage. Area is dry. Plan: The patient meets medical criteria to be discharged home. This was discussed with the attending neurosurgeon Dr. Peterson who is in agreement. I will complete a F2F for the patient for home PT. I also provided with a paper Rx for a walker to be filled at discharge at a [facility]. I will [place] in [place] of [place] [facility] [place]. Dorian Peterson MD,PhD [facility]
--- NOTE | 2024-07-16 13:51 | W.MHC.F2F ---
Service Date Service Date: 07/16/24 Encounter Date of encounter: 07/16/24 Reasons for Services Signs and symptoms assessed: s/p Lumbar fusion Reason for physical therapy: home safety and mobility, therapeutic exercises, gait/transfer training and ADL training Homebound: Leaving the home is medically contraindicated at this time without the asist of a device and/or another person due th the listed conditions above and below. Reason homebound: unsteady gait / fall risk, pain with ambulation, pain with transfers, shortness of breath at rest and weakness related to hospital stay Certification: Based on the above findings, I certify that this patient is confined to the home and needs intermittent jail care, physical therapy and/or speech therapy, or continues to need occupational therapy. The patient is under my care, and I have initiated the establishment of the plan of care. The patient will be followed by a physician who will periodically review the plan of care. Time Spent With Patient Time: Total time managing care of this patient today _12___ minutes.
--- NOTE | 2024-07-16 14:32 | MHC.CM.PN ---
PT WILL DC HOME TODAY WITH STACIE VASQUEZ FOR PT SERVICES SHE REPORTS SHE CAN GET A WALKER AT [facility] WITH HER [employer]SA CARD FAMILY WILL TRANSPORT
[2024-07-16] MEDS: oxyCODONE HCl Immed Release 5 MG TABLET PO (15:18)
[2024-07-16 15:19] VITALS: BP 133/63; PULSE 86; RESP 16; TEMP 36.6; O2SAT 96
== END 2024-07-16 15:40 | disposition home health service (06) | DRG 304 ==
LOC: HO.SSSA 06:34 → HO.S3 13:27
PROVIDERS: Hospitalist; Neurological Surgery; Nurse Practitioner; Physician Assistant; Admitting Provider Physician Assistant; PCP Internal Medicine; Visit Provider Physician Assistant
PROC: 0SG00A0 Fusion of Lumbar Vertebral Joint with Interbody Fusion Device, Anterior Approach, Anterior Column, Open Approach (ICD-10-PCS; principal; 2024-07-14 07:30)
DX: M43.16 Spondylolisthesis, lumbar region (principal); E03.9 Hypothyroidism, unspecified; M48.062 Spinal stenosis, lumbar region with neurogenic claudication; Z87.891 Personal history of nicotine dependence; Z79.890 Hormone replacement therapy; Z79.899 Other long term (current) drug therapy
CPT/HCPCS: 36415; 80048; 80053; 81003; 82947; 85025; 85027; 86850; 86900; 86901; 97116; 97162; 97535; C1713; C1889; J0131; J0665; J0666; J1100; J1171; J1630; J2003; J2250; J2405; J2704; J3010; J3370; J3371; L8699

== ENCOUNTER → 2024-07-14 06:04 | Outpatient (BNV) | payer BC, SELFPAY | PROVIDERS: Admitting Provider Physician Assistant; PCP Internal Medicine; Visit Provider Neurological Surgery | DX: M43.16 Spondylolisthesis, lumbar region (principal) | CPT/HCPCS: 20930; 22558; 22612; 22840; 22853; 99024; 99499; G0180 ==

== ENCOUNTER 2024-09-14 10:23 | Outpatient (AMB) | payer BC, SELFPAY ==
--- NOTE | 2024-09-14 10:28 | A.SPINEOV_ITS ---
Intake Visit Reasons: 2nd post op with xrays Intake Note: Ms. Rogers is here today for her 2nd post-op visit. [employer] Required: No Allergies amoxicillin (AMOXICILLIN) Allergy (Severe, Verified 07/09/24 10:25) HIVES/RASH, facial swelling codeine (CODEINE) Allergy (Severe, Verified 07/09/24 10:25) Nausea, vomitting ibuprofen Allergy (Severe, Verified 06/22/24 10:12) rash Sulfa (Sulfonamide Antibiotics) (SULFA(SULFONAMIDE ANTIBIOTICS)) Allergy (Severe, Verified 07/09/24 10:25) HIVES/RASH hydrocodone Adverse Reaction (Severe, Verified 07/09/24 10:25) Nausea, vomiting Assessment & Plan Assessment & Plan (1) S/P lumbar fusion: Code(s): Z98.1 - Arthrodesis status Category: Surgical Plan Procedure: L4-5 OLIF Lea comes in today for a 2nd postoperative visit after having a L4-[address] Peterson a couple of months ago. Thankfully, since her last v isit she states that she feels like she has completely healed from her surgery. She no longer has any of the pain that she had preoperatively. She is overall very satisfied with the procedure. Unfortunately our x-ray imaging suite is down, so she will need to go across the street to the hospital for x-rays after her visit today. I will review them once they are read by Radiology. No new neurological deficits the patient ambulates well and rises from a seated position without difficulty. Her posterior and lateral incision sites are closed and well healed. I would like care and to follow up with us 1 year out from her surgery, and obtain a CT scan 10 months out from surgery. Dorian Peterson MD,PhD [facility] Orders: Orders XR lumbar spine 4V min 09/14/24 M54.16 - Radiculopathy, lumbar region CT lumbar spine wo IV con 09/14/24 Z98.1 - Arthrodesis status Coding Level of Care Code Global (93874) Diagnoses S/P lumbar fusion Z98.1
== END 2024-09-14 11:08 | disposition home or self-care (01) ==
LOC: HO.HNS 10:24
PROVIDERS: PCP Internal Medicine; Visit Provider Physician Assistant
DX: Z98.1 Arthrodesis status (principal)
CPT/HCPCS: 99024

== ENCOUNTER → 2024-09-14 11:08 | Outpatient (BNV) | payer BC, SELFPAY | PROVIDERS: PCP Internal Medicine; Visit Provider Radiology Diagnostic Radiology | DX: M54.16 Radiculopathy, lumbar region (principal); Z98.1 Arthrodesis status | CPT/HCPCS: 72110 ==

== ENCOUNTER 2024-09-14 13:09 | Outpatient (REF) | payer SELFPAY ==
--- NOTE | ~2024-09-14 | XR_ITS ---
EXAMINATION: X-ray lumbar spine. CLINICAL INFORMATION: Radiculopathy, lumbar spine. TECHNIQUE: AP and lateral views. Lateral views during flexion and extension position. COMPARISON: June 22, 2024. FINDINGS: Transpedicular screws, bilaterally at L4 and L5. Intervertebral disc spacer placement at L4-5. 1 mm retrolisthesis at L3-4 in neutral and flexion and extension position. No gross motion at L4-5. Levoconvex curvature apex at L3. No acute cortical disruption. Small marginal 5 formation and endplate sclerosis throughout the axial skeleton. Osteopenia versus osteoporosis. Vascular calcifications, aorta. XR/XR lumbar spine 4V min IMPRESSION: Status post posterior lumbar fusion and intervertebral disc spacer placement at L4-5 without instability. Scoliosis. Grade 1 retrolisthesis without instability, L3-4. Electronically signed by: Robert Camarillo MD 09/14/2024 11:45 AM EDT
--- OUTSIDE RECORDS SUMMARY | 2024-09-14 11:51 | XMS_ITS | Patient Health Record ---
Author Organization [facility] Address [address] [place] [address] Care Team Providers Care Vp Treasurer Name Role Phone Armond Lopez MD Primary Care Provider Stanley Washington Unavailable [phone] Allergies Allergen (clinical drug ingredient) Drug/Non Drug Allergy documented on EMR Reaction Allergy Type Onset Date Status Sulfa Unknown Drug Allergy Active Codeine Phosphate Unknown Drug Allergy Active amoxicillin Amoxicillin Unknown Drug Allergy Act rick Reason For Referral No Information Medications Medication SIG (Take, Route, Frequency, Duration) Notes Start Date End Date Status Metoprolol Succinate ER 50 MG 1 tablet O rally Once a day Active hydroCHLOROthiazide 25 MG TAKE 1 TABLET BY MOUTH EVERY DAY IN THE MORNING Oral for 90 Active Omeprazole 20 MG TAKE 1 CAPSULE BY MOUTH EVERY DAY for 90 Active Tylenol 325 MG 1 tablet as needed Orally every 4 hrs Active Levothyroxine Sodium 100 MCG 1 tablet on an empty stomach in the morning Orally Once a day Active Immunizations Vaccine Route Administration Date Status Comme nts Influenza Unknown 06/11/2018 Refused Social History Tobacco Use: Social History Observation Description Date Details (start date - stop date) Former Smoker NA - NA Tobacco Use/Smoking Question Answer Notes Patient is a former smoker How long has it been since you last smoked? > 10 years Alcohol Screen Question Answer Notes Did you have a drink contain ing alcohol in the past year? Yes How often did you have a dri nk containing alcohol in the past year? Monthly or less (1 point) How many drinks did you have on a typical day when you were drinking in the past year? 1 or 2 drinks (0 point) How often did you have 6 or more drinks on one occasion in the past year? Never (0 point) Points 1 Interpretation Negative Section Notes: Nonsmoker > 10 yrs; no sig a lcohol Nonsmoker > 10 yrs; no sig a lcohol Problems Problem Type SNOMED Code ICD Code Onset Dates Problem Status W/U Status Risk Notes Problem 111583945 Encounter for screening for malignant neoplasm of colon (Z12.11) Active confirmed Problem 393411367 History of adenomatous polyp of colon (Z86.010) Active confirmed Problem 708481481202349 Preprocedural examination (Z01.818) Active confirmed Problem 86064929 Esophageal stricture (K22.2) Active confirmed Plan Of Treatment Future Test Test Name Order Date COLONOSCOPY 11/13/2017 Insurance Providers Payer Name Payer Address Payer Phone Subscriber Number Group Number Insured Name Patient Relationship to Insured Coverage Start Date Coverage End Date [facility] [address] [place], [place] [phone] [phone] [id number] CHRISTINE BEVERLY Self - patient is the insured Medical (General) History Medical History History ICD Code Hypothyroidism Hypertension Denies [place],DM,CVA,Lung disease,renal dise ase Esophageal obstruction from a food bolus in January 2018. This was relieved endoscopically by Dr. Parra Screening Colonoscopy in Feb--1 small tubular adenoma and several hyperplastic polyps removed removed EGD in February 2018--moderat e-sized hiatal hernia, mild reflux esophagitis, nonobstructing distal esophageal stricture dilated with an 18 to 20mm balloon; no Phillips's esophagus Surgical History Surgery Date(Month/Year) Broken nose surgery
--- OUTSIDE RECORDS SUMMARY | 2024-09-14 11:51 | XMS_ITS | Patient Health Record ---
Author Organization Armond Lopez MD Address [address] [place], [place] [id number] Care Team Providers Care Flat Hammerer Name Role Phone Armond Lopez Primary Care [...] ff Reviewed date:11/04/2023 12:36:56 PM Interpretation: Performing Lab:[facility], [address] [place] [phone] Notes/Report: White Blood Count 7.4 4.8-10.8 X10*3/uL [...] NRBC Abs Auto 0.000 0.0-0.012 X10*3/uL Comprehensive [place]. Panel Fa st Reviewed date:11/04/2023 12:57:12 PM Interpretation: Performing Lab:[facility], [address] [place] [phone] Notes/Report: Sodium 143 135-145 mmol/L Potassium 3.7 3.3-5.1 mmol/L Chloride 105 96-108 mmol/L Carbon Dioxide 28 22-29 mmol/L Anion Gap 14 12-20 Blood Urea Nitrogen 17 9-16 mg/dL Creatinine 0.86 0.5-1.4 mg/dL Estimated Glomerular Filt Rate > 60 NOTE: For -Martiniqu[place] individuals, multiply the result by 1.210. Chronic [...] Panel Reviewed date:11/04/2023 12:36:30 PM Interpretation: Performing Lab:[address] [address] Notes/Report: Triglycerides 82 <150 mg/dL Desirable Triglyceride: [...] Total Reviewed date:11/04/2023 12:36:18 PM Interpretation: Performing Lab:[address] [phone] Notes/Report: Vitamin D 25-OH Total 66.1 >30 [...] T4 Reviewed date:11/04/2023 12:37:05 PM Interpretation: Performing Lab:[address] [address] Notes/Report: TSH reflex Free T4 0.35 0.32-4.0 uIU/mL UA ClnCatch+Micro w/rflx Cul t Reviewed date:11/04/2023 12:46:51 PM Interpretation: Performing Lab:[facility], [address] [place] [phone] Notes/Report: Urine, Clean Catch Color Urine Yellow Appearance Urine Clear PH 6.0 5.0-9.0 Glucose Urine UA Negative Negative mg/dL Urine Blood Negative Negative Specific [place] - Urine 1.025 1.005-1.025 Urine Protein Negative Neg-Trace mg/dL Urine Ketones Negative Negative mg/dL Nitrite Urine Negative Negative Leukocyte Esterase Urine Negative Negative RBC Urine 0-2 0-2 /HPF WBC Urine 0-5 0-5 /HPF Squamous Epithelial Cell Urine 0-2 0-2 /HPF Bacteria Urine None Seen None Seen Hyaline Casts Urine 0-2 0-2 /LPF Hold Gold Reviewed date:11/04/2023 12:37:13 PM Interpretation: Performing Lab:[facility], [address] [place] [phone] Notes/Report: Hold Gold See Note Specimen held untested for 24 hours; Call to request Chemistry testing. XR lumbar spine 4V min Reviewed date:03/05/2024 05:39:32 PM Interpretation: Performing Lab: Notes/Report: [address] [address] XRay Report Signed Patient: Lea Rogers MR#: [id number] 8 : 1960 Acct:[id number] Age/Sex: 63 / F ADM Date: 03/04/24 Loc: VAL[facility] Attending Dr: Howard ESCUDERO Ordering Physician: Howard Hernandez Date of Service: 03/04/24 Procedure(s): XR lumbar spine 4V min Accession Number(s): [id number] cc: Armond Lopez MD; Howard Hernandez EXAMINATION: [...] by: Tolu Dyer MD 03/04/2024 12:09 PM [facility] Dictated By: Tolu Dyer MD Signed By: <Electronically signed by Tolu Dyer MD in OV> 03/04/24 1209 DD/ 1135 TD/TT: 03/04/24 1153 Electronic Data Processing Auditor: [place] [address] XRay Report Signed Patient: Lea Rogers MR#: [id number] 8 : 1960 Acct:[id number] Age/Sex: 63 / F ADM Date: 03/04/24 Loc: HO.XRAY Attending Dr: Lucien ESCUDERO Ordering Physician: Howard Hernandez Date of Service: 03/04/24 Procedure(s): XR lum bar spine 4V min Accession Number(s): [id number] cc: Armond Lopez MD; Howard Hernandez EXAMINATION: [...] by: Tolu Dyer MD 03/04/2024 12:09 PM EST RP Dictated By: Tolu Dyer MD Signed By: <Electronically signed by Tolu Dyer MD in OV> 03/04/24 1209 DD/ 1135 TD/TT: 03/04/24 1153 Electronic Data Processing Auditor: TAYLOR MM tomosynthesis screening B I Reviewed date:05/18/2024 05:30:53 PM Interpretation: Performing Lab: Notes/Report: [facility] [place] [address] Mammography Report Signed Patient: Lea Rogers MR#: [id number] 8 : 1960 Acct:[id number] Age/Sex: 63 / F ADM Date: 05/11/24 Loc: HO.MAMMO Attending Dr: Armond Lopez MD Ordering Physician: Armond Lopez MD Results: 0In complete: Needs Additional Imaging Evaluation Date of Service: 05/11/24 Follow Up: Additional Imagi ng Procedure(s): MM tomosynthesis screening BI Accession Number(s): [id number] cc: Armond Lopez MD EXAMINATION: MM SCREENING [...] Roula Urena DO 05/17/2024 01:12 PM EDT RP Dictated By: Roula Urena DO Signed By: <Electronically signed by Roula Urena DO in OV> 05/17/24 1312 DD/ 1600 TD/TT: 05/11/24 1612 Electronic Data Processing Auditor: [place] [facility] [address] [place] [address] Mammography Report Signed Patient: Lea Rogers MR#: [id number] 8 : 1960 Acct:[id number] Age/Sex: 63 / F ADM Date: 05/11/24 Loc: HO.MAMMO Attending Dr: Armond Lopez MD Ordering Physician: Armond Lopez MD Results: 0In complete: Needs Additional Imaging Evaluation Date of Service: 05/11/24 Follow Up: Additional Imagi ng Procedure(s): MM tomosynthesis screening BI Accession Number(s): [id number] cc: Armond Lopez MD EXAMINATION: MM SCREENING [...] Roula Urena DO 05/17/2024 01:12 PM EDT RP Dictated By: Roula Urena DO Signed By: <Electronically signed by Roula Urena DO in OV> 05/17/24 1312 DD/ 1600 TD/TT: 05/11/24 1612 Electronic Data Processing Auditor: MM tomosynthesis added views R Reviewed date:06/10/2024 05:15:19 PM Interpretation: Performing Lab: Notes/Report: [facility] [address] [place] [address] Mammography Report Signed Patient: Lea Rogers MR#: [id number] 8 : 1960 Acct:[id number] Age/Sex: 64 / F ADM Date: 06/10/24 Loc: HO.MAMMO Attending Dr: Armond Lopez MD Ordering Physician: Armond Lopez MD Results: 2Be nign Findings Date of Service: 06/10/24 Follow Up: 1 Year From [facility] Mammogram Procedure(s): MM tomosynthesis added views R Accession Number(s): [id number] cc: Armond Lopez MD EXAMINATION: MM DIAGNOSTIC [...] 06/10/24 1237 DD/ 1000 TD/TT: 06/10/24 1028 Electronic Data Processing Auditor: [facility] [address] [place] [address] Mammography Report Signed Patient: Lea Rogers MR#: [id number] 8 : 1960 Acct:[id number] Age/Sex: 64 / F ADM Date: 06/10/24 Loc: HO.MAMMO Attending Dr: Armond Lopez MD Ordering Physician: Armond Lopez MD Results: 2Be nign Findings Date of Service: 06/10/24 Follow Up: 1 Year From [facility] Mammogram Procedure(s): MM tomosynthesis added views R Accession Number(s): [id number] cc: Armond Lopez MD EXAMINATION: MM DIAGNOSTIC [...] 06/10/24 1237 DD/ 1000 TD/TT: 06/10/24 1028 Electronic Data Processing Auditor: US breast RT limited mamm on ly Reviewed date:06/10/2024 05:15:39 PM Interpretation: Performing Lab: Notes/Report: [facility] [address] [place] [address] Ultrasound Report Signed Patient: Lea Rogers MR#: [id number] 8 : 1960 Acct:[id number] Age/Sex: 64 / F ADM Date: 06/10/24 Loc: HO.MAMMO Attending Dr: Armond Lopez MD Ordering Physician: Armond Lopez MD Date of Service: 06/10/24 Procedure(s): US breast RT limited mamm only Accession Number(s): [id number] cc: Armond Lopez MD EXAMINATION: MM DIAGNOSTIC [...] 06/10/24 1237 DD/ 1030 TD/TT: 06/10/24 1057 Electronic Data Processing Auditor: [facility] [address] [place] [address] Ultrasound Report Signed Patient: Lea Rogers MR#: [id number] 8 : 1960 Acct:[id number] Age/Sex: 64 / F ADM Date: 06/10/24 Loc: HO.MAMMO Attending Dr: Armond Lopez MD Ordering Physician: Armond Lopez MD Date of Service: 06/10/24 Procedure(s): US dickson ast RT limited mamm only Accession Number(s): [id number] cc: Armond Lopez MD EXAMINATION: MM DIAGNOSTIC [...] 06/10/24 1237 DD/ 1030 TD/TT: 06/10/24 1057 Electronic Data Processing Auditor: XR lumbar spine 4V min Reviewed date:06/22/2024 03:03:21 PM Interpretation: Performing Lab: Notes/Report: [facility] [address] [place] [address] Drive [address] [place] [address] XRay Report Signed Patient: Lea Rogers MR#: [id number] 8 : 1960 Acct:[id number] Age/Sex: 64 / F ADM Date: 06/22/24 Loc: IR[facility] Attending Dr: Dorian ESCUDERO Ordering Physician: Dorian Minor Date of Service: 06/22/24 Procedure(s): XR lumbar spine 4V min Accession Number(s): [id number] cc: Armond Lopez MD; Dorian Minor EXAMINATION: XR LUMBOSACRAL SPINE CLINICAL INFORMATION: M54.16 - Radiculopathy, lumbar region COMPARISON: 03/04/2024. TECHNIQUE: 4 views of the lumbar spine, inclusive of flexion and extension views, were obtained. FINDINGS: Normal bone mineralization. Mild levoconvex scoliosis, apex at L3. Normal lordosis. No fracture, compression deformity, or suspicious bone lesion. There is a 3 mm degenerative appearing retrolisthesis of L3 on L4, a 5 mm degenerative appearing anterolisthesis of L4 on L5. There is normal facet alignment. There are degenerative facet changes left greater than right spanning L3-S1. On flexion exam, there is no change in the subtle subluxations. On extension exam, there is no change in the subtle subluxations. There is no evidence of instability. Soft tissues demonstrate minimal vascular calcifications. Moderate degenerative changes in the SI joints bilaterally. XR/XR lumbar spine 4V min IMPRESSION: 1. Mild to moderate spondylosis with mild levoconvex scoliosis. 2. No evidence of instability on flexion and extension views. Electronically signed by: Tony Menjivar MD 06/22/2024 12:38 PM EDT Dictated By: Tony Menjivar MD Signed By: <Electronically signed by Tony Menjivar MD in OV> 06/22/24 1238 DD/ 1058 TD/TT: 06/22/24 1105 Electronic Data Processing Auditor: [facility] [address] [place] [address] XRay Report Signed Patient: Lea Rogers MR#: [id number] 8 : 1960 Acct:[id number] Age/Sex: 64 / F ADM Date: 06/22/24 Loc: [facility] Attending Dr: Dorian ESCUDERO Ordering Physician: Dorian Minor Date of Service: 06/22/24 Procedure(s): XR lum bar spine 4V min Accession Number(s): [id number] cc: Armond Lopez MD; Dorian Minor EXAMINATION: XR LUMBOSACRAL SPINE CLINICAL INFORMATION: M54.16 - Radiculopat hy, lumbar region COMPARISON: 03/04/2024. TECHNIQUE: 4 views of the lumba r spine, inclusive of flexion and extension views, were obtained. FINDINGS: Normal bone mineralization. Mild levoconvex scoliosis, apex at L3. Normal lordosis. No fracture, compression deformity, or suspicious bone lesion. There is a 3 mm degenerative appearing retrolisthesis of L3 on L4, a 5 mm degenerative appearing anterolisthesis of L4 on L5. There is normal face t alignment. There are degenerative facet changes left greater than ri ght spanning L3-S1. On flexion exam, the re is no change in the subtle subluxations. On extension exam, there is no change in the subtle subluxations. There is no evidence of instability. Soft tissues demonstrate minimal vascular calcifications. Moderate degenerativ e changes in the SI joints bilaterally. XR/XR lumbar spine 4V min IMPRESSION: 1. Mild to moderate spondylosis with mild levoconvex scoliosis. 2. No evidence of instability on flexion and extension views. Electronically anastacia d by: Tony Menjivar MD 06/22/2024 12:38 PM EDT Dictated By: Tony Menjivar MD Signed By: <Electronically signed by Tony Menjivar MD in OV> 06/22/24 1238 DD/ 1058 TD/TT: 06/22/24 1105 Electronic Data Processing Auditor: Complete Blood Count no Diff Reviewed date:07/09/2024 12:32:46 PM Interpretation: Performing Lab:[facility], [address] [place] [phone] Notes/Report: White Blood Count 7.7 4.8-10.8 X10*3/uL Red Blood Count 4.18 4.20-5.50 X10*6/uL Hemoglobin 13.2 12.0-16.0 g/dl Hematocrit 38.7 37.0-47.0 % Mean Corpuscular Volume 92.6 80.0-98.0 fL Mean Corpuscular Hemoglobin 31.6 27.0-33.0 pg Mean Corpuscular HGB Conc 34.1 31.0-35.0 g/dl Red Cell Distribution Width 12.6 11.0-16.0 % Platelet Count 222 160-400 X10*3/uL Mean Platelet Volume 13.0 9.4-12.3 fL NRBC Pct Auto 0.0 0.0-0.2 /100WBC NRBC Abs Auto 0.000 0.0-0.012 X10*3/uL Basic Metabolic Panel Reviewed date:07/09/2024 04:08:50 PM Interpretation: Performing Lab:[facility], [address] [place] [phone] Notes/Report: Sodium 141 135-145 mmol/L Potassium 3.9 3.3-5.1 mmol/L Chloride 104 96-108 mmol/L Carbon Dioxide 28 22-29 mmol/L Anion Gap 13 12-20 Blood Urea Nitrogen 17 9-16 mg/dL Creatinine 0.80 0.5-1.4 mg/dL Creatinine Clr Calc Pharmacy 77.9 Provided height and weight: 162.56 cm, 87.09 kg. eGFR (calculated from the MDRD study equation) and eCrCl (calculated from the Cockcroft-Gault equation) are based on different parameters and may not yield comparable results. If eCrCl result is absurd, please check patient's height/weight. Estimated Glomerular Filt Rate > 60 Chronic Kidney Disease: Estimated GFR < 60 mL/min/1.73m2 Severe Kidney Disease: Estimated GFR < 15 mL/min/1.73m2 Glucose Random 117 60-115 mg/dL Calcium 9.8 8.4-10.2 mg/dL Type and Screen Reviewed date:07/09/2024 12:32:31 PM Interpretation: Performing Lab:[facility], [address] [place] [phone] Notes/Report: WITNESSED BY [facility] NURSING: Call Blood Bank (ext. [phone]) to band patient on admission. Type and Screen in effect until 2300 on 07-14-2024 07/14/24 Blood Type OP Antibody Screen NEGATIVE FL guidance in OR Reviewed date:07/14/2024 12:28:03 PM Interpretation: Performing Lab: Notes/Report: [address] [address] Fluoroscopy Report Signed Patient: Lea Rogers MR#: [id number] 8 : 1960 Acct:[id number] Age/Sex: 64 / F ADM Date: 07/14/24 Loc: HO.SSSA SSSA-[address]: Dorian ESCUDERO Ordering Physician: Dorian Minor Date of Service: 07/14/24 Procedure(s): FL guidance in OR Accession Number(s): [id number] cc: Armond Lopez MD; Dorian Minor EXAMINATION: FL GUIDANCE ONLY HISTORY: L4-5 OLIF COMPARISON: Correlation is made to plain films of the lumbar spine dated 06/22/2024. TECHNIQUE: Fluoroscopy time: 1 minute, 21 seconds. Cumulative Dose: 22.17 mGy. DAP: 14.58 mGym2 Images: 6. FINDINGS: Fluoroscopic spot films of the lumbar spine demonstrate posterior fusion of L4 and L5 with pedicle screws, spinal stabilization rods, and an intervertebral spacer. FL/FL guidance in OR IMPRESSION: Fluoroscopy during procedure. Please see procedure report for additional information. Electronically signed by: Stanley Shelby MD 07/14/2024 10:37 AM EDT Dictated By: Stanley Shelby MD Signed By: <Electronically signed by Stanley Shelby MD in OV> 07/14/24 1037 DD/ 0739 TD/TT: 07/14/24 1000 Electronic Data Processing Auditor: [address] [address] Fluoroscopy Report Signed Patient: Lea Rogers MR#: [id number] 8 : 1960 Acct:[id number] Age/Sex: 64 / F ADM Date: 07/14/24 Loc: HO.SSSA SSSA-[address]: Dorian ESCUDERO Ordering Physician: Dorian Minor Date of Service: 07/14/24 Procedure(s): FL guidance in OR Accession Number(s): [id number] cc: Armond Lopez MD; Dorian Minor EXAMINATION: FL GUIDANCE ONLY HISTORY: L4-5 OLIF COMPARISON: Correlation is made to plain films of the lumbar spine dated 06/22/2024. TECHNIQUE: Fluoroscopy time: 1 minute, 21 seconds. Cumulative Dose: 22. 17 mGy. DAP: 14.58 mGym2 Images: 6. FINDINGS: Fluoroscopic spot fi lms of the lumbar spine demonstrate posterior fusion of L4 and L5 with pedicle screws, spinal stabilization rods, and an intervertebral spacer. FL/FL guidance in OR IMPRESSION: Fluoroscopy during procedure. Please see procedure report for additional information. Electronically anastacia d by: Stanley Shelby MD 07/14/2024 10:37 AM EDT RP Dictated By: Stanley Shelby MD Signed By: <Electronically signed by Stanley Shelby MD in OV> 07/14/24 1037 DD/ 0739 TD/TT: 07/14/24 1000 Electronic Data Processing Auditor: Complete Blood Count Auto Di ff Reviewed date:07/18/2024 07:52:49 PM Interpretation: Performing Lab:[facility], [address] [place] [phone] Notes/Report: White Blood Count 11.4 4.8-10.8 X10*3/uL Red Blood Count 3.64 4.20-5.50 X10*6/uL Hemoglobin 11.6 12.0-16.0 g/dl Hematocrit 33.7 37.0-47.0 % Mean Corpuscular Volume 92.6 80.0-98.0 fL Mean Corpuscular Hemoglobin 31.9 27.0-33.0 pg Mean Corpuscular HGB Conc 34.4 31.0-35.0 g/dl Red Cell Distribution Width 13.0 11.0-16.0 % Platelet Count 170 160-400 X10*3/uL Mean Platelet Volume 12.8 9.4-12.3 fL Neutrophils Percent Auto 75.2 45-73 % Imm Gran Pct Auto 0.6 0.0-0.4 % Lymphocytes Percent Auto 12.4 20-40 % Monocytes Percent Auto 10.5 2-11 % Eosinophils Percent Auto 1.1 0-4 % Basophils Percent Auto 0.2 0-2 % NRBC Pct Auto 0.0 0.0-0.2 /100WBC Neutrophils Absolute Auto 8.6 2.0-8.3 x10*3/uL Imm Gran Abs Auto 0.07 0.00-0.03 X10*3/uL Lymphocytes Absolute Auto 1.4 1.2-4.9 X10*3/uL Monocytes Absolute Auto 1.2 0.1-1.2 X10*3/uL Eosinophils Absolute Auto 0.1 0.0-0.4 X10*3/uL Basophils Absolute Auto 0.0 0.0-0.2 X10*3/uL NRBC Abs Auto 0.000 0.0-0.012 X10*3/uL Comprehensive Met. Panel Reviewed date:07/17/2024 06:57:27 PM Interpretation: Performing Lab:[facility], [address] [place] [phone] Notes/Report: Sodium 141 135-145 mmol/L Potassium 3.4 3.3-5.1 mmol/L Chloride 105 96-108 mmol/L Carbon Dioxide 28 22-29 mmol/L Anion Gap 11 12-20 Blood Urea Nitrogen 12 9-16 mg/dL Creatinine 0.73 0.5-1.4 mg/dL Creatinine Clr Calc Pharmacy 89.4 Provided height and weight: 162.56 cm, 95.2 kg. eGFR (calculated from the MDRD study equation) and eCrCl (calculated from the Cockcroft-Gault equation) are based on different parameters and may not yield comparable results. If eCrCl result is absurd, please check patient's height/weight. Estimated Glomerular Filt Rate > 60 Chronic Kidney Disease: Estimated GFR < 60 mL/min/1.73m2 Severe Kidney Disease: Estimated GFR < 15 mL/min/1.73m2 Glucose Random 139 60-115 mg/dL Calcium 9.1 8.4-10.2 mg/dL Bilirubin Total 0.4 0.0-1.0 mg/dL Aspartate Amino Transferase 38 5-31 U/L Alanine Aminotransferase 31 0-31 U/L Total Protein 6.2 6.5-8.0 g/dL Albumin Level 3.7 3.5-5.0 g/dL Alkaline Phosphatase 51 39-117 U/L Glucose, Whole Blood Reviewed date:07/16/2024 12:37:44 PM Interpretation: Performing Lab:[facility], [address] [place] [phone] Notes/Report: Glucose, Whole Blood 129 60-115 mg/dL METER # : [id number] UA CC w/rflx Micro + Cult Reviewed date:07/17/2024 06:57:03 PM Interpretation: Performing Lab:[facility], [address] [place] [phone] Notes/Report: [id number] Urine, Clean Catch Color Urine Yellow Appearance Urine Clear PH 6.5 5.0-9.0 Glucose Urine UA Negative Negative mg/dL Urine Blood Negative Negative Specific [place] - Urine 1.010 1.005-1.025 Urine Protein Negative Neg-Trace mg/dL Urine Ketones Negative Negative mg/dL Nitrite Urine Negative Negative Leukocyte Esterase Urine Negative Negative XR lumbar spine 4V min (Not yet reviewed by provider) Interpretation: Performing Lab: Notes/Report: [facility] [address] [place] [address] XRay Report Signed Patient: Lea Rogers MR#: [id number] 8 : 1960 Acct:[id number] Age/Sex: 64 / F ADM Date: 09/14/24 Loc: HO.HOSX Attending Dr: Dorian ESCUDERO Ordering Physician: Dorian Minor Date of Service: 09/14/24 Procedure(s): XR lumbar spine 4V min Accession Number(s): [id number] cc: Armond Lopez MD; Dorian Minor EXAMINATION: X-ray lumbar spine. CLINICAL INFORMATION: Radiculopathy, lumbar spine. TECHNIQUE: AP and lateral views. Lateral views during flexion and extension position. COMPARISON: June 22, 2024. FINDINGS: Transpedicular screws, bilaterally at L4 and L5. Intervertebral disc spacer placement at L4-5. 1 mm retrolisthesis at L3-4 in neutral and flexion and extension position. No gross motion at L4-5. Levoconvex curvature apex at L3. No acute cortical disruption. Small marginal 5 formation and endplate sclerosis throughout the axial skeleton. Osteopenia versus osteoporosis. Vascular calcifications, aorta. XR/XR lumbar spine 4V min IMPRESSION: Status post posterior lumbar fusion and intervertebral disc spacer placement at L4-5 without instability. Scoliosis. Grade 1 retrolisthesis without instability, L3-4. Electronically signed by: Robert Camarillo MD 09/14/2024 11:45 AM EDT RP Dictated By: Robert Alonzo MD Signed By: <Electronically signed by Robert Zapata MD in OV> 09/14/24 1145 DD/ 1123 TD/TT: 09/14/24 1129 Electronic Data Processing Auditor: [facility] [address] [place] [address] XRay Report Signed Patient: Lea Rogers MR#: [id number] 8 : 1960 Acct:[id number] Age/Sex: 64 / F ADM Date: 09/14/24 Loc: IR[facility] Attending Dr: Dorian ESCUDERO Ordering Physician: Dorian Minor Date of Service: 09/14/24 Procedure(s): XR lum bar spine 4V min Accession Number(s): [id number] cc: Armond Lopez MD; Dorian Minor EXAMINATION: X-ray lumbar spine. CLINICAL INFORMATION: Radiculopathy, lumba r spine. TECHNIQUE: AP and lateral views. Lateral views during flexion and extension position. COMPARISON: June 22, 2024. FINDINGS: Transpedicular screw s, bilaterally at L4 and L5. Intervertebral disc spacer placement at L4-5. 1 mm retrolisthesis at L3-4 in neutral and flexion and extension position. No gross motion at L4-5. Levoconvex curvature apex at L3. No acute cortical disruption. Small marginal 5 formation and endplate sclerosis throughout the axial skeleton. Osteopenia versus osteoporosis. Vascular calcifications, aorta. XR/XR lumbar spine 4V min IMPRESSION: Status post posterio r lumbar fusion and intervertebral disc spacer placement at L4-5 without instability. Scoliosis. Grade 1 retrolisthes is without instability, L3-4. Electronically anastacia d by: Robert Camarillo MD 09/14/2024 11:45 AM EDT RP Dictated By: Robert Otero MD Signed By: <Electronically signed by Robert Zapata MD in OV> 09/14/24 1145 DD/ 1123 TD/TT: 09/14/24 1129 Electronic Data Processing Auditor: Reason For Referral Reason SCIATICA OF LEFT ANDREA E Diagnosis 1 Sciatica of left andrea e (M54.32) Referral Organization Armond Lopez MD Referring Provider First Name Armond Referring Provider Last Name Jessica Referring Provider Speciality Internal M edicine Referred Provider [facility] Referred Provider Specialty Pain Medicin e General Notes Ivet Odom 0 02/24/2024 09:36:09 AM >appt is in the [facility] office, patient is aware of apptGisela Patti A 03/12/2024 08:18:42 AM >office note [...] TAKE 1 TABLET DAILY for 90 Active Levothyroxine Sodium 100 MCG TAKE 1 TABL ET BY MOUTH EVERY DAY IN THE MORNING ON EMPTY STOMACH Orally Once a day for 90 days Active ProAir RespiClick 108 (90 Base) MCG/ACT [...] for 90 Active Vitamin D 50 MCG (2000 UT) 1 capsule Ora lly Once a day 07/20/2019 Active Potassium Chloride ER 10 MEQ TAKE 1 TABL ET BY MOUTH EVERY DAY WITH FOOD for 90 Active Immunizations Vaccine Route Administration [...] Notes Problem Neutropenia (D70.9) Active confirmed Problem 12213920 Vitamin D deficiency (E55.9) Active confirmed Problem Disorder of lumbar disc (060317354) Lumbar disc disease (M51.9) Active confirmed Problem 08721224 Essential hypertension (I10) Active confirmed Problem 8744514 Psoriasis (L40.9) Active confirmed Problem 972062309 Acquired hypothyroidism (E03.9) Active confirmed Problem 7808775 Prediabetes (R73.09) Active confirmed Problem 057729599509761 Sciatica of left side (M54.32) Active confirmed Problem 97848289 Atherosclerosis (I70.90) Active confirmed Problem 806314726 Elevated LDL cholesterol level (E78.00) Active confirmed Problem 226055332 Osteopenia determined by x-ray (M85.80) Active confirmed Problem 669957275 BMI 31.0-31.9,adult (Z68.31) Active confirmed Problem 35202692 Chronic allergic rhinitis (J30.9) Active confirmed Vital [...] Date Provider Diagnosis Armond Lopez MD [address] [place] [phone] 11/04/2023 Armond Lopez Blood tests for routine general physical examination Z00.00 ; Acquired hypothyroidism E03.9 ; Essential hypertension I10 ; Elevated LDL cholesterol level E78.00 ; Vitamin D deficiency E55.9 and Neutropenia D70.9 Armond Lopez MD [address] [place] [phone] 11/11/2023 Armond Lopez Prediabetes R73.09 ; Annual physical exam Z00.00 ; Essential hypertension I10 ; Acquired hypothyroidism E03.9 ; Elevated LDL cholesterol level E78.00 ; Vitamin D deficiency E55.9 and Depression screening Z13.31 Armond Lopez MD [address] [place] [address] [id number] 02/14/2024 Armond Wesleyardier Sciatica of left andrea e M54.32 Armond Lopez MD [address] [place] [address] [id number] 02/21/2024 Armond Bombardier Sciatica of left andrea e M54.32 Armond Lopez MD [address] [place] [address] [id number] 03/06/2024 Armond Bombardier Sciatica of left andrea e M54.32 Armond Lopez MD [address] [place] [address] [id number] 04/06/2024 Armond Bombardier Sciatica of left andrea e M54.32 Armond Lopez MD [address] [place] [address] [id number] 05/08/2024 Armond Lopez Lumbar disc disease with radiculopathy M51.16 and URI (upper respiratory infection) J06.9 Armond Lopez MD [address] [place] [address] [id number] 05/28/2024 Armond Bombardier Psoriasis L40.9 and Lumbar disc disease M51.9 Armond Lopez MD [address] [place] [address] [id number] 06/19/2024 Armond Lopez Lumbar disc disease with radiculopathy M51.16 Armond Lopez MD [address] [place] [address] [id number] 02/24/2024 Armond Lopez MD [address] [place] [address] [id number] 03/09/2024 Armond Lopez Acquired hypothyroidism E03.9 Armond Lopez MD [address] [place] [address] [id number] 04/16/2024 Armond Lopez MD [address] [place] [address] [id number] 05/26/2024 Armond Lopez MD [address] [place] [address] [id number] 07/17/2024 Armond Lopez MD [address] [place] [address] [id number] 09/03/2024 Armond Lopez Acquired hypothyroidism E03.9 Assessments Encounter Date Diagnosis (ICD Code) Assessment Notes Treatment Notes Treatment Clinical Notes Section Notes 11/04/2023 Blood tests for routine general physical examination (ICD-10 - Z00.00) 11/04/2023 Acquired hypothyroidism (ICD-10 - E03.9) 11/11/2023 Prediabetes (ICD-10 - R73.09) stable, no need for medication at this time, will contiue to monitor 11/11/2023 Annual physical exam (ICD-10 - Z00.00) labs reviewed and discussed with patient 02/14/2024 Sciatica of left side (ICD-10 - M54.32) is intolerant of nsaids/ referral to [facility], patient verbalized understanding of medication and directions for use 02/21/2024 Sciatica of left side (ICD-10 - M54.32) 03/06/2024 Sciatica of left side (ICD-10 - M54.32) is going to [facility] for physical therapy and follow up with [...] - M51.16) need results of mri at [facility] 05/08/2024 URI (upper respiratory infection) (ICD-10 - J06.9) sounds like she has a cold. no need for any treatment 05/28/2024 Psoriasis (ICD-10 - L40.9) stable, will cntonue current regiment 05/28/2024 Lumbar disc disease (ICD-10 - M51.9) is going to get an injectio at [facility] 06/01 and wants an extension of her fmla. / needs extension from 04/13 until june 22 06/19/2024 Lumbar disc disease with radiculopathy (ICD-10 - M51.16) seems most likely will need surgery is going to see surgeon, patient verbalized understanding of medication and directions for use 03/09/2024 Acquired hypothyroidism (ICD-10 - E03.9) 09/03/2024 Acquired hypothyroidism (ICD-10 - E03.9) 11/04/2023 Essential hypertension (ICD-10 - I10) 11/11/2023 Essential hypertension (ICD-10 - I10) will [...] THE REFERRAL CAMPO S BEEN FAXED TO [facility] 05/08/2024 Other RESULTS REQUEST ED FOR MED RECORDS @ [facility] Plan Of Treatment Pending Test Test Name Order Date Electrocardiogram (EKG) 05/30/2017 Electrocardiogram (EKG) 07/17/2018 Urinalysis 07/18/2020 XR DEXA axial skeleton 07/25/2020 XR lumbar spine 4V min 09/14/2024 Next Appt Details Provider Name:Armond Shelley ier, 11/10/2024 07:00:00 AM, [address] [place] [address], [address], [phone], Provider Name:Armond Shelley ier, 11/16/2024 03:30:00 PM, [address] [place] [address], [place] [address], [place], [place], [phone], Insurance Providers Payer Name Payer Address Payer Phone Subscriber Number Group Number Insured Name Patient Relationship to Insured Coverage Start Date Coverage End Date [employer] [facility] [address] [place], [place] [id number] Lea Rogers Self - patient is the insured Medical (General) History Medical History History ICD Code 03/31/2013 - Discussed colono scopy and pap smear is going to do them 2015 and 2017 discussed again 03/07/2018 - Colonoscopy by Dr. Peguero re peat due 02/202303/07/2018 - Endo by Dr. Peguero can take aspirin
== END 2024-09-14 13:10 | disposition home or self-care (01) ==
LOC: HO.HOSX 13:09
PROVIDERS: PCP Internal Medicine; Visit Provider Physician Assistant
DX: Z47.89 Encounter for other orthopedic aftercare (principal); M54.16 Radiculopathy, lumbar region; Z98.1 Arthrodesis status
CPT/HCPCS: 72110

== ENCOUNTER 2024-12-25 10:56 | Outpatient (REF) | payer BC, SELFPAY ==
[2024-12-25 11:00] LABS: MANUAL DIFF FLAG NO
[2024-12-25 11:36] LABS: Hematocrit 39.7 % (37.0-47.0); Hemoglobin 13.1 g/dl (12.0-16.0); Imm Gran Abs Auto 0.02 X10*3/uL (0.00-0.03); Imm Gran Pct Auto 0.3 % (0.0-0.4); Lymphocytes Absolute Auto 2.0 X10*3/uL (1.2-4.9); Mean Corpuscular HGB Conc 33.0 g/dl (31.0-35.0); Mean Corpuscular Hemoglobin 30.7 pg (27.0-33.0); Mean Corpuscular Volume 93.0 fL (80.0-98.0); NRBC Abs Auto 0.000 X10*3/uL (0.0-0.012); NRBC Pct Auto 0.0 /100WBC (0.0-0.2); Platelet Count 212 X10*3/uL (160-400); Red Blood Count 4.27 X10*6/uL (4.20-5.50); White Blood Count 7.0 X10*3/uL (4.8-10.8)
[2024-12-25 11:44] LABS: Appearance Urine Clear; Glucose Urine UA Negative (Negative); PH 6.5 (5.0-9.0); Specific Gravity - Urine 1.010 (1.005-1.025); UMIC TRIGGER UACC YES
[2024-12-25 11:52] LABS: Alanine Aminotransferase 33 U/L (0-31); Albumin Level 4.5 g/dL (3.5-5.0); Alkaline Phosphatase 76 U/L (39-117); Anion Gap 13 (12-20); Aspartate Amino Transferase 27 U/L (5-31); Blood Urea Nitrogen 13 mg/dL (9-16); Calcium 9.4 mg/dL (8.4-10.2); Carbon Dioxide 29 mmol/L (22-29); Chloride 106 mmol/L (96-108); Cholesterol 186 mg/dL (<200); Estimated Glomerular Filt Rate > 60; HDL Cholesterol 46 mg/dL (>40); Potassium 3.6 mmol/L (3.3-5.1); Sodium 144 mmol/L (135-145); Total Protein 6.9 g/dL (6.5-8.0); Triglycerides 80 mg/dL (<150)
== END 2024-12-25 10:57 | disposition home or self-care (01) ==
LOC: HO.LNP 10:56
PROVIDERS: Visit Provider Internal Medicine
DX: Z00.00 Encounter for general adult medical examination without abnormal findings (principal); I10 Essential (primary) hypertension; E03.9 Hypothyroidism, unspecified; E78.00 Pure hypercholesterolemia, unspecified; E55.9 Vitamin D deficiency, unspecified
CPT/HCPCS: 80053; 80061; 81001; 82306; 84443; 85025